=== PATIENT | male | born 1955 | race Caucasian/White ===

== ENCOUNTER 2019-11-09 18:35 | Inpatient (IN) | payer BC, OTHER ==
--- OUTSIDE RECORDS SUMMARY | 2019-11-09 18:47 | XMS REPORT | Continuity of Care Document ---
:1955 Author Organization [employer] Care Team Providers Name Role Phone [employer] Unavailable Un available Problems Problem Status Onset Classification Date Comments Sourc e Date Reported Abdominal aortic OPID aneurysm, without 018 9 Peace gar Land rupture Discharge Diagnosis: Sugar Flank pain 015 5 Land Discharge Diagnosis: Sugar Diverticulitis 015 5 Land SENT BY PCP Active Sugar 015 Land BACK PAIN Active Condition Medical 015 5 Group Backache (finding) Active Problem Data [facility] Medical 015 9 migrated Group,Surg from GE [facility] Specialty on 11/06/14. [facility] OPID One[facility], Oneco Dizziness (finding) Active Problem Data migrated from GE [facility] on 11/06/14. Medical 015 9 Data migrated from G E [facility] on 11/06/14. [facility] Data migrated from G E [facility] on 10/01/14. [facility] OPID Oneco, [facility] TACHYCARDIA Active Condition Medic al 015 5 Group Tachycardia (finding) Active Problem Kirill a migrated from GE [facility] on 11/06/14. Medical 015 0 Data migrated from G [facility] on 11/06/14. [facility] Data migrated from G [facility] on 10/01/14. [facility] OPID Oneco, One[facility] DIARRHEA Inactive Condition Medical 015 5 Group ELEVATED LIVER ENZYMES Active Condition Medical 015 5 Group Liver enzymes abnormal Active Problem Da ta migrated from GE [facility] on 11/06/14. Medical (finding) 015 0 Data migrated from G [facility] on 11/06/14. Group,Surg Data migrated from G [facility] on 10/01/14. [facility], OPID Oneco, Oneco DIZZINESS Inactive Condition Medical 015 5 Group ACUTE BRONCHITIS Inactive Condition Medical 014 5 Group HYPERTENSION Active Condition [place] 013 4 [facility] HYPERCHOLESTEROLEMIA Active Condition [place] 013 4 [facility] ASTHMA Active Condition [place] 013 4 [facility] PERIPHERAL VASCULAR Active Condition Medical DISEASE 013 5 Group Peripheral vascular Active Problem Data migrated from GE [facility] on 11/06/14. Medical disease (disorder) 013 0 Data migrat ed from GE [facility] on 09/28/14. Group,[facility], OPID Oneco, Oneco LEG PAIN Active Condition Medical 013 5 Group Pain in lower limb Active Problem Data m igrated from GE [facility] on 11/06/14. Medical (finding) 013 9 Data migrated from G [facility] on 09/28/14. Group,[facility], OPID Oneco, Oneco KNEE PAIN, RIGHT Active Condition Medical 013 5 Group Knee pain (finding) Active Problem Data migrated from GE [facility] on 11/06/14. Medical 013 9 Data migrated from G E [facility] on 09/28/14. Group,[facility], OPID Oneco, Oneco GASTROINTESTINAL Active Condition Medical HEMORRHAGE 013 5 Group CHEST WALL PAIN, ACUTE Inactive Condition Medical 013 5 Group Chest wall pain Active Problem Data MH M edical (finding) 013 9 migrated Group, [facility] 09/[facility]14. Center,[facility] OPID Oneco, Oneco Gastrointestinal Active Problem Data tena rated from GE [facility] on 11/06/14. Medical hemorrhage (disorder) 013 9 Data tena rated from GE [employer] on 09/28/14. Group,[facility], OPID Oneco, Oneco VIRAL GASTROENTERITIS Inactive Condition Medical 013 5 Group PSA, INCREASED Active Condition [facility] dical 013 5 Group HYPERLIPIDEMIA Active Condition [facility] dical 013 5 Group Hyperlipidemia Active Problem Data migra emanuel from GE [facility] on 11/06/14. Medical (disorder) 013 8 Data migrated from GE [facility] on 09/28/14. Group,[facility], OPID Oneco, Oneco Raised prostate Active Problem Data migr ated from GE [facility] on 11/06/14. Medical specific antigen 013 9 Data migrated from GE [facility] on 09/28/14. Group, (finding) [facility], OPID Oneco, Oneco UNSPECIFIED VITAMIN D Active Condition Medical DEFICIENCY 012 5 Group Vitamin D deficiency Active Problem Data migrated from GE [facility] on 11/06/14. Medical (disorder) 012 0 Data migrated from GE [facility] on 09/28/14. Group,[facility], OPID Oneco, Oneco BENIGN PROSTATIC Active Condition Ranjeet hmond HYPERTROPHY, HX OF, 4 Bone & S/P TURP Joint HAND PAIN, LEFT Active Condition [place] 4 [facility] KNEE PAIN, LEFT Active Condition [facility] [place] [facility] JOINT EFFUSION Active Condition [place] 4 [facility] FOOT PAIN, LEFT Active Condition [place] 4 [facility] HTN Active Condition Medical 5 Group HYPERURICEMIA Active Condition [place] 5 [facility], Medical Group BURSITIS Active Condition Medical 5 Group GOUT Active Condition [facility], Medical Group AAA Active Condition Medical 5 Group SHOULDER PAIN Inactive Condition Med ical 5 Group OSTEOARTHRITIS Active Condition [facility] dical 5 Group MURMUR Active Condition Medical 5 Group HYPERTENSION - Active Condition [facility] dical ESSENTIAL - 5 Group UNCONTROLLED Prostatic structure Problem 6swelling Surgical (body structure) 5 [facility] Abdominal aortic Active Problem Data tena rated from [facility] on 11/06/14. Medical aneurysm (disorder) 0 Data migra emanuel from [employer] [facility] on 09/28/14. Group,Surg [facility], OPID Oneco, Oneco Benign prostatic Active Problem Medical hyperplasia (disorder) 0 Group, OPID Oneco, Oneco Gout (disorder) Active Problem [facility] edical 0 Group,[facility], OPID Oneco,[facility] Heart murmur (finding) Active Problem Da ta migrated from GE [facility] on 11/06/14. Medical 0 Data migrated from G E [facility] on 11/06/14. [facility] Data migrated from G E [facility] on 10/01/14. [place] Data migrated from G E [facility] on 09/28/14. Medical Center, OPID Oneco, Oneco Herpes zoster Active Problem Med ical (disorder) 0 Group, OPID One[facility] Hypertensive disorder, Active Problem Medical systemic arterial 0 Gr oup,Surg (disorder) [facility], OPID Oneco, Oneco Mixed hyperlipidemia Active Problem Medical (disorder) 0 Group, OPID [facility] Obesity (disorder) Active Problem H Medical 0 Group, OPID Oneco, Oneco Osteoarthritis Active Problem Data migra emanuel from [facility] on 11/06/14. Medical (disorder) 0 Data migrated from [facility] on 09/28/14. Group,[facility], OPID Oneco, Oneco Patient encounter Active Problem Medical status (finding) 0 Julia up, OPID Oneco Benign hypertension Active Problem Data Medical (disorder) 9 migrated Group, from [facility] on 09/28/14. [place],M [facility] OPID Oneco, Oneco Bronchitis (disorder) Resolved Problem Medical 9 Group, OPID Oneco, Oneco Bursitis (disorder) Active Problem Data Medical 9 migrated Group, from [facility] on 09/28/14. [place],M H OPID Oneco, Oneco Blood in urine Resolved Problem Me dical (finding) 9 Group, OPID Oneco, Oneco Hypercholesterolemia Resolved Problem Medical (disorder) 9 Group, OPID Oneco, Oneco Hyperuricemia Active Problem Data Med ical (disorder) 9 migrated Group, from [facility] on 09/28/14. [place],M H OPID Oneco, Oneco Shoulder pain Active Problem Data Med ical (finding) 9 migrated Group, from [facility] on 09/28/14. [place],M H OPID Oneco, Oneco Body mass index 30+ - Active Problem Medical obesity (finding) 9 Gr oup Steatosis of liver Active Problem [facility] Medical (disorder) 0 Group Trigger thumb of left Active Problem Medical hand 0 Group Triggering of digit Active Problem Medical (disorder) 0 Group Medications Medication Details Route Status Patient Ordering Order Source Instructions Provider Date atorvastatin 40 See Active 10/16/ Medic al mg oral tablet Instructions, 2019 Julia up TAKE 1 TABLET BY MOUTH EVERYDAY AT BEDTIME, # 90 tab, 3 Refill(s), Pharmacy: [id number], 177.8, cm, 10/17/19 9:23:00 CDT, Height, 97.727, kg, 10/17/19 9:23:00 CDT, Weight allopurinol 100 = 1 tab, PO, Active Medical mg oral tablet Daily, # 90 2019 Group tab, Pharmacy: [facility]/pharmacy #[id number] indomethacin 50 = 1 cap, PO, Active Medical mg oral capsule TID, PRN 2019 Grou p NEEDED FOR PAIN, # 30 unknown unit, Refill(s) 1, Pharmacy: [facility]/pharmacy #[id number] Metoprolol = 1 tab, PO, Active Medic al Succinate ER 50 BID, # 180 tab, 2019 Group mg oral tablet, Refill(s) 3, extended release Pharmacy: [facility]/pharmacy #[id number] allopurinol 100 = 1 tab, PO, Active Medical mg oral tablet Daily, # 90 2019 Group tab, Refill(s) 3, Pharmacy: [facility]/pharmacy #[id number] meloxicam 7.5 mg 7.5 mg = 1 tab, Active Medical oral tablet PO, Daily, STOP 2019 Grou p indocin, limit use of meloxicam if possible. (CRF stage 2/3), # 30 tab, 1 Refill(s), Pharmacy: [facility]/pharmacy #6723 Hydrocortisone 1 appl, TOP, Active M edical 25 MG/ML Topical TID, X 14 day, 2019 Group Cream # 20 gm, 0 Refill(s), Pharmacy: [facility]/pharmacy #6723 valacyclovir 1 gm = 1 tab, No Longer Medical 1000 MG Oral PO, Q8H, X 7 Active 2018 Group Tablet [Valtrex] day, # 21 tab, 0 Refill(s), Pharmacy: [facility]/pharmacy #6723 Mupirocin 0.02 1 appl, TOP, No Longer Medical MG/MG Topical TID, X 5 day, # Active 2018 Gr oup Ointment 22 gm, 0 [Bactroban] Refill(s), Pharmacy: [facility]/pharmacy #[id number] atorvastatin 40 40 mg = 1 tab, Active 04/18/ M H Medical mg oral tablet PO, Bedtime, # 2018 Gr oup 90 tab, 1 Refill(s), Pharmacy: [facility]/pharmacy #6723 ezetimibe 10 MG 1 tab, PO, No Longer Medical / Simvastatin 80 Daily, # 90 Active 2018 Julia up MG Oral Tablet tab, 3 Refill(s), Pharmacy: [facility]/pharmacy #6723 amLODIPine 10 mg 10 mg = 1 tab, Active Medical oral tablet PO, Daily, # 90 2018 Grou p tab, 3 Refill(s), Pharmacy: [facility]/pharmacy #6723 Tamsulosin 0.4 mg = 1 cap, Active Me dical hydrochloride PO, Daily, # 90 2017 Gr oup 0.4 MG Oral cap, 3 Capsule [Flomax] Refill(s), Pharmacy: [facility]/pharmacy #6723 Mupirocin 20 1 appl, TOP, No Longer M edical MG/ML Topical TID, X 5 day, # Active 2017 Gr oup Cream 30 gm, 0 Refill(s), Pharmacy: [facility]/pharmacy #6723 Ciprofloxacin 500 mg = 1 tab, No Longer Medical 500 MG Oral PO, Q12H, Start Active 2017 Grou p Tablet [Cipro] the day before your scope procedure, X 3 day, # 6 tab, 0 Refill(s), Pharmacy: [facility]/pharmacy #6723 Breo Ellipta 200 1 puff, Active Medi adeola mcg-25 mcg/inh INHALATION, 2018 Group inhalation Daily, # 1 box, powder 11 Refill(s), Pharmacy: [facility]/pharmacy #6723 allopurinol 100 100 mg = 1 tab, Active Medical mg oral tablet PO, Daily, # 30 2018 G roup tab, 10 Refill(s), Pharmacy: [facility]/pharmacy #6723 Fluconazole 200 200 mg = 1 tab, No Longer Medical MG Oral Tablet PO, Daily, X 14 Active 2017 G roup [Diflucan] day, # 14 tab, 0 Refill(s), Pharmacy: [facility]/pharmacy #6723 predniSONE 10 mg See Special No Longer 01/03/ M H Medical oral tablet Instructions, Active 2018 Group PO, Daily, with food, X 16 day, # 42 tab, 0 Refill(s), Pharmacy: [facility]/pharmacy #[id number], take 4 pills for 4 days, then 3 pills for 4 days, then 2 pills for 4 days and 1 pill for 4 days and then stop levofloxacin 750 750 mg = 1 tab, No Longer 01/03 Medical mg oral tablet PO, Q24H, X 14 Active 2017 Gr oup day, # 14 tab, 0 Refill(s), Pharmacy: [facility]/pharmacy #6723 Levofloxacin 500 500 mg = 1 tab, No Longer 12/21 Medical MG Oral Tablet PO, Q24H, X 10 Active 2017 Gr oup [Levaquin] day, # 10 tab, 0 Refill(s), Pharmacy: [facility]/pharmacy #6723 predniSONE 20 mg See No Longer Me dical oral tablet Instructions, 1 Active 2017 Grou p tab PO BID for 3 days then 1 po daily for 3 days then 1/2 po daily until gone, # 12 tab, 0 Refill(s), Pharmacy: [facility]/pharmacy #6723 Hydralazine 25 mg = 1 tab, No Longer Medical Hydrochloride 25 PO, BID, # 60 Active 2017 G roup MG Oral Tablet tab, 3 Refill(s), Pharmacy: [facility]/pharmacy #6723 Hydrocortisone 1 appl, TOP, No Longer Medical 25 MG/ML Topical TID, X 14 day, Active 2017 Group Cream # 30 gm, 0 Refill(s), Pharmacy: [facility]/pharmacy #6723 Amoxicillin 875 875 mg = 1 tab, No Longer Medical MG / Clavulanate PO, BID, X 10 Active 2017 G roup 125 MG Oral day, # 20 tab, Tablet 0 Refill(s), [Augmentin Pharmacy: 875-mg] [facility]/pharmacy #6723 {21 See Active Medical (Methylprednisol Instructions, 2018 G roup one 4 MG Oral PO, Take by Tablet [Medrol]) mouth as } Pack [Medrol directed on Dosepak] label., # 1 Pack, 0 Refill(s), Pharmacy: [facility]/pharmacy #[id number] allopurinol 100 100 mg = 1 tab, Active Medical mg oral tablet PO, Daily, # 30 2018 G roup tab, 6 Refill(s), Pharmacy: [facility]/pharmacy #6723 Amoxicillin 875 875 mg = 1 tab, Active Medical MG / Clavulanate PO, BID, X 10 2018 G roup 125 MG Oral day, # 20 tab, Tablet 0 Refill(s), [Augmentin Pharmacy: 875-mg] [facility]/pharmacy #6723 Acetaminophen 1 tab, PO, PRN, Active Medical 300 MG / Codeine 0 Refill(s) 2018 Julia up Phosphate 30 MG Oral Tablet [Tylenol with Codeine #3] Metoprolol See Active Medical Succinate ER 50 Instructions, # 2017 Group mg oral tablet, 60 tab, TAKE 1 extended release TABLET BY MOUTH 2 TIMES DAILY, Pharmacy: [facility]/pharmacy #[id number] Metoprolol 50 mg = 1 tab, Active Med ical Succinate ER 50 PO, BID, # 60 2017 Gr oup mg oral tablet, tab, 10 extended release Refill(s) triamcinolone 40 mg, Route: Inactive Medical ACETONIDE 40 IM, ONCE, 2017 Group mg/mL injectable Dosing Weight suspension 103.75, kg, (KENALOG), Start date: 03/22/17 15:07:00 MUSIC THEORY TEACHER, Stop date: 03/22/17 15:07:00 MUSIC THEORY TEACHER 200 ACTUAT See Active Medical Albuterol 0.09 Instructions, 2017 Julia up MG/ACTUAT INHALE 2 PUFFS Metered Dose BY MOUTH EVERY Inhaler [ProAir 4 HOURS HFA] NEEDED FOR WHEEZING, # 1 ea, 0 Refill(s), Pharmacy: [facility]/pharmacy #[id number] Codeine 5 ml, PO, Q6H, Active Medica l Phosphate 2 PRN for cough 2017 Group MG/ML / and congestion, Guaifenesin 20 X 14 day, # 240 MG/ML Oral mL, 0 Refill(s) Solution [Cheratussin] Levofloxacin 500 500 mg = 1 tab, Active Medical MG Oral Tablet PO, Q24H, X 7 2016 Julia up [Levaquin] day, # 7 tab, 0 Refill(s), Pharmacy: [facility]/pharmacy #6723 Azithromycin 5 See Active 03/15[facility] Medica l Day Dose Pack Instructions, 2017 Grou p 250 mg oral Take 2 tablets tablet by mouth the first day then 1 tablet by mouth days 2-5., X 5 day, # 6 tab, 0 Refill(s), Pharmacy: [facility]/pharmacy #[id number] Ciprofloxacin 500 mg, Route: Inactive [place] PO, ONCE, 2014 Land Dosing Weight 97.455, kg, Priority: STAT, Start date: 04/14/15 17:00:00, Stop date: 04/14/15 17:00:00 Ondansetron 4 mg, Route: Inactive Sug ar IVP, ONCE, 2014 Land Dosing Weight 97.455, kg, Priority: STAT, Start date: 04/14/15 15:46:00, Stop date: 04/14/15 15:46:00 Morphine 4 mg, Route: Inactive Sugar IVP, ONCE, 2014 Land Dosing Weight 97.455, kg, Priority: STAT, Start date: 04/14/15 15:46:00, Stop date: 04/14/15 15:46:00 Ondansetron 4 MG 4 mg = 1 tab, Active Sugar Disintegrating PO, TID, PRN 2014 Land Tablet [Zofran] Nausea and Vomiting, X 4 day, # 10 tab, 0 Refill(s), Pharmacy: [facility]/pharmacy #[id number] Acetaminophen 1 - 2 tab, PO, No Longer Sugar 300 MG / Codeine Q4H, PRN Pain, Active 2014 Land Phosphate 60 MG X 2 day, # 20 Oral Tablet ea, 0 Refill(s) [Tylenol with Codeine #4] Metronidazole 500 mg = 1 tab, Active Sugar 500 MG Oral PO, Q8H, X 10 2014 Land Tablet [Flagyl] day, # 30 tab, 0 Refill(s), Pharmacy: [facility]/pharmacy #[id number] Ciprofloxacin 500 mg = 1 tab, Active Sugar 500 MG Oral PO, Q12H, X 10 2014 Land Tablet [Cipro] day, # 20 tab, 0 Refill(s), Pharmacy: [facility]/pharmacy #[id number] Metronidazole 500 mg, Route: Inactive Sugar IVPB, ONCE, 2014 Land Dosing Weight 97.455, kg, Priority: STAT, Start date: 04/14/15 15:21:00, Stop date: 04/14/15 15:21:00 Ciprofloxacin 400 mg, Route: Inactive Sugar IVPB, ONCE, 2014 Land Dosing Weight 97.455, kg, Priority: STAT, Start date: 04/14/15 15:21:00, Stop date: 04/14/15 15:21:00 Acetaminophen 1 tab, PO, Q6H, Inactive 12/ M H Sugar 300 MG / Codeine PRN as needed 2014 L and Phosphate 30 MG for pain, X 4 Oral Tablet day, # 16 tab, [Tylenol with 0 Refill(s) Codeine #3] Sodium Chloride 250 mL, Rate: Inactive H Sugar 0.9% (titrate) Blankbook Forwarder for use 2014 L and 250 mL with blood product administration. , Dosing Weight 97.455, kg, Route: IV, Total Volume: 250, Priority: Routine, Start Date: 04/14/15 12:33:00, Duration: 30 day, Stop date: 05/14/15 12:32:00, Replace Every: 24 hr Saline Flush Notes: (Same Inactive Peace gar 0.9% as: BD 2014 Land Posiflush) Morphine Notes: (Same Inactive Sugar as:MORPhine 2014 Sulfate) Ondansetron Notes: (Same Inactive Sug ar as: Zofran) 2014 MEDICATION WASTE Product Size: 4 mg Product Wasted: ___ mg hydrALAZINE 25 mg = 1 tabs, Inactive [facility] 03/07/ Raphael gical Tab, Oral, 2014 Specialty first dose [facility] 03/07/15 of Sugar 9:00:00 MUSIC THEORY TEACHER, Land Patient's Own Meds bisacodyl 10 mg = 1 supp, Inactive [place] 03/07/ Surgi adeola Supp, NH, Once, 2014 Specialt first dose [facility] 03/07/15 of Sugar 8:00:00 MUSIC THEORY TEACHER, Land stop date 03/07/15 8:00:00 MUSIC THEORY TEACHER multivitamin 1 tabs, Tab, No Longer [place] 03/06/ Surg ical with minerals Oral, Daily, Active 2014 Speci alty first dose [facility] 03/06/15 of Sugar 9:00:00 MUSIC THEORY TEACHER Land Vytorin 10 mg-80 1 tabs, Misc, No Longer [facility] 03/06/ Surgical mg oral tablet Oral, Daily, Active 2014 Spec ialty first dose [facility] 03/06/15 of Sugar 9:00:00 MUSIC THEORY TEACHER, Land Patient's Own Meds amlodipine 10 mg = 1 tabs, No Longer [place] 03/06/ Raphael gical Tab, Oral, Active 2014 Specialty Daily, first Hospital dose 03/06/15 of Sugar 9:00:00 MUSIC THEORY TEACHER Land Flomax 0.4 mg = 1 No Longer [place] 03/06/ Surgical caps, Cap, Active 2014 Specialty Oral, BID, Hospital first dose of [place] 03/06/15 Land 9:00:00 MUSIC THEORY TEACHER Colace 200 mg = 2 No Longer [place] 03/06/ Surgical caps, Cap, Active 2014 Specialty Oral, BID, Hospital first dose of [place] 03/05/15 Land 21:00:00 MUSIC THEORY TEACHER Milk of Magnesia 30 mL, Susp, No Longer [place] 03/06/ Surgical Oral, BID, Active 2014 Specialty first dose Hospital 03/05/15 of Sugar 21:00:00 MUSIC THEORY TEACHER Land Metoprolol 50 mg = 2 tabs, No Longer [place] 03/06/ Raphael gical SUCCinate ER Tab-ER, Oral, Active 2014 Speci alty BID, first dose Hospital 03/05/15 of Sugar 21:00:00 MUSIC THEORY TEACHER Land hydrALAZINE 25 mg = 1 tabs, No Longer [place] 03/06/ Peace rgical Tab, Oral, BID, Active 2014 Specialt y first dose Hospital 03/05/15 of Sugar 21:00:00 MUSIC THEORY TEACHER, Land Patient's Own Meds OxyCONTin 20 mg = 2 tabs, No Longer [place] 03/06/ Surg ical Tab-ER, Oral, Active 2014 Specialty q12hr, first Hospital dose 03/05/15 of Sugar 18:00:00 MUSIC THEORY TEACHER Land ceFAZolin 2 gm, Soln-IV, [id number] [place] 03/05/ Surgi adeola IV Piggyback, 2015 Specialty q8hr, [facility] over 30 of Sugar minutes, order Land duration: 3 doses, first dose 03/05/15 15:30:00 MUSIC THEORY TEACHER, stop date 03/06/15 15:29:00 MUSIC THEORY TEACHER ferrous sulfate 325 mg = 1 Active [place] 03/05/ Surgi adeola 325 mg (65 mg tabs, Oral, 2014 Specia lty elemental iron) TID, # 90 tabs, Hospital oral tablet 0 Refill(s) of One[facility] Colace 100 mg 100 mg = 1 Active [facility] 03/05/ Surgica l oral capsule caps, Oral, 2014 Special ty BID, PRN for Hospital constipation, # of Sugar 60 caps, 0 Land Refill(s) Metoprolol 50 mg, Oral, Active 03/05/ Surgical SUCCinate ER BID, 0 2014 Specialty Refill(s), Hospital hypertension of [facility] Saline Lock 10 mL, Soln, IV No Longer [place] 03/05/ Peace rgical Flush Push, q8hr, Active 2015 Specialty first dose Hospital 03/05/15 of Sugar 12:00:00 MUSIC THEORY TEACHER Land Phenergan 25 mg = 1 mL, No Longer [place] 03/05/ Surgic al Injection, IM, Active 2015 Specialty q6hr PRN for Hospital nausea/vomiting of Sugar , first dose Land 03/05/15 11:46:00 MUSIC THEORY TEACHER Robaxin IVPB 1 gm, IV No Longer [place] 03/05/ Surgical Piggyback, q8hr Active 2015 Specialt y PRN for muscle Hospital spasms, infuse of Sugar over 30 Land minutes, first dose 03/05/15 11:46:00 MUSIC THEORY TEACHER D5W - 0.45NaCl 1,000 mL, IV, No Longer [place] 03/05/ S urgical with 20 mEq KCl 100 mL/hr, Active 2014 Speci alty 1,000 mL start date Hospital 03/05/15 of Sugar 11:46:00 MUSIC THEORY TEACHER Land Benadryl 50 mg = 2 caps, No Longer [place] 03/05/ Surgi adeola Cap, Oral, q6hr Active 2015 Specialt y PRN for Hospital itching, first of Sugar dose 03/05/15 Land 11:46:00 MUSIC THEORY TEACHER Tylenol 500 mg = 1 No Longer [place] 03/05/ Surgical tabs, Tab, Active 2014 Specialty Oral, q6hr PRN Hospital for temp of Sugar greater than Land 101.5 F (38.6 C), first dose 03/05/15 11:46:00 CSTMax 4gm acetaminophen in 24 hours Saline Lock 10 mL, Soln, IV No Longer [place] 03/05/ Peace rgical Flush Push, As Active 2014 Specialty Indicated PRN Hospital for flush, of [place] first dose Land 03/05/15 11:46:00 MUSIC THEORY TEACHER Zofran 4 mg = 2 mL, No Longer [place] 03/05/ Surgical Injection, IV Active 2015 Specialty Push, q6hr PRN Hospital for of [place] nausea/vomiting Land , first dose 03/05/15 11:46:00 MUSIC THEORY TEACHER Miramonte 10 mg-325 2 tabs, Tab, No Longer [place] 11/04/ S urgical mg oral tablet Oral, q4hr PRN Active 2014 Sp ecialty for pain severe Hospital (7-10), first of Sugar dose 03/05/15 Land 11:46:00 CSTMax 4gm acetaminophen in 24 hours morphine 3 mg = 0.3 mL, No Longer [place] 03/05/ Surgic al Injection, IV Active 2014 Specialty Push, q3hr PRN Hospital for of [place] breakthrough Land pain, first dose 03/05/15 11:46:00 MUSIC THEORY TEACHER bisacodyl 10 mg = 2 tabs, No Longer [place] 03/05/ Surg ical Tab-DR, Oral, Active 2014 Specialty Daily PRN for Hospital constipation, of [place] first dose Land 03/05/15 11:46:00 MUSIC THEORY TEACHER Robaxin IVPB 1 gm, IV Inactive [facility] 03/05/ Surgical Piggyback, LINER MACHINE OPERATOR 2015 Specialty Once, infuse Hospital over 30 of Sugar minutes, first Land dose 03/05/15 11:00:00 MUSIC THEORY TEACHER, stop date 03/05/15 11:00:00 MUSIC THEORY TEACHER Xopenex 0.63 0.63 mg = 3 mL, Inactive [place] 03/05/ Peace rgical mg/3 mL Soln, NEB, Once 2015 Specialt y inhalation PRN for Hospital solution shortness of of Sugar breath or Land wheezing, first dose 03/05/15 10:47:00 MUSIC THEORY TEACHER ondansetron 4 mg = 2 mL, Inactive [place] 03/05/ Surgic al Injection, IV 2015 Specialty Push, q15min Hospital PRN for of [place] nausea/vomiting Land , order duration: 2 doses, first dose 03/05/15 10:47:00 MUSIC THEORY TEACHER, stop date Limited # of times promethazine 12.5 mg = 0.5 Inactive [place] 03/05/ Surg ical mL, Injection, 2015 Specialty IM, Once PRN Hospital for severe of [place] nausea, first Land dose 03/05/15 10:47:00 MUSIC THEORY TEACHER Saline Lock 10 mL, Soln, IV Inactive [place] 03/05/ Raphael gical Flush Push, As 2015 Specialty Indicated PRN Hospital for flush, of [place] first dose Land 03/05/15 10:47:00 MUSIC THEORY TEACHER Dilaudid 0.5 mg = 0.25 Inactive [place] 03/05/ Surgical mL, Injection, 2014 Specialty IV Push, q10min Hospital PRN for pain of [place] severe (7-10), Land first dose 03/05/15 10:47:00 MUSIC THEORY TEACHER Lactated Ringers IV, start date Inactive Marcus 03/05/ Surgical Injection 03/05/15 LINER MACHINE OPERATOR 2015 Specialty 10:44:00 MUSIC THEORY TEACHER, Hospital stop date of [place] 03/05/15 Land 10:44:00 MUSIC THEORY TEACHER SUFentanil + 26 mcg = 0.52 Inactive Marcus 03/05/ Surg ical propofol 254.8 mL, Injection, LINER MACHINE OPERATOR 2015 Sp ecialty mg IV, Once, first Hospital dose 03/05/15 of [place] 10:02:15 MUSIC THEORY TEACHER, Land stop date 03/05/15 10:02:15 MUSIC THEORY TEACHER SUFentanil + 25.654 mcg = Inactive Marcus 03/05/ Surgi adeola propofol 251.409 0.51 mL, LINER MACHINE OPERATOR 2015 Specia lty mg Injection, IV, Hospital Once, first of [place] dose 03/05/15 Land 10:02:15 MUSIC THEORY TEACHER, stop date 03/05/15 10:02:15 MUSIC THEORY TEACHER ketamine 26 mg = 0.52 Inactive Marcus 03/05/ Surgical mL, Injection, LINER MACHINE OPERATOR 2015 Specialty IV, Once, first Hospital dose 03/05/15 of [place] 10:02:14 MUSIC THEORY TEACHER, Land stop date 03/05/15 10:02:14 MUSIC THEORY TEACHER propofol 256.54 mg = Inactive Marcus 03/05/ Surgical 25.65 mL, LINER MACHINE OPERATOR 2014 Specialty Emulsion, IV, Hospital Once, first of [place] dose 03/05/15 Land 10:02:11 MUSIC THEORY TEACHER, stop date 03/05/15 10:02:11 MUSIC THEORY TEACHER lidocaine 5 mL, Inactive Hopper 03/05/ Surgical Injection, IV, LINER MACHINE OPERATOR 2015 Specialty Once, first Hospital dose 03/05/15 of [place] 9:45:00 MUSIC THEORY TEACHER, [place] stop date 03/05/15 9:45:00 MUSIC THEORY TEACHER Lactated Ringers IV, start date Inactive Marcus 03/05/ Surgical Injection 03/05/15 LINER MACHINE OPERATOR 2015 Specialty 9:03:00 MUSIC THEORY TEACHER, Hospital stop date of [place] 03/05/15 Land 9:03:00 MUSIC THEORY TEACHER ePHEDrine 5 mg = 0.1 mL, Inactive Hopper 03/05/ Surgic al Injection, IV, LINER MACHINE OPERATOR 2015 Specialty Once, first Hospital dose 03/05/15 of [place] 9:01:00 MUSIC THEORY TEACHER, Land stop date 03/05/15 9:01:00 MUSIC THEORY TEACHER ePHEDrine 10 mg = 0.2 mL, Inactive Ward 03/05/ Surgi adeola Injection, IV, LINER MACHINE OPERATOR 2015 Specialty Once, first Hospital dose 03/05/15 of [place] 8:52:00 MUSIC THEORY TEACHER, Land stop date 03/05/15 8:52:00 MUSIC THEORY TEACHER dexamethasone 8 mg = 2 mL, Inactive Ward 03/05/ Surg ical Injection, IV, LINER MACHINE OPERATOR 2014 Specialty Once, first Hospital dose 03/05/15 of [place] 8:44:00 MUSIC THEORY TEACHER, Land stop date 03/05/15 8:44:00 MUSIC THEORY TEACHER ondansetron 4 mg = 2 mL, Inactive Ward 03/05/ Surgic al Injection, IV, LINER MACHINE OPERATOR 2014 Specialty Once, first Hospital dose 03/05/15 of [place] 8:44:00 MUSIC THEORY TEACHER, Land stop date 03/05/15 8:44:00 MUSIC THEORY TEACHER ePHEDrine 10 mg = 0.2 mL, Inactive Ward 03/05/ Surgi adeola Injection, IV, LINER MACHINE OPERATOR 2014 Specialty Once, first Hospital dose 03/05/15 of [place] 8:28:00 MUSIC THEORY TEACHER, Land stop date 03/05/15 8:28:00 MUSIC THEORY TEACHER ePHEDrine 5 mg = 0.1 mL, Inactive Ward 03/05/ Surgic al Injection, IV, LINER MACHINE OPERATOR 2014 Specialty Once, first Hospital dose 03/05/15 of [place] 8:26:00 MUSIC THEORY TEACHER, [place] stop date 03/05/15 8:26:00 MUSIC THEORY TEACHER phenylephrine + 0.1 mg = 0.01 Justus Hopper 03/05/ S urgical sterile water 1 mL, Injection, LINER MACHINE OPERATOR 2014 S pecialty mL IV, Once, first Hospital dose 03/05/15 of [place] 8:23:00 MUSIC THEORY TEACHER, stop date 03/05/15 8:23:00 MUSIC THEORY TEACHER propofol 60 mg = 6 mL, Inactive Ward 03/05/ Surgical Emulsion, IV, LINER MACHINE OPERATOR 2014 Specialty Once, first Hospital dose 03/05/15 of [place] 8:16:00 MUSIC THEORY TEACHER, [place] stop date 03/05/15 8:16:00 MUSIC THEORY TEACHER propofol 40 mg = 4 mL, Inactive Ward 03/05/ Surgical Emulsion, IV, LINER MACHINE OPERATOR 2015 Specialty Once, first Hospital dose 03/05/15 of [place] 8:10:00 MUSIC THEORY TEACHER, [place] stop date 03/05/15 8:10:00 MUSIC THEORY TEACHER Misc Medication 1,000 mL, Justus Corbin 03/05/ Surgi adeola Soln-IV, IV, 2015 Specialty Once, first Hospital dose 03/05/15 of [place] 8:10:00 MUSIC THEORY TEACHER, [place] stop date 03/05/15 8:10:00 MUSIC THEORY TEACHER succinylcholine 100 mg = 5 mL, Inactive Ward 03/05/ Surgical Injection, IV, LINER MACHINE OPERATOR 2014 Specialty Once, first Hospital dose 03/05/15 of [place] 8:03:00 MUSIC THEORY TEACHER, stop date 03/05/15 8:03:00 MUSIC THEORY TEACHER propofol 100 mg = 10 mL, Inactive Ward 03/05/ Surgic al Emulsion, IV, LINER MACHINE OPERATOR 2014 Specialty Once, first Hospital dose 03/05/15 of [place] 8:02:00 MUSIC THEORY TEACHER, [place] stop date 03/05/15 8:02:00 MUSIC THEORY TEACHER rocuronium 5 mg = 0.5 mL, Inactive Ward 03/05/ Surgi adeola Injection, IV, LINER MACHINE OPERATOR 2014 Specialty Once, first Hospital dose 03/05/15 of [place] 8:01:00 MUSIC THEORY TEACHER, stop date 03/05/15 8:01:00 MUSIC THEORY TEACHER lidocaine 5 mL, Inactive Ward 03/05/ Surgical Injection, IV, LINER MACHINE OPERATOR 2014 Specialty Once, first Hospital dose 03/05/15 of [place] 8:01:00 MUSIC THEORY TEACHER, stop 03/05/15 8:01:00 MUSIC THEORY TEACHER fentaNYL 100 mcg = 2 mL, Inactive Ward 03/05/ Surgic al Injection, IV, LINER MACHINE OPERATOR 2014 Specialty Once, first Hospital dose 03/05/15 of [place] 8:00:00 MUSIC THEORY TEACHER, stop 03/05/15 8:00:00 MUSIC THEORY TEACHER fentaNYL 50 mcg = 1 mL, Inactive Ward 03/05/ Surgica l Injection, IV, LINER MACHINE OPERATOR 2014 Specialty Once, first Hospital dose 03/05/15 of [place] 7:59:00 MUSIC THEORY TEACHER, stop 03/05/15 7:59:00 MUSIC THEORY TEACHER midazolam 1 mg = 1 mL, Inactive Ward 03/05/ Surgical Injection, IV, LINER MACHINE OPERATOR 2014 Specialty Once, first Hospital dose 03/05/15 of [place] 7:59:00 MUSIC THEORY TEACHER, stop date 03/05/15 7:59:00 MUSIC THEORY TEACHER ceFAZolin 2 gm, Soln-IV, Inactive Ward 03/05/ Surgic al IV Piggyback, LINER MACHINE OPERATOR 2014 Specialty Once, first Hospital dose 03/05/15 of [place] 7:56:00 MUSIC THEORY TEACHER, [place] stop date 03/05/15 7:56:00 MUSIC THEORY TEACHER Keflex 500 mg 500 mg = 1 Active Etminan 11/04/ Surgica l oral capsule caps, Oral, 2015 Special ty q12hr, # 20 Hospital caps, 0 of [place] Refill(s) [place] Soma 350 mg oral 350 mg = 1 Active Etminan 03/05/ Surg ical tablet tabs, Oral, 2015 Specialty TID, X 14 days, Hospital # 42 tabs, 0 of [place] Refill(s) [place] midazolam 1 mg = 1 mL, Inactive Ward 03/05/ Surgical Injection, IV, LINER MACHINE OPERATOR 2014 Specialty Once, first Hospital dose 03/05/15 of [place] 7:50:00 MUSIC THEORY TEACHER, Land stop date 03/05/15 7:50:00 MUSIC THEORY TEACHER fentaNYL 50 mcg = 1 mL, Inactive Ward 03/05/ Surgica l Injection, IV, LINER MACHINE OPERATOR 2014 Specialty Once, first Hospital dose 03/05/15 of [place] 7:50:00 MUSIC THEORY TEACHER, [place] stop date 03/05/15 7:50:00 MUSIC THEORY TEACHER Neurontin 600 mg = 2 Inactive Etminan 03/05/ Surgical caps, Cap, 2014 Specialty Oral, Once, Hospital first dose of [place] 03/05/15 Land 6:00:00 MUSIC THEORY TEACHER, stop date 03/05/15 6:00:00 MUSIC THEORY TEACHER, Give 1 hour pre-operatively ceFAZolin 2 gm, Soln-IV, Inactive Etminan 03/05/ Surgic al IV Piggyback, 2014 Specialty Once, infuse Hospital over 30 of [place] minutes, first [place] dose 03/05/15 6:00:00 MUSIC THEORY TEACHER, stop date 03/05/15 6:00:00 MUSIC THEORY TEACHER, patient weight 50-120 kg, Prophylaxis OxyCONTin 20 mg = 2 tabs, Inactive Etminan 03/05/ Surgi adeola Tab-ER, Oral, 2014 Specialty Pre Op, first Hospital dose 03/05/15 of [place] 5:51:00 MUSIC THEORY TEACHER [place] Lidocaine 2% 0.2 0.2 mL, Inactive Corbin 03/05/ Surgic al mL IV Start Injection, 2014 Specialty [[place]] Subcutaneous, Hospit al Once PRN for of [place] other (see [place] comment), first dose 03/05/15 5:50:00 MUSIC THEORY TEACHER LR 1,000 mL 1,000 mL, IV, Inactive Corbin 03/05/ Surgi adeola 30 mL/hr, start 2015 Specialt y date 03/05/15 Hospital 5:50:00 MUSIC THEORY TEACHER of [facility] Medrol Dosepak 4 See Active 03/04/ Surgica l mg oral tablet Instructions, 2014 Spe cialty as directed on Hospital package of [place] labeling, 0 [place] Refill(s), gout right handas directed on package labeling ProAir HFA puffs, INH, Active 03/03/ Surgical QID, med 2014 Specialty 09/13 Hospital use as needed- of [place] last used > 4 Land months ago, 0 Refill(s), wheezing 4 months ago Viagra 100 mg 100 mg = 1 Active 03/03/ Surgica l oral tablet tabs, Oral, 2014 Specialt y Daily, PRN for Hospital erectile of [place] dysfunction, pt [place] did not bring instructed pt to not take any until after surgery date, 0 Refill(s), EDpt did not bring instructed pt to not take any until after surgery date Duexis 800 See Active 03/03/ Surgical mg-26.6 mg oral Instructions, 2014 Sp ecialty tablet pt did not Hospital bring 0.5 of [place] tabs Oral as [place] needed, 0 Refill(s), painpt did not bring 0.5 tabs Oral as needed Miramonte 10 mg-325 1 tabs, Oral, Active 03/03/ [place] rgical mg oral tablet q6hr, 0 2014 Specialty Refill(s), pain Hospital of [facility] Vitamin D3 1999 4,000 IntUnit = Active 03/03/ Surgical intl units oral 2 tabs, Oral, 2014 Sp ecialty tablet Daily, pt did Hospital not bring, 0 of [place] Refill(s), [place] supplementpt did not bring hydrALAZINE 25 25 mg = 1 tabs, Active urgical mg oral tablet Oral, BID, ok 2014 Spe cialty take am of Hospital procedure, 0 of [place] Refill(s), [place] heart/htnok take am of procedure Flomax 0.4 mg 0.4 mg = 1 Active 03/03/ Surgica l oral capsule caps, Oral, 2014 Special ty Daily, 0 Hospital Refill(s), of [place] prostate [place] Vytorin 10 mg-80 1 tabs, Oral, Active urgical mg oral tablet Daily, 0 2014 Specialt y Refill(s), Hospital cholesterol of [facility] metoprolol 50 mg, Oral, No Longer 03/03/ Surgic al Daily, ok take Active 2014 Specialty am of surgery, Hospital 0 Refill(s), of [place] hypertensionok [place] take am of surgery amlodipine 10 mg 10 mg = 1 tabs, Active 03/03/ Surgical oral tablet Oral, Daily, 2014 Special ty take am of Hospital surgery, 0 of [place] Refill(s), [place] hypertensiontak e am of surgery cyclobenzaprine 10 mg, Oral, pt Active 03/03/ Surgical did not bring, 2014 Specialty 0 Refill(s), Hospital backpt did not of [place] bring [place] Colcrys 0.6 mg 0.6 mg = 1 Active 03/03/ Surgic al oral tablet tabs, Oral, 2014 Specialt y BID, pt did not Hospital bring, # 30 of [place] tabs, 0 [place] Refill(s), goutpt did not bring MEDROL (FRANSISCA) 4 as directed. No Longer Medical MG TABS Active 2014 Group MEDROL (FRANSISCA) 4 as directed. No Longer Medical MG TABS Active 2014 Group METOPROLOL 1 tablet PO BID Active Me dical SUCCINATE ER 50 2014 Group MG [id number] METOPROLOL 1/2 po bid. Active Medica l TARTRATE 25 MG 2014 Group TABS METOPROLOL 1/2 po bid. Active Medica l TARTRATE 25 MG 2014 Group TABS METOPROLOL 1 po bid No Longer Medical SUCCINATE 50 MG Active 2014 Group [id number] METOPROLOL 1 po bid No Longer Medical SUCCINATE 50 MG Active 2014 Group [id number] METOPROLOL 1 po bid No Longer Medical SUCCINATE 50 MG Active 2014 Group [id number] PROBENECID 500 1 po bid No Longer Med ical MG TABS Active 2013 Group DUEXIS 800-26.6 1 po bid prn No Longer 12/20/ H Medical MG TABS pain Active 2013 Group CYCLOBENZAPRINE 1 po qhs Active Medi adeola HCL 10 MG TABS 2013 Group CYCLOBENZAPRINE 1 po qhs Active Medi adeola HCL 10 MG TABS 2013 Group PROBENECID 500 1 po bid No Longer Med ical MG TABS Active 2013 Group CYCLOBENZAPRINE 1 po qhs Active Medi adeola HCL 10 MG TABS 2013 Group PROBENECID 500 1 po bid No Longer Med ical MG TABS Active 2013 Group CYCLOBENZAPRINE 1 po qhs Active Medi adeola HCL 10 MG TABS 2013 Group VENTOLIN HFA 108 2 puff q4h prn No Longer Medical (90 BASE) wheezing Active 2013 Group MCG/ACT AERS BACTROBAN 2 % apply bid No Longer Med ical OINT Active 2013 Group VENTOLIN HFA 108 2 puff q4h prn No Longer Medical (90 BASE) wheezing Active 2013 Group MCG/ACT AERS ZITHROMAX Z-FRANSISCA as directed No Longer Medical 250 MG TABS Active 2013 Group DUEXIS 800-26.6 1 tb po BID prn Active 06/08/ [place] MG TABS pain 2013 [facility] ALLOPURINOL 100 2 tb po qd Active 05/16/ [place] MG TABS 2013 [facility] COLCRYS 0.6 MG 1 tab qd Active 03/28/ [place] TABS 2012 [facility] PREDNISONE 5 MG 1po qd No Longer 03/28/ [place] TABS Active 2012 [facility] MEDROL (FRANSISCA) 4 as directed No Longer Medical MG TABS Active 2012 Group MEDROL (FRANSISCA) 4 as directed No Longer 03/19/ Medical MG TABS Active 2012 Group ALLOPURINOL 100 1 po qd No Longer Med ical MG TABS Active 2012 Group ALLOPURINOL 100 1 po qd No Longer Med ical MG TABS Active 2012 Group ALLOPURINOL 100 1 po qd No Longer 02/28/ MH Med ical MG TABS Active 2012 Group ALLOPURINOL 100 1 po qd No Longer Med ical MG TABS Active 2012 Group ALLOPURINOL 100 1 po qd No Longer 02/28/ Med ical MG TABS Active 2012 Group HYDRALAZINE HCL one po bid. Active M edical 25 MG TABS 2012 Group NORCO 5-325 MG per other M.D. Active 02/16/ Al madelinemond TABS 2013 [facility] HM VITAMIN D3 OTC Active 02/16/ Kenneth 2000 UNIT CAPS 2013 [facility] PROBENECID 500 per other M.D. Active 02/16/ Moon chmond MG TABS 2012 [facility] VYTORIN 10-80 MG per other M.D. Active Kenneth TABS 2013 [facility] AMLODIPINE-ATORV per other M.D. Active Kenneth ASTATIN 10-10 MG 2013 Bone & TABS Joint FLOMAX CAPS per other M.D. Active 02/16/ Fred ond 2013 [facility] METOPROLOL per other M.D. Active Gaurang nd SUCCINATE ER 50 2012 [facility] & MG [id number] Joint SULFAMETHOXAZOLE per other M.D. Active Kenneth -TMP DS TABS 2012 [facility] COLCRYS 0.6 MG per other M.D. No Longer 02/16/ Kenneth TABS Active 2012 [facility] MOBIC 15 MG TABS per other M.D. No Longer Kenneth Active 2012 [facility] HYDROCODONE-ACET per other M.D. No Longer Kenneth AMINOPHEN 10-325 Active 2012 Bone & MG TABS Joint ALLOPURINOL 100 1 tab [facility]d [facility] 2012 [facility] COLCRYS 0.6 MG 1 po qod Active Medic al TABS 2012 Group COLCRYS 0.6 MG 1 po qd Active Medica l TABS 2012 Group COLCRYS 0.6 MG 1 po qd Active Medica l TABS 2012 Group PRAVACHOL 40 MG 1 PO daily ON No Longer Medical TAB EMPTY STOMACH. Active 2012 Group CIPRO 500 MG No Longer Medica l TABS Active 2012 Group EDARBI 80 MG one tab po qd No Longer Medical TABS Active 2012 Group EDARBI 80 MG one tab po qd No Longer Medical TABS Active 2012 Group AVODART 0.5 MG No Longer Medi adeola CAPS Active 2012 Group AVODART 0.5 MG No Longer Medi adeola CAPS Active 2012 Group MEDROL (FRANSISCA) 4 as directed No Longer Medical MG TABS Active 2012 Group MEDROL (FRANSISCA) 4 as directed No Longer Medical MG TABS Active 2012 Group CLINDAMYCIN HCL take every six No Longer Medical 300 MG CAPS hours po Active 2012 Group MOBIC 15 MG TABS 1 po qam pc No Longer 11/08/ M H Medical Active 2012 Group CLINDAMYCIN HCL take every six No Longer Medical 300 MG CAPS hours po Active 2012 Group CLINDAMYCIN HCL take every six No Longer Medical 300 MG CAPS hours po Active 2012 Group VIAGRA 100 MG 1 po as Active Medical TABS directed 2012 Group VIAGRA 100 MG 1 po as Active 11/01/ Medical TABS directed 2012 Group NORCO 10-325 MG 1 po q6h prn Active 10/30/ Medical TABS back pain 2012 Group BACTRIM DS 1 po bid No Longer Medical 800-160 MG TABS Active 2012 Group ALLOPURINOL 300 1 po qd No Longer Med ical MG TABS Active 2012 Group PROAIR HFA 108 2 puff q4h prn Active 10/13/ Medical (90 BASE) wheezing 2012 Group MCG/ACT AERS CEPHALEXIN 500 TAKE ONE TAB BY No Longer Medical MG CAPS MOUTH EVERY SIX Active 2012 Group HOURS ALLOPURINOL 300 1 po qd No Longer Med ical MG TABS Active 2012 Group ALLOPURINOL 300 1 po qd No Longer Med ical MG TABS Active 2012 Group CEPHALEXIN 500 TAKE ONE TAB BY No Longer 10/13/ Medical MG CAPS MOUTH EVERY SIX Active 2012 Group HOURS ALLOPURINOL 300 1 po qd No Longer Med ical MG TABS Active 2012 Group INDOCIN 50 MG 1 po qd No Longer 07/12/ Medic al SUPP Active 2012 Group INDOMETHACIN 50 1 po qd pc prn No Longer 07/12/ Medical MG CAPS gout Active 2012 Group MEDROL (FRANSISCA) 4 No Longer Medi adeola MG TABS Active 2012 Group MEDROL (FRANSISCA) 4 No Longer Medi adeola MG TABS Active 2012 Group VITAMIN D3 2000 2 pills daily Active 12/27/ Medical UNIT CAPS 2011 Group VITAMIN D3 2000 2 pills daily Active 12/27/ Medical UNIT CAPS 2011 Group ALLOPURINOL 300 1 po qd No Longer 08/21/ [place] MG TABS Active 2009 [facility] VYTORIN 10-80 MG 1 po daily Active [facility] edical TABS Group AMLODIPINE 1 po daily Active Medical BESYLATE 10 MG Group TABS FLOMAX 0.4 MG 1 po daily Active [facility] adeola CAPS Group METOPROLOL 1 po bid Active Medical SUCCINATE 50 MG Group [id number] VYTORIN 10-80 MG 1 po daily Active [facility] edical TABS Group AMLODIPINE 1 po daily Active Medical BESYLATE 10 MG Group TABS BETAHISTINE one daily Active Medical DIHYDROCHLORIDE Group (BETAHISTINE HCL) AMLODIPINE 1 po daily Active Medical BESYLATE 10 MG Group TABS METOPROLOL 1 po bid Active Medical SUCCINATE 50 MG Group [id number] Allergies, Adverse Reactions, Alerts Substance Category Reaction Severity Reaction Status Date Comments S ource type Reported Cefuroxime Assertion Drug Active Axetil allergy Medical Group Immunizations Immunization Date Site Status Last Updated Comments Sour ce Given pneumococcal Left completed [facility] 13-valent vaccine 9 Del[facility] Gr oup influenza virus completed [facility] edical vaccine, 9 History: [facility] inactivated<sup>1 PHARMACY </sup> influenza virus Left completed [facility] edical vaccine, 8 Deltoid Group, inactivated [facility] [place] Results Order Name Results Value Reference Date Interpretation Comments Myrna rce Range CHEM PANEL Glucose Lvl 106 65 - 99 09/11 Result Medica l Comment: Group
Fasting reference interval

For someone without known diabetes, a glucose value
bet ween 100 and 125 mg/dL is consistent with
p rediabetes and should be confirmed with a
follow- up test.

Lab test performed by:
[facility]
[address]
[place] [address]
Alfredo Hurley CHEM PANEL BUN 20 7 - 25 09/11 Medical /2019 Group CHEM PANEL Creatinine 1.17 0.70 - 09/11 Result Medical Lvl 1. Comment: For Group patients >49 years of age, the reference limit
for Creatinine is approximately 13% higher for people
id entified as -Ameri can. CHEM PANEL eGFR 65 > OR = 60 09/11 Medical NON-AFR. mL/min/1.7 Group NIGERIEN 3m2 CHEM PANEL eGFR 75 > OR = 60 09/11 Med ical NIGERIEN mL/min/1.7 Group 3m2 CHEM PANEL B/C Ratio NOT 6 - 22 09/11 Medical APPLICABLE Group CHEM PANEL Sodium Lvl 141 135 - 146 09/11 Medic al Group CHEM PANEL Potassium 3.9 3.5 - 5.3 09/11 Medica l Lvl Group CHEM PANEL Chloride Lvl 102 98 - 110 09/11 Medi adeola Group CHEM PANEL CO2 28 20 - 32 09/11 Medical Group CHEM PANEL Calcium Lvl 10.1 8.6 - 10.3 09/11 Med ical Group HEMATOLOGY WBC X 10x3 10.1 3.8 - 10.8 09/11 Result [facility] adeola Comment: Group
Lab test performed by:
[facility]
[address]
[place] [address]
Alfredo Hurley HEMATOLOGY RBC X 10x6 4.80 4.20 - 05 Medical 5.80 /2019 Group HEMATOLOGY Hgb 14.7 13.2 - 09/11 Medical 17.1 Group HEMATOLOGY Hct 43.2 38.5 - 09/11 Medical 50.0 /2020 Group HEMATOLOGY MCV 90.0 80.0 - 05 Medical 100.0 2020 Group HEMATOLOGY MCH 30.6 27.0 - 05 Medical 33.0 2020 Group HEMATOLOGY MCHC 34.0 32.0 - 05/ Medical 36.0 /2020 Group HEMATOLOGY RDW 13.4 11.0 - 05 Medical 15.0 2020 Group HEMATOLOGY Platelet 202 140 - 400 05 Medical /2020 Group HEMATOLOGY MPV 12.2 7.5 - 12.5 09/11 Medical /2020 Group SPECIAL PSA 1.7 < OR = 4.0 09/11 Result Medical CHEMISTRY ng/mL Comment: The Group total PSA value from this assay system is
standard ized against the WHO standard. The test
result will be approximately 20% lower when compared
to the equimolar-sta ndardized total PSA (Lucy
Ana) . Comparison of serial PSA results should be
interpre emanuel with this fact in mind.

This test was performed using the Siemens
chemilum inescent method. Values obtained from
differen t assay methods cannot be used
inte rchangeably. PSA levels, regardless of
value, should not be interpreted as absolute
evidence of the presence or absence of disease.

Lab test performed by:
[facility]
[address] [place] [address]
[place] [address]
Alfredo Hurley URINE AND UA Mucus Rare /LPF None Seen 04/14 [facility] [place] STOOL /LPF /2014 [place] URINE AND UA Sq Epi Rare /LPF Few /LPF 04/14 [place] STOOL [place] URINE AND UA WBC 0-2 /HPF None Seen 04/14 [place] STOOL /HPF /2014 Land URINE AND UA Bacteria Occasional None Seen 04/14 [place] STOOL /HPF /HPF /2014 Land URINE AND UA RBC 0-2 /HPF 0 - 2 04/14 [place] STOOL [place] URINE AND UA Bili Negative Negative 04/14 [place] STOOL *NA* /2014 [place] (04/14/15 1:55 PM) URINE AND UA Blood Negative Negative 04/14 [place] STOOL (04/14/15 1:55 PM) Land URINE AND UA Ketones Negative Negative 04/14 [place] STOOL *NA* /2014 [place] (04/14/15 1:55 PM) URINE AND UA Glucose Negative Negative 04/14 [place] STOOL (04/14/15 1:55 PM) Land URINE AND UA Leuk Est Negative Negative 04/14 [place] STOOL (04/14/15 1:55 PM) Land URINE AND UA 0.2 0.1 - 1.0 04/14 [place] STOOL Urobilinogen /2014 [place] URINE AND UA Nitrite Negative Negative 04/14 [place] STOOL (04/14/15 1:55 PM) /2014 [facility] URINE AND UA Spec Grav <=1.005 <=1.030 04/14 [place] STOOL *NA* /2014 [place] (04/14/15 1:55 PM) URINE AND UA Color Yellow Yellow 04/14 [place] STOOL *NA* /2014 [place] (04/14/15 1:55 PM) URINE AND UA Turbidity Clear Clear 04/14 [place] STOOL (04/14/15 1:55 PM) /2014 [facility] URINE AND UA Protein Trace Negative 04/14 [place] STOOL *ABN* /2014 [place] (04/14/15 1:55 PM) URINE AND UA pH 7.0 5.0 - 8.0 04/14 [place] STOOL /2014 [facility] BLOOD BANK ABO/Rh O POS 04/14 [place] RESULTS [facility] BLOOD BANK Antibody Negative 04/14 [place] RESULTS Scrn (04/14/15 1:09 PM) Land CHEM PANEL B/C Ratio 16 6 - 25 04/14 Land CHEM PANEL Globulin 3.6 2.0 - 4.0 04/14 Land CHEM PANEL A/G Ratio 1.0 0.7 - 1.6 04/14 Land CHEM PANEL AGAP 9.7 10.0 - 04/14 [place] 20.0 Land CHEM PANEL Potassium 3.7 3.5 - 5.1 04/14 [place] Lvl [place] CHEM PANEL Sodium Lvl 142 135 - 145 04/14 [place] CHEM PANEL Creatinine 0.98 0.50 - 04/14 [place] Lvl 1.40 Land CHEM PANEL BUN 16 7 - 22 04/14 [place] CHEM PANEL Glucose Lvl 110 70 - 99 04/14 [place] CHEM PANEL eGFR 83 04/14 Comment: The [facility] eGFR is calculated using the CKD-EPI formula. In most young, healthy individuals the eGFR will be >90 mL/min/1.73m2 . The eGFR declines with age. An eGFR of 60-89 may be normal in some populations, particularly the elderly, for whom the CKD-EPI formula has not been extensively validated. Use of the eGFR is not recommended in the following populations:< br/>
Karuna viduals with unstable creatinine concentration s, including patients and those with serious co-morbid conditions.<b r/>
Patie nts with extremes in muscle mass or diet.

The data above are obtained from the National Kidney Disease Education Program (NKDEP) which additionally recommends that when the eGFR is used in patients with extremes of body mass index for purposes of drug dosing, the eGFR should be multiplied by the estimated BMI. CHEM PANEL Calcium Lvl 9.3 8.5 - 10.5 12 [facility] [place] CHEM PANEL Total 7.3 6.4 - 8.4 04/14 [place] Protein [place] CHEM PANEL ALT 37 0 - 65 04/14 [facility] [place] CHEM PANEL Albumin Lvl 3.7 3.5 - 5.0 04/14 [facility] [place] CHEM PANEL AST 27 0 - 37 04/14 [facility] [place] CHEM PANEL Alk Phos 126 39 - 136 04/14 [facility] [place] CHEM PANEL Bili Total 0.3 0.2 - 1.3 04/14 [facility] [place] CHEM PANEL Chloride Lvl 105 95 - 109 04/14 [place] CHEM PANEL CO2 31 24 - 32 04/14 [facility] [place] HEMATOLOGY PTT 28.0 22.9 - 04/14 [facility] [place] 35.8 /2015 [place] HEMATOLOGY PT 12.5 12.0 - 12 [facility] [place] 14.7 /2014 [place] HEMATOLOGY INR 0.90 0.85 - 04/14 [facility] [place] 1.17 /2014 [place] HEMATOLOGY Platelet 190 133 - 450 04/14 [facility] [place] HEMATOLOGY MPV 9.4 7.4 - 10.4 04/14 [facility] [place] HEMATOLOGY MCHC 32.9 32.0 - 04/14 [facility] [place] 36.0 /2015 [place] HEMATOLOGY MCH 28.7 27.0 - 12 MH [place] 31.0 /2015 [place] HEMATOLOGY RDW 15.6 11.5 - 12 [facility] [place] 14.5 /2014 [place] HEMATOLOGY Hgb 13.1 14.0 - 12 MH [place] 18.0 /2014 [place] HEMATOLOGY MCV 87.4 80.0 - 04/14 [place] 94.0 /2015 [place] HEMATOLOGY Hct 39.9 42.0 - 04/14 [place] 54.0 /2015 [place] HEMATOLOGY RBC 4.56 4.70 - 12 [place] 6.10 /2014 [place] HEMATOLOGY WBC 11.4 3.7 - 10.4 04/14 [place] HEMATOLOGY Eosinophils 0.1 0.0 - 0.5 04/14 [place] # /2014 [place] HEMATOLOGY Basophils # 0.0 0.0 - 0.2 04/14 MH [place] /2015 [place] HEMATOLOGY Monocytes # 0.5 0.0 - 0.8 04/14 [place] /2015 [place] HEMATOLOGY Segs-Bands # 9.9 1.5 - 8.1 04/14 MH [place] /2014 [place] HEMATOLOGY Lymphocytes 0.8 1.0 - 5.5 04/14 [place] # /2014 [place] HEMATOLOGY Eosinophils 1.2 0.0 - 4.0 04/14 [place] /2014 [place] HEMATOLOGY Monocytes 4.4 2.0 - 12.0 04/14 [place] HEMATOLOGY Basophils 0.0 0.0 - 1.0 04/14 [place] HEMATOLOGY Segs 87.0 45.0 - 04/14 [place] 75.0 /2015 [place] HEMATOLOGY Lymphocytes 7.4 20.0 - 04/14 [place] 40.0 /2015 [facility] LABORATORY Monocyte % 12.4 2.0 - 12.0 11 HI <sup>19</sup> S urgical /2014 Reference Specialty Lab: [facility], [address] [place] [address] LABORATORY Neutrophil % 70.5 45.0 - 11 <sup>15</sup> Peace rgical 75.0 /2015 Reference Specialty Lab: [facility], [address] [place] [address] LABORATORY Basophil % 0.4 0.0 - 1.0 03/07 <sup>23</sup> Peace rgical /2014 Reference Specialty Lab: [facility], [address] [place] [address] LABORATORY Neutrophil # 8.8 1.5 - 8.1 03/07 HI <sup>25</sup> Surgical /2014 Reference Specialty Lab: [facility], [address] [place] [address] LABORATORY Lymphocyte % 14.5 20.0 - 03/07 LOW <sup>17</sup> Peace rgical 40.0 /2015 Reference Specialty Lab: [facility], [address] [place] [address] LABORATORY Eosinophil # 2.2 0.0 - 4.0 03/07 <sup>31</sup> Surgical /2014 Reference Specialty Lab: [facility], [address] [place] [address] LABORATORY Lymphocyte # 1.8 1.0 - 5.5 03/07 <sup>27</sup> Surgical /2014 Reference Specialty Lab: [facility], [address] [place] [address] LABORATORY Basophil # 0.0 0.0 - 0.2 03/07 <sup>33</sup> Peace rgical Reference Specialty Lab: [facility], [address] [place] [address] LABORATORY Monocyte # 1.5 0.0 - 0.8 03/07 HI <sup>29</sup> Peace rgical Reference Specialty Lab: [facility], [address] [place] [address] LABORATORY Eosinophil % 0.3 0.0 - 0.5 03/07 <sup>21</sup> Surgical /2014 Reference Specialty Lab: [facility], [address] [place] [address] LABORATORY Hematocrit 37.8 42.0 - 03/07 LOW <sup>53</sup> Surg ical 54.0 Reference Specialty Lab: [facility], [address] [place] [address] LABORATORY White Blood 12.4 3.7 - 10.4 03/07 HI <sup>63</sup> Surgical Count /2014 Reference Specialty Lab: [facility], [address] [place] [address] LABORATORY Red Blood 4.22 4.70 - 03/07 LOW <sup>59</sup> Surgi adeola Cell Count 6.10 /2014 Reference Specialty Lab: [facility], [address] [place] [address] LABORATORY Hemoglobin 12.3 14.0 - 11 LOW <sup>55</sup> Surg ical 18.0 /2014 Reference Specialty Lab: [facility], [address] [place], [place] [address] LABORATORY RDW 14.0 11.5 - 03/07 <sup>11</sup> Surgica l 14.5 /2014 Reference Specialty Lab: [facility], [address] [place], [place] [address] LABORATORY Platelet 196 133 - 450 11 <sup>35</sup> Surg ical /2014 Reference Specialty Lab: [facility], [address] [place] [address] LABORATORY MCHC 32.7 32.0 - 03/07 <sup>9</sup>R Surgica l 36.0 /2014 eference Lab: Specialty [facility], [address] [place], [place] [address] LABORATORY MCV 89.4 80.0 - 03/07 <sup>37</sup> Surgica l 94.0 /2014 Reference Specialty Lab: [facility], [address] [place], [place] [address] LABORATORY MCH 29.2 27.0 - 03/07 <sup>7</sup>R Surgica l 31.0 /2014 eference Lab: Specialty [facility], [address] [place], [place] [address] LABORATORY MPV 9.9 7.4 - 10.4 03/07 <sup>13</sup> Surg ical /2014 Reference Specialty Lab: [facility], [address] [place], [place] [id number] LABORATORY Results Reported 03/07 Surgical (03/07/2015 04:00:00) /2014 [facility] LABORATORY Potassium 4.0 3.5 - 5.1 03/07 <sup>57</sup> Raphael gical Level /2014 Reference Specialty Lab: [facility], [address] [place], [place] [id number] LABORATORY Glucose Lvl 106 70 - 99 03/07 HI <sup>3</sup>R Raphael gical /2014 eference Lab: Specialty [facility], [address] [place] [address]
<peace p>4</sup>Resu lt Comment: Adult reference range values reflect the clinical guidelines
of the [place] [employer]. LABORATORY BUN 19 7 - 22 03/07 <sup>45</sup> Surgica l /2014 Reference Specialty Lab: [facility], [address] [place] [address] LABORATORY Creatinine 1.11 0.50 - 03/07 <sup>65</sup> Surg ical 1.40 /2014 Reference Specialty Lab: [facility], [address] [place] [address] LABORATORY Sodium Level 136 135 - 145 03/07 <sup>61</sup> Surgical /2014 Reference Specialty Lab: [facility], [address] [place] [address] LABORATORY Chloride 97 95 - 109 03/07 <sup>51</sup> Surgi adeola Level /2014 Reference Specialty Lab: [facility], [address] [place] [address] LABORATORY Carbon 32 24 - 32 03/07 <sup>49</sup> Surgica l Dioxide /2014 Reference Specialty Level Lab: [facility], [address] [place], [place] [address] LABORATORY AGAP 11.0 10.0 - 11 <sup>1</sup>R Surgica l 20.0 /2014 eference Lab: Specialty [facility], [address] [place] [address] LABORATORY Calcium 8.2 8.5 - 10.5 03/07 LOW <sup>47</sup> Surg ical Level /2014 Reference Specialty Lab: [facility], [address] [place] [address] LABORATORY eGFR 82 03/07 <sup>41</sup> Surgica l /2014 Reference Specialty Lab: [facility], [address] [place] [address]
<peace p>42</sup>Res ult Comment: The eGFR is calculated using the CKD-EPI formula. In most young, healthy
i ndividuals the eGFR will be >90 mL/min/1.73m2 . The eGFR declines with age. An
eGFR of 60-89 may be normal in some populations, particularly the elderly, for
whom the CKD-EPI formula has not been extensively validated. Use of the eGFR is
not recommended in the following populations:< br/>Individua ls with unstable creatinine concentration s, including
patients and those with serious co-morbid conditions.<b r/>Patients with extremes in muscle mass or diet.
The data above are obtained from the National Kidney Disease Education Program
( NKDEP) which additionally recommends that when the eGFR is used in patients
with extremes of body mass index for purposes of drug dosing, the eGFR should
be multiplied by the estimated BMI. LABORATORY Results Reported 03/07 Surgical (03/07/2015 04:00:00) [facility] LABORATORY Results Reported 03/06 Surgical (03/06/2015 03:55:00) [facility] LABORATORY PLT Morph Normal 03/06 <sup>40</sup> Surgi adeola Reference Specialty Lab: [facility], [address] [place] [address] LABORATORY RBC Morph Normal 03/06 <sup>39</sup> Surgi adeola /2014 Reference Specialty Lab: [facility], [facility] [place] [address] LABORATORY Monocyte # 1.4 0.0 - 0.8 03/06 HI <sup>30</sup> Peace rgical /2014 Reference Specialty Lab: [facility], [facility] [place] [address] LABORATORY Eosinophil % 0.0 0.0 - 0.5 03/06 <sup>22</sup> Surgical /2014 Reference Specialty Lab: [facility], [address] [place] [address] LABORATORY Neutrophil # 13.6 1.5 - 8.1 03/06 HI <sup>26</sup> Surgical /2014 Reference Specialty Lab: [facility], [address] [place] [address] LABORATORY Basophil % 0.1 0.0 - 1.0 03/06 <sup>24</sup> Peace rgical /2014 Reference Specialty Lab: [facility], [address] [place] [address] LABORATORY Eosinophil # 0.2 0.0 - 4.0 03/06 <sup>32</sup> Surgical /2014 Reference Specialty Lab: [facility], [address] [place] [address] LABORATORY Lymphocyte % 8.2 20.0 - 03/06 LOW <sup>18</sup> Peace rgical 40.0 Reference Specialty Lab: [facility], [address] [place] [address] LABORATORY Monocyte % 8.6 2.0 - 12.0 03/06 <sup>20</sup> S urgical Reference Specialty Lab: [facility], [address] [place] [address] LABORATORY Neutrophil % 82.9 45.0 - 03/06 HI <sup>16</sup> Peace rgical 75.0 Reference Specialty Lab: [facility], [address] [place] [address] LABORATORY Lymphocyte # 1.3 1.0 - 5.5 03/06 <sup>28</sup> Surgical /2014 Reference Specialty Lab: [facility], [address] [place] [address] LABORATORY Basophil # 0.0 0.0 - 0.2 03/06 <sup>34</sup> Peace rgical /2014 Reference Specialty Lab: [facility], [address] [place] [address] LABORATORY Results Reported 03/06 Surgical (03/06/2015 03:55:00) /2014 [facility] LABORATORY RDW 14.0 11.5 - 03/06 <sup>12</sup> Surgica l 14.5 Reference Specialty Lab: [facility], [address] [place] [address] LABORATORY Platelet 217 133 - 450 03/06 <sup>36</sup> Surg ical /2014 Reference Specialty Lab: [facility], [address] [place] [address] LABORATORY MPV 10.1 7.4 - 10.4 03/06 <sup>14</sup> Surg ical /2014 Reference Specialty Lab: [facility], [address] [place] [address] LABORATORY Hemoglobin 13.5 14.0 - 03/06 LOW <sup>56</sup> Surg ical 18.0 Reference Specialty Lab: [facility], [address] [place], [place] [address] LABORATORY White Blood 16.4 3.7 - 10.4 03/06 HI <sup>64</sup> Surgical Count /2014 Reference Specialty Lab: [facility], [address] [place], [place] [address] LABORATORY Red Blood 4.63 4.70 - 03/06 LOW <sup>60</sup> Surgi adeola Cell Count 6.10 Reference Specialty Lab: [facility], [address] [place], [place] [address] LABORATORY Hematocrit 42.5 42.0 - 03/06 <sup>54</sup> Surg ical 54.0 Reference Specialty Lab: [facility], [address] [place], [place] [address] LABORATORY MCV 91.8 80.0 - 03/06 <sup>38</sup> Surgica l 94.0 Reference Specialty Lab: [facility], [address] [place], [place] [address] LABORATORY MCH 29.1 27.0 - 11 <sup>8</sup>R Surgica l 31.0 /2014 eference Lab: Specialty [facility], [address] [place], [place] [id number] LABORATORY MCHC 31.7 32.0 - 03/06 LOW <sup>10</sup> Surgica l 36.0 /2014 Reference Specialty Lab: [facility], [address] [place], [place] [address] LABORATORY Results Reported 03/06 Surgical (03/06/2015 03:55:00) /2014 [facility] LABORATORY Creatinine 1.05 0.50 - 03/06 <sup>66</sup> Surg ical 1.40 /2014 Reference Specialty Lab: [facility], [address] [place], [place] [address] LABORATORY BUN 19 7 - 22 03/06 <sup>46</sup> Surgica l /2014 Reference Specialty Lab: [facility], [address] [place] [address] LABORATORY Glucose Lvl 136 70 - 99 03/06 HI <sup>5</sup>R Raphael gical /2014 eference Lab: Specialty [facility], [address] [place] [address]
<peace p>6</sup>Resu lt Comment: Adult reference range values reflect the clinical guidelines
of the [place] [employer]. LABORATORY Chloride 99 95 - 109 03/06 <sup>52</sup> Surgi adeola Level /2014 Reference Specialty Lab: [facility], [address] [place] [address] LABORATORY Carbon 29 24 - 32 03/06 <sup>50</sup> Surgica l Dioxide /2014 Reference Specialty Level Lab: [facility], [address] [place] [address] LABORATORY Sodium Level 138 135 - 145 03/06 <sup>62</sup> Surgical /2014 Reference Specialty Lab: [facility], [address] [place] [address] LABORATORY Potassium 4.1 3.5 - 5.1 03/06 <sup>58</sup> Raphael gical Level /2015 Reference Specialty Lab: [facility], [address] [place] [address] LABORATORY Calcium 8.5 8.5 - 10.5 03/06 <sup>48</sup> Surg ical Level /2015 Reference Specialty Lab: [facility], [address] [place] [address] LABORATORY AGAP 14.1 10.0 - 11 <sup>2</sup>R Surgica l 20.0 /2015 eference Lab: Specialty [facility], [address] [place] [address] LABORATORY eGFR 88 03/06 <sup>43</sup> Surgica l /2015 Reference Specialty Lab: [facility], [address] [place], [place] [address]
<peace p>44</sup>Res ult Comment: The eGFR is calculated using the CKD-EPI formula. In most young, healthy
i ndividuals the eGFR will be >90 mL/min/1.73m2 . The eGFR declines with age. An
eGFR of 60-89 may be normal in some populations, particularly the elderly, for
whom the CKD-EPI formula has not been extensively validated. Use of the eGFR is
not recommended in the following populations:< br/>Individua ls with unstable creatinine concentration s, including
patients and those with serious co-morbid conditions.<b r/>Patients with extremes in muscle mass or diet.
The data above are obtained from the National Kidney Disease Education Program
( NKDEP) which additionally recommends that when the eGFR is used in patients
with extremes of body mass index for purposes of drug dosing, the eGFR should
be multiplied by the estimated BMI. Chemistry CHOLESTEROL 217 120 - 200 10/23 Medic al Group Chemistry HDL 46 26 - 62 10/23 Group Chemistry LDL 101 0 - 130 10/23 Group Chemistry ALBUMIN 4.5 3.5 - 5.0 10/23 Group Chemistry ALK PHOS 87 32 - 96 10/23 Group Chemistry SGOT (AST) 43 10 - 42 10/23 Group Chemistry SGPT (ALT) 37 11 - 43 10/23 Group Chemistry CREATININE 1.11 0.46 - 08/15 Medical 1.20 Group Chemistry CHOLESTEROL 270 120 - 200 08/07 Group Chemistry HDL 41 26 - 62 08/07 Group Chemistry LDL 190 0 - 130 08/07 Group Chemistry ALBUMIN 4.1 3.5 - 5.0 08/07 Group Chemistry ALK PHOS 94 32 - 96 08/07 Group Chemistry SGOT (AST) 43 10 - 42 08/07 Group Chemistry SGPT (ALT) 71 11 - 43 08/07 Group Chemistry SODIUM 140 135 - 143 07/10 Group Chemistry POTASSIUM 3.6 3.3 - 5.0 07/10 Group Chemistry ALBUMIN 4.5 3.5 - 5.0 07/10 Group Chemistry CALCIUM 9.4 8.6 - 9.8 07/10 Group Chemistry CREATININE 1.51 0.46 - 07/10 Medical 1.20 Group Chemistry BUN 20 10 - 22 07/10 Group Chemistry ALK PHOS 104 32 - 96 07/10 Group Chemistry SGOT (AST) 164 10 - 07/10 Group Chemistry SGPT (ALT) 148 11 - 43 07/10 Group Chemistry CHOLESTEROL 407 120 - 200 07/10 Group Chemistry HDL 52 26 - 62 07/10 Group Chemistry LDL 284 0 - 130 07/10 Group Chemistry URIC ACID 10.6 4.0 - 8.4 07/10 Group Chemistry TSH 2.30 0.34 - 07/10 Medical 5.60 Group Chemistry T4, FREE 0.95 0.61 - 07/10 Medical 1.12 Group Hematology HGB 16.6 12.3 - 07/10 Medical 17.3 /2015 Group Hematology HCT 50.2 36.7 - 07/10 Medical 50.5 /2014 Group Chemistry SODIUM 142 135 - 143 01/22 Group Chemistry POTASSIUM 3.4 3.3 - 5.0 01/22 Group Chemistry SODIUM 142 135 - 143 01/22 Group Chemistry POTASSIUM 3.4 3.3 - 5.0 01/22 Group Chemistry ALBUMIN 4.2 3.5 - 5.0 01/22 Group Chemistry CALCIUM 9.5 8.6 - 9.8 01/22 Group Chemistry CREATININE 0.98 0.46 - 01/22 Medical 1.20 Group Chemistry BUN 19 10 - 01/22 Group Chemistry ALK PHOS 87 32 - 96 01/22 Group Chemistry SGOT (AST) 37 10 - 42 01/22 Group Chemistry SGPT (ALT) 43 11 - 43 01/22 Group Chemistry CHOLESTEROL 188 120 - 200 01/22 Medic Group Chemistry HDL 45 26 - 62 01/22 Group Chemistry LDL 111 0 - 130 01/22 Group Chemistry URIC ACID 5.7 4.0 - 8.4 01/22 Group Chemistry TSH 1.28 0.34 - 01/22 Medical 5.60 Group Hematology HGB 14.2 11.8 - 01/22 Medical 17. Group Hematology HCT 42.8 41.0 - 01/22 Medical 50.0 Group Chemistry PSA 2.2 07/23 Group Chemistry PSA 2.2 07/23 Group Chemistry PSA 2.2 07/23 Group Chemistry PSA 3.12 04/13 Group Chemistry PSA 3.12 04/13 Medical Group Chemistry PSA 3.12 04/13 Group Chemistry PSA 5.23 06/02 Group Chemistry PSA 5.23 06/02 Group Chemistry PSA 5.23 06/02 Group Chemistry PSA 3.09 03/14 Group Chemistry PSA 3.09 03/14 Group Chemistry PSA 3.09 03/14 Medical /2009 Group Pathology Reports No Data Provided for This Section Diagnostic Reports Report Value Date Source Abdomen complete US Study: Abdomen complete US 10/04/2018 10:06 CD T 10/04/2018 [facility] Clinical Indication: - abnormal liver enzymes; Comparison: 04/04/2015, 04/05/2018 TECHNIQUE: Grayscale and limited color sonographic evaluation of the abdomen was performed with standard technique. FINDINGS: LIVER: The liver is borderline size measuring 18.0 cm with increased parenchyma echo texture. BILE DUCTS: The intrahepatic and extrahe patic bile ducts are not dilated with the common bile duct measuring 5 mm. The distal common bile duct is not well seen. GALLBLADDER: There are no gallstones, gal lbladder sludge, pericholecystic fluid or wall thickening. PANCREAS: The visualized pancreas appears unremarkable.. SPLEEN: The spleen is unremarkable a nd measures 10.8 cm. There is an indeterminate hypoechoic area measuring 2.3 x 1.6 x 2.4 cm near the spleen. KIDNEY: The right kidney measures 10.8 cm. The left kidney measures 11.3 cm. There is normal renal contou r and morphology, with normal parenchymal echotexture. There is no hydronephrosis. AORTA AND INFERIOR VENA CAVA: Aortic atherosclerosis with ectasia of the abdominal aorta measuring up to 2.6 cm. Distal abdominal aorta was not well visualized.. ASCITES: There is no right abdominal ascites. IMPRESSION: 1. No acute sonographic findings. 2. Hepatic steatosis 3. Indeterminate hypoechoic structure near the spleen. Recommend further assessment with abdominal CT with contrast. SL: [id number] Abdomen Aortic EXAM: Abdomen Aortic Aneurysm (AAA) US 8 OPID Oneco Aneurysm (AAA) US HISTORY: - I71.4 Abdomin al aortic aneurysm, without rupture COMPARISON: ct 04/14/2015 Discussion: Multiple sagittal and axial images were obtained of the abdominal aorta. No significant amount of atherosclerotic plaque identified. The measurements of the abdo ashley aorta at the appropriate landmarks are the following: Proximal aorta: 2.9 cm Mid aorta: 2.8 cm Distal aorta: 3.6 cm Right common iliac artery: 1.5 cm Left common iliac artery: 1.5 cm IMPRESSION: Distal abdominal aortic aneurysm measures 3.6 cm. AAA (abdominal aortic aneu rysm) management based on max aortic diameter (per Society of Vascular Surgeons, 2009): a. 2.6-2.9 cm: Follow up every 5 years. b. 3-3.4 cm: Follow up every 3 years. c. 3.5-3.9 cm: Follow up every 1 year. d. 4-4.4 cm: Follow up every 1 year and vascula r consultation. e. 4.5-5.4 cm: Follow up every 6 months and vas cular consultation. f. >/=5.5 cm: Vascular surgery consultation. Chest 2 views DX Study: Chest 2 views DX 12/21/2017 [facility] Clinical Indication: - Cough Comparison: Chest x-ray from 03/22/2017 FINDINGS: The cardiac silhou ette is normal in size. The lungs are clear and without consolidation or congestion. Asymmetric elevation of the right hemidiaphragm is seen. No pleural effusion or pneumotho rax is seen. The osseous structures are unremar kable. IMPRESSION: No acute cardiopulmonary disease. SL: [id number] Chest 2 views DX Exam: Chest 2 views DX 03/22/2017 [facility] Clinical Indication: - cough x 2 weeks Comparison: Chest radiograph 10/20/2015 FINDINGS: Frontal and lateral views of the chest are perfo rmed. Lungs appear clear without i nfiltrate or mass. No pleural effusion or pneumothorax. Cardiomediastinal silhouette is within normal limits. Pulmonary vascularity is within normal limits. No acute osseous abnormality identified. IMPRESSION: No acute cardiopulmonary abnormality. SL: [id number] Abdomen complete US EXAM: 09/30/2016 IBRAHIMA Cope Abdomen ultrasound. CLINICAL HX: I71.4 Abdominal aortic ane urysm, without rupture - I71.4 Abdominal aortic aneurysm, without rupture. Age: 60 years. Gender: Male. TECHNIQUE: Grayscale and Doppler sonogram of the abdomen. COMPARISON: CT abdomen and pelvis: 04/14/2015. FINDINGS: Midline structures: -- Pancreas: Visualized portion is unremarkable . -- Aorta: Atherosclerosis. Measures 2.5 cm proximally and 2.4 cm at the midportion. The distal abdominal aorta and aortoiliac junction (site of the prior aortoiliac bypass graft) are not well evaluated. -- IVC: Visualized portion is unremarkable. Liver: -- Parenchyma: Diffuse increased echogenicity. -- Length: 16.6 cm. -- Other: None. Main portal vein: -- Diameter: 1 cm. -- Flow: Normal directional flow. Gallbladder: -- Intraluminal gallstones: Negative. -- Wall: No thickening. -- Sonographic Conway sign: Negative. -- Other: None. Common bile duct: -- Diameter: 0.5 cm. Right kidney: -- Length: 10.9 cm. -- Hydronephrosis: Negative. -- Other: None. Left kidney: -- Length: 11.3 cm. -- Hydronephrosis: Negative. -- Other: None. Spleen: -- Measures 11.2 cm. -- Other: 1.7 cm cystic lesi on which is indeterminate but statistically represents a pseudocyst. Other: None. IMPRESSION: 1. Enlarged, echogenic liver consistent with fat ty infiltration. 2. Small splenic cystic lesion which probably re presents a pseudocyst. 3. Aortic atherosclerosis. H owever, the distal abdominal aorta and aortoiliac junction (site of the prior aortoiliac bypass graft) are not well evaluated. If evaluation of this remains desired (given th e clinical history), consider evaluation with CT A of the abdomen and pelvis. Chest 2 views [facility]. INDICATION: Preoperative exam. COMPARISON: Chest x-ray: February 07, 2015. FINDINGS: Support apparatus: None. Cardiac silhouette: Unremarkable. Shirley: Unremarkable. Lobar consolidation: Negative. Pleural effusion: Negative. Pneumothorax: Negative. Other: Negative. Bones: Unremarkable. Other: None. IMPRESSION: 1. No acute cardiopulmonary process. Calcaneus series DX EXAM: 06/24/2015 [facility] 2 view(s) of the right calcaneus. INDICATION: Right heel pain after kicking a board. COMPARISON: None. FINDINGS: No acute fracture or dislocation. No plantar calcaneal enthesophyte. No large soft tissue swelling. IMPRESSION: 1. No acute fracture. Knee 3 views DX Right knee x-ray 3 views 05/14/2015 Jimi Barber Clinical History: 59 joint male status post a fa ll and now with knee pain. Comparison: None A moderate knee effusion is present and swelling of the prepatellar soft tissues noted. The medial compartment joint space is mild narrow suggesting cartilage loss and osteoarthritis. The lateral and patellofemor al spaces are maintained. There are no osteophytes. No acute fracture or loose body seen. Normal mineralization is seen. Impression: Moderate right knee effusion and swelling of the prepatellar soft tissues. No evidence for an acute bone injury. Abdomen/Pelvis wo IV STUDY: Abdomen/Pelvis wo contrast CT 2014 [facility] contrast CT COMPARISON: CTA dated 04/14/15 TECHNIQUE: Multiple axial C T images of the abdomen and pelvis were obtained without intravenous contrast administration. Oral contrast was not administered. Coronal and sagittal reconstructions were also obtained. DLP: 1123 mgy-cm. FINDINGS: ABDOMEN: The liver, gallbladder, sple en, adrenal glands, kidneys, pancreas demonstrate no significant abnormalities. Distal esophagus, stomach, a nd small bowel including the appendix demonstrate no significant abnormalities. Colonic diverticulosis is identified. PELVIS: The prostate is enlarged and the bladder contains no filling defects. The patient is status post aortobifem-bypass graft. The patient is status post L4-S1 lumbar fusion. No intraperitoneal free air or free fluid is seen. No retroperitoneal lymphaden opathy is noted. IMPRESSION: 1. Acute uncomplicated sigm oid diverticulitis. I would also recommend an outpatient colonoscopy once acute inflammation resolves to exclude underlying malignancy. 2. Prostatomegaly. Abdomen/Pelvis CTA Clinical history: Abdominal pain, acute. 04/01 [employer] Sex: M. : 1955. Technique: Axial scans throu gh the abdomen with intravenous contrast using 100 cc of omnipaque 300 CTA including multiplanar computer reformations. Total Dose Length Product: 1296. Findings: There is mild atheromatous p laque throughout the aorta. Aorta measures 2.6 cm at the level of the diaphragm hiatus, 2.7 cm at the level of the celiac axis, 2.1 cm at the level of the superior mesenteric artery, 2.3 cm at the level of the renal arteries, 2.5 cm in the infrarenal segment. There is an aortico iliac graft. There is dense calcification in the [place] iliac arteries. No dissection or retroperitoneal fluid. Liver is fatty, measures 21.5 cm. No mass. Spleen is 9.6 cm. There is a 5 mm cyst in the an terior spleen. Gallbladder is normal. No biliary dilatation. Pancreas is normal. No adrenal mass. Bilateral kidneys appear normal. No evidence for mass or hydronephrosis.. Extensive colonic diverticul osis. There may be fat stranding around the sigmoid. This is seen on the exit slices of the scan volume and the sigmoid is otherwise not fully evaluated. No free fluid. Lung bases are clear. Skeletal structures show laminectomy and fusion L4-L5 and L5-S1. Impression: 1. Enlarged fatty liver. 2. Atherosclerotic aorta and patent aortico deb c graft. 3. Possible diverticulitis incompletely evaluate d. Chest 2 views DX CLINICAL HISTORY: Pre-op for spine surgery. 12/2014 [facility] : 1955. TECHNIQUE: PA and lateral views of the chest. Heart size is normal. No acute consolidation. Right diaphragm eventrat ion noted. No pleural effusion. IMPRESSION: 1. No active disease in the chest. Wrist 2 views DX EXAM: Wrist AP 01/31/2015 [facility] nn HISTORY: idiopathic gout multiple sites COMPARISON: None Two views of the right wrist. FINDINGS: No erosion or soft tissue swelling is seen. The joint spaces are maintained. No acute fracture. Alignment is normal. Remote ulnar styloid fracture noted. IMPRESSION: No acute abnormality. Spine lumbar wo Examination: Spine lumbar wo contrast MRI 01/02 [facility] contrast MRI History: lower back pain DIAGNOSIS: 1. 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 2. There is a subtle left-si ded pars defect on the left at L4 also associated with bilateral pars stress reaction. The findings result in moderate to moderately high-grade central canal and neuroforaminal stenosis at L4-L5. 3. Other extradural findings as discussed. TECHNIQUE: Lumbar MRI was c ompleted without contrast in axial and sagittal planes with T1, T2 FSE and STIR pulse parameters. DISCUSSION: Bone and Marrow Assessment : No evidence of a destructive process or spondylo-discitis Overall Disc Assessment: Mild multilevel disc desiccation L1/2: Minimal annular bulging but no signific ant extradural disease L 2/3: Mild annular bulge with mild superior facet enlargement resulting in mild bilateral neuroforaminal stenosis. The central canal remains relatively patent. L 3/4: Mild degenerative annular bulge with minimal desiccation. No significant canal or foraminal stenosis L4/5: 2 mm of anterolisth esis of L4 on L5 associated with a moderate concentric degenerative annular bulge, bilateral ligamentum flavum and superior facet enlargement, resulting in moderately high-gr sae central canal , and moderate bilateral neuro foraminal stenosis. Additionally, as seen on STI R images is increase in signal within the pars interarticularis and lamina of L4 bilaterally, representing stress reaction. On image 28, series 108, an axial T2 study, there is a vague hypointense line running through the pars and articularis on the left of L5 representing spondylolysis. L5/S1: Studies through th e lumbosacral level demonstrate a moderate degenerative annular bulge with a vacuum disc finding within the central disc. There is moderate bilateral facet enlargement and ligamentum flavum hypertrop hy with a chronic spondylitic pars defect with bone sclerosis of the posterior elements on the left associated with high signal on T2 studies representing continued edema or stress reaction. (Image 34, series 108) The findings at the lumbosac ral level results in fairly high-grade central canal and neuroforaminal stenosis bilaterally. Other: No evidence of spondylo-discitis DONATO Wallace Jr., MD Neuroradiology Consultation Notes No Data Provided for This Section Discharge Summaries No Data Provided for This Section History and Physicals No Data Provided for This Section Vital Signs Vital Sign Value Date Comments Source Systolic (mm Hg) 107 10/17/2019 [facility] Diastolic (mm Hg) 67 10/17/2019 [facility] Heart Rate 67 10/17/2019 [facility] Height 177.8 cm 10/17/2019 [facility] Weight 97.727 10/17/2019 [facility] BMI Calculated 30.91 10/17/2019 [facility] Height 177.8 cm 09/12/2019 [facility] Weight 98.182 09/12/2019 [facility] BMI Calculated 31.06 09/12/2019 [facility] Height 177.8 cm 05/17/2019 [facility] Systolic (mm Hg) 120 05/17/2019 [facility] Diastolic (mm Hg) 71 05/17/2019 [facility] Heart Rate 74 05/17/2019 [facility] Weight 99.909 05/17/2019 [facility] BMI Calculated 31.6 05/17/2019 [facility] Systolic (mm Hg) 117 01/19/2019 [facility] Diastolic (mm Hg) 68 01/19/2019 [facility] Heart Rate 71 01/19/2019 [facility] Weight 101.364 01/19/2019 [facility] Respitory Rate 17 11/09/2018 [facility] Temperature Oral (F) 98.9 F 11/09/2018 [facility] Systolic (mm Hg) 120 11/09/2018 [facility] Diastolic (mm Hg) 70 11/09/2018 [facility] Heart Rate 80 11/09/2018 [facility] Weight 99.545 11/09/2018 [facility] Height 177.8 cm 11/09/2018 [facility] BMI Calculated 31.49 11/09/2018 [facility] BMI Calculated 25.17 09/18/2018 [facility] Height 200.66 cm 09/18/2018 [facility] Weight 101.364 09/18/2018 [facility] Height 177.8 cm 09/04/2018 [facility] Heart Rate 75 09/04/2018 [facility] Systolic (mm Hg) 116 09/04/2018 [facility] Diastolic (mm Hg) 68 09/04/2018 [facility] Weight 103.636 09/04/2018 [facility] Temperature Oral (F) 97.8 F 09/04/2018 [facility] BMI Calculated 32.78 09/04/2018 [facility] Weight 102.727 05/18/2018 [facility] BMI Calculated 32.5 05/18/2018 [facility] Height 177.8 cm 05/18/2018 [facility] Systolic (mm Hg) 132 05/18/2018 [facility] Diastolic (mm Hg) 77 05/18/2018 [facility] Heart Rate 78 05/18/2018 [facility] Systolic (mm Hg) 122 04/26/2018 [facility] Diastolic (mm Hg) 80 04/26/2018 [facility] Heart Rate 80 04/26/2018 [facility] Respitory Rate 15 04/26/2018 [facility] Temperature Oral (F) 97.9 F 04/26/2018 [facility] Weight 104.091 04/26/2018 [facility] Weight 105.511 03/28/2018 [facility] BMI Calculated 33.38 03/28/2018 [facility] Height 177.8 cm 03/28/2018 [facility] Heart Rate 74 03/28/2018 [facility] Systolic (mm Hg) 143 03/28/2018 [facility] Diastolic (mm Hg) 84 03/28/2018 [facility] Weight 104.091 03/07/2018 [facility] BMI Calculated 32.93 03/07/2018 [facility] Height 177.8 cm 03/07/2018 [facility] Heart Rate 76 03/07/2018 [facility] Systolic (mm Hg) 126 03/07/2018 [facility] Diastolic (mm Hg) 79 03/07/2018 [facility] Weight 104.545 03/07/2018 [facility] BMI Calculated 33.07 03/07/2018 [facility] Height 177.8 cm 03/07/2018 [facility] Heart Rate 83 03/07/2018 [facility] Temperature Oral (F) 97.9 F 03/07/2018 [facility] Systolic (mm Hg) 135 03/07/2018 [facility] Diastolic (mm Hg) 77 03/07/2018 [facility] Height 177.8 cm 01/18/2018 [facility] BMI Calculated 32.8 01/18/2018 [facility] Heart Rate 72 01/18/2018 [facility] Systolic (mm Hg) 123 01/18/2018 [facility] Diastolic (mm Hg) 78 01/18/2018 [facility] Weight 103.693 01/18/2018 [facility] Weight 105.966 01/03/2018 [facility] Systolic (mm Hg) 144 01/03/2018 [facility] Diastolic (mm Hg) 80 01/03/2018 [facility] Heart Rate 87 01/03/2018 [facility] Height 177.8 cm 12/21/2017 [facility] BMI Calculated 32.98 12/21/2017 [facility] Weight 104.261 12/21/2017 [facility] Systolic (mm Hg) 120 12/21/2017 [facility] Diastolic (mm Hg) 74 12/21/2017 [facility] Heart Rate 89 12/21/2017 [facility] Weight 102.784 12/13/2017 [facility] BMI Calculated 32.51 12/13/2017 [facility] Height 177.8 cm 12/13/2017 [facility] Heart Rate 76 12/13/2017 [facility] Systolic (mm Hg) 122 12/13/2017 [facility] Diastolic (mm Hg) 75 12/13/2017 [facility] BMI Calculated 32.37 11/10/2017 [facility] Weight 102.33 11/10/2017 [facility] Height 177.8 cm 11/10/2017 [facility] Systolic (mm Hg) 124 11/10/2017 [facility] Diastolic (mm Hg) 76 11/10/2017 [facility] Heart Rate 81 11/10/2017 [facility] Height 177.8 cm 09/08/2017 [facility] BMI Calculated 31.63 09/08/2017 [facility] Weight 100 09/08/2017 [facility] Heart Rate 78 09/08/2017 [facility] Systolic (mm Hg) 120 09/08/2017 [facility] Diastolic (mm Hg) 76 09/08/2017 [facility] Weight 101.989 07/27/2017 [facility] BMI Calculated 32.26 07/27/2017 [facility] Heart Rate 77 07/27/2017 [facility] Systolic (mm Hg) 111 07/27/2017 [facility] Diastolic (mm Hg) 73 07/27/2017 [facility] Height 177.8 cm 07/27/2017 [facility] BMI Calculated 32.1 06/16/2017 [facility] Height 177.8 cm 06/16/2017 [facility] Weight 101.477 06/16/2017 [facility] Systolic (mm Hg) 133 06/16/2017 [facility] Diastolic (mm Hg) 82 06/16/2017 [facility] Heart Rate 74 06/16/2017 [facility] BMI Calculated 32.37 04/14/2017 [facility] Weight 102.33 04/14/2017 [facility] Systolic (mm Hg) 117 04/14/2017 [facility] Diastolic (mm Hg) 67 04/14/2017 [facility] Heart Rate 72 04/14/2017 [facility] Height 177.8 cm 04/14/2017 [facility] Weight 103.75 03/22/2017 [facility] Systolic (mm Hg) 132 03/22/2017 [facility] Diastolic (mm Hg) 72 03/22/2017 [facility] Respitory Rate 16 03/22/2017 [facility] Heart Rate 80 03/22/2017 [facility] Systolic (mm Hg) 139 04/14/2015 [place] Diastolic (mm Hg) 89 04/14/2015 [place] Respitory Rate 18 04/14/2015 [facility] Heart Rate 67 04/14/2015 [facility] Temperature Oral (F) 98.1 F 04/14/2015 [place] Systolic (mm Hg) 144 04/14/2015 [place] Diastolic (mm Hg) 90 04/14/2015 [place] Respitory Rate 20 04/14/2015 [facility] Heart Rate 88 04/14/2015 [facility] Heart Rate 70 04/14/2015 [facility] Respitory Rate 18 04/14/2015 [facility] Systolic (mm Hg) 141 04/14/2015 [place] Diastolic (mm Hg) 85 04/14/2015 [place] Temperature Oral (F) 98.2 F 04/14/2015 [place] Weight 97.455 04/14/2015 [facility] Systolic (mm Hg) 114/60 03/07/[address] [facility] [place] Temperature Oral (F) 36.7 [place] [facility] [place] Heart Rate 81 03/07/2015 [facility] [place] Respitory Rate 18 03/07/2015 [facility] [place] Systolic (mm Hg) 114/60 03/07/[address] [facility] [place] Respitory Rate 18 03/07/2015 Surgical [facility] [place] Systolic (mm Hg) 133/75 03/07/2015 [facility] [place] Heart Rate 79 03/07/2015 Surgical [facility] [place] Temperature Oral (F) 36.7 [place] 03/07/[facility] [place] Respitory Rate 18 03/07/2015 [facility] [place] Heart Rate 70 03/07/2015 [facility] [place] Temperature Oral (F) 36.4 [place] [facility] Temperature Oral (F) 36.1 M[place]le 03/05/[facility] [place] Weight 32 03/05/2015 [facility] [place] Weight 101.6 03/05/2015 [facility] [place] Height 177.8 cm 03/05/2015 [facility] Land Peripheral Pulse Rate 73 03/05/2015 Surgic al Specialty [facility] [place] Height 177.8 cm 03/03/2015 [facility] [place] Weight 32.14 03/03/2015 [facility] [place] [facility] [place] Weight 101.6 03/03/2015 [facility] [place] Peripheral Pulse Rate 68 03/03/2015 [facility] Weight 230 12/05/2014 [facility] Systolic (mm Hg) 137 12/05/2014 [facility] Diastolic (mm Hg) 84 12/05/2014 [facility] Heart Rate 72 12/05/2014 [facility] Weight 234 10/31/2014 [facility] Temperature Oral (F) 98 F 10/31/2014 [facility] Heart Rate 74 10/31/2014 [facility] Systolic (mm Hg) 136 10/31/2014 [facility] Diastolic (mm Hg) 84 10/31/2014 [facility] Weight 235 10/07/2014 [facility] Systolic (mm Hg) 130 10/07/2014 [facility] Diastolic (mm Hg) 80 10/07/2014 [facility] Heart Rate 80 10/07/2014 [facility] Respitory Rate 12 10/07/2014 [facility] Temperature Oral (F) 98.2 F 10/07/2014 [facility] Weight 231 08/27/2014 [facility] Systolic (mm Hg) 130 08/27/2014 [facility] Diastolic (mm Hg) 86 08/27/2014 [facility] Heart Rate 78 08/27/2014 [facility] Respitory Rate 12 08/27/2014 [facility] Temperature Oral (F) 98.0 F 08/27/2014 [facility] Weight 233 08/23/2014 [facility] Temperature Oral (F) 98 F 08/23/2014 [facility] Heart Rate 74 08/23/2014 [facility] Systolic (mm Hg) 153 08/23/2014 [facility] Diastolic (mm Hg) 87 08/23/2014 [facility] Weight 230.1 08/14/2014 [facility] Temperature Oral (F) 98.6 F 08/14/2014 [facility] Respitory Rate 24 08/14/2014 [facility] Heart Rate 81 08/14/2014 [facility] Systolic (mm Hg) 153 08/14/2014 [facility] Diastolic (mm Hg) 83 08/14/2014 [facility] Weight 224.8 07/31/2014 [facility] Temperature Oral (F) 98.1 F 07/31/2014 [facility] Respitory Rate 24 07/31/2014 [facility] Heart Rate 77 07/31/2014 [facility] Systolic (mm Hg) 107 07/31/2014 [facility] Diastolic (mm Hg) 73 07/31/2014 [facility] Weight 232 07/26/2014 [facility] Temperature Oral (F) 98 F 07/26/2014 [facility] Heart Rate 76 07/26/2014 [facility] Systolic (mm Hg) 134 07/26/2014 [facility] Diastolic (mm Hg) 79 07/26/2014 [facility] Weight 240 07/10/2014 [facility] Systolic (mm Hg) 130 07/10/2014 [facility] Diastolic (mm Hg) 86 07/10/2014 [facility] Heart Rate 112 07/10/2014 [facility] Respitory Rate 12 07/10/2014 [facility] Temperature Oral (F) 98.3 F 07/10/2014 [facility] Weight 240 06/21/2014 [facility] Temperature Oral (F) 98 F 06/21/2014 [facility] Heart Rate 71 06/21/2014 [facility] Systolic (mm Hg) 141 06/21/2014 [facility] Diastolic (mm Hg) 81 06/21/2014 [facility] Weight 233 01/22/2014 [facility] Heart Rate 60 01/22/2014 [facility] Systolic (mm Hg) 140 01/22/2014 [facility] Diastolic (mm Hg) 84 01/22/2014 [facility] Weight 231 12/20/2013 [facility] Temperature Oral (F) 98 F 12/20/2013 [facility] Heart Rate 68 12/20/2013 [facility] Systolic (mm Hg) 130 12/20/2013 [facility] Diastolic (mm Hg) 70 12/20/2013 [facility] Weight 226 09/27/2013 [facility] Heart Rate 80 09/27/2013 [facility] Systolic (mm Hg) 130 09/27/2013 [facility] Diastolic (mm Hg) 70 09/27/2013 [facility] Weight 234 09/25/2013 [facility] Respitory Rate 18 09/25/2013 [facility] Systolic (mm Hg) 150 09/25/2013 [facility] Diastolic (mm Hg) 82 09/25/2013 [facility] Heart Rate 88 09/25/2013 [facility] Weight 222 07/16/2013 [facility] Temperature Oral (F) 98.3 F 07/16/2013 [facility] Heart Rate 72 07/16/2013 [facility] Systolic (mm Hg) 120 07/16/2013 [facility] Diastolic (mm Hg) 60 07/16/2013 [facility] Weight 227 07/12/2013 [facility] Temperature Oral (F) 98.8 F 07/12/2013 [facility] Respitory Rate 20 07/12/2013 [facility] Heart Rate 80 07/12/2013 [facility] Systolic (mm Hg) 150 07/12/2013 [facility] Diastolic (mm Hg) 82 07/12/2013 [facility] Systolic (mm Hg) 151 06/08/2013 [facility] Diastolic (mm Hg) 91 06/08/2013 [facility] Heart Rate 84 06/08/2013 [facility] Weight 228 04/19/2013 [facility] Heart Rate 68 04/19/2013 [facility] Systolic (mm Hg) 140 04/19/2013 [facility] Diastolic (mm Hg) 80 04/19/2013 [facility] Weight 222.8 03/22/2013 [facility] Systolic (mm Hg) 138 03/22/2013 [facility] Diastolic (mm Hg) 78 03/22/2013 [facility] Heart Rate 82 03/22/2013 [facility] Weight 227 02/28/2013 [facility] Heart Rate 64 02/28/2013 [facility] Systolic (mm Hg) 130 02/28/2013 [facility] Diastolic (mm Hg) 70 02/28/2013 [facility] Weight 226.4 02/22/2013 [facility] Respitory Rate 18 02/22/2013 [facility] Systolic (mm Hg) 180 02/22/2013 [facility] Diastolic (mm Hg) 110 02/22/2013 [facility] Heart Rate 88 02/22/2013 [facility] Height 70 02/16/2013 [facility] Weight 224 02/16/2013 [facility] Systolic (mm Hg) 152 02/16/2013 [facility] Diastolic (mm Hg) 92 02/16/2013 [facility] Heart Rate 80 02/16/2013 [facility] Weight 224 02/14/2013 [facility] Heart Rate 68 02/14/2013 [facility] Systolic (mm Hg) 150 02/14/2013 [facility] Diastolic (mm Hg) 80 02/14/2013 [facility] Weight 236 01/24/2013 [facility] Heart Rate 80 01/24/2013 [facility] Systolic (mm Hg) 178 01/24/2013 [facility] Diastolic (mm Hg) 100 01/24/2013 [facility] Temperature Oral (F) 97.6 F 01/24/2013 [facility] Weight 235 01/17/2013 [facility] Temperature Oral (F) 98.3 F 01/17/2013 [facility] Heart Rate 74 01/17/2013 [facility] Systolic (mm Hg) 200 01/17/2013 [facility] Diastolic (mm Hg) 110 01/17/2013 [facility] Weight 233.25 12/07/2012 [facility] Temperature Oral (F) 98.1 F 12/07/2012 [facility] Heart Rate 80 12/07/2012 [facility] Systolic (mm Hg) 128 12/07/2012 [facility] Diastolic (mm Hg) 84 12/07/2012 [facility] Weight 235 11/08/2012 [facility] Heart Rate 88 11/08/2012 [facility] Systolic (mm Hg) 130 11/08/2012 [facility] Diastolic (mm Hg) 70 11/08/2012 [facility] Weight 234 10/30/2012 [facility] Temperature Oral (F) 97.8 F 10/30/2012 [facility] Heart Rate 80 10/30/2012 [facility] Systolic (mm Hg) 140 10/30/2012 [facility] Diastolic (mm Hg) 80 10/30/2012 [facility] Temperature Oral (F) 98 F 10/24/2012 [facility] Heart Rate 72 10/24/2012 [facility] Systolic (mm Hg) 150 10/24/2012 [facility] Diastolic (mm Hg) 90 10/24/2012 [facility] Weight 237 10/24/2012 [facility] Weight 239 10/13/2012 [facility] Heart Rate 83 10/13/2012 [facility] Systolic (mm Hg) 148 10/13/2012 [facility] Diastolic (mm Hg) 83 10/13/2012 [facility] Weight 225 07/07/2012 [facility] Heart Rate 84 07/07/2012 [facility] Systolic (mm Hg) 135 07/07/2012 [facility] Diastolic (mm Hg) 91 07/07/2012 [facility] Height 70 12/28/2011 [facility] Weight 236 12/28/2011 [facility] Heart Rate 64 12/28/2011 [facility] Systolic (mm Hg) 140 12/28/2011 [facility] Diastolic (mm Hg) 78 12/28/2011 [facility] Encounters Location Location Encounter Encounter Reason Attending ADM CT Stat Source Details Type Number For Provider Date Date Visit [facility] Report [id number] Fredy 02/16 02/16 [facility] [address] [facility] [id number] Fredy 03/28 03/28 [facility] [address] [place] /[facility] [id number] Fredy 05/13 05/13 Kenneth [facility] & [address] [place]TS /2013 [facility] Report [id number] Fredy 05/16 05/16 Kenneth [facility] & [address] [place] /2013 [facility] [id number] Fredy 06/08 06/08 [place] Office Visit [address] BUTTS /2013 [facility] Office [id number] Iman 12/20 12/20 [facility] [place] [facility] [place] 8250 [address], Me fiorella Garcia MD Group Internal Med [facility] Lab Report [id number] Iman 12/27 12/27 [facility] [place] 1010 Carmen, Medic al [place] BUTTS [facility] - [place] [facility] Office [id number] Iman 01/22 01/22 [facility] [place] [facility] Visit 7250 Carmen, Me fiorella Garcia MD Group Internal Med [facility] Lab Report [id number] Iman 01/22 01/22 [facility] [place] [facility] 7350 Carm[address], Me fiorella Garcia MD Group Internal Med [facility] Office [id number] Iman 06/21 06/21 [facility] [place] 1540 Carmen, Me fiorella Garcia MD Group Internal Med [facility] Lab Report [id number] [place] 07/10 07/10 [facility] [place] [facility] [address] [place], Medica l Jerzy Garcia APRN Group Internal Med [facility] Office [id number] He[place] 07/10 07/10 [facility] [place] [facility] Visit [address], Medica l Hari [facility] [place] Office [id number] Iman 07/26 07/26 [facility] [place] [facility] Visit 9200 [address], Me fiorella Garcia MD Group Internal Med [facility] Office [id number] Neela Hogue, 07/31 07/31 [facility] [place] Medical Visit 0900 PA-C /2014 [facility]ica l [facility] Lab Report [id number] Neela Hogue, 08/07 08/07 [place] [facility] 8470 PA-C Medica [facility] Internal [facility] Office [id number] Neela Hogue, 08/14 08/14 [facility] [place] 5750 [place] Medica l [facility] Lab Report [id number] Iman 08/15 08/15 [facility] [place] [facility] 7570 Carmen, Me fiorella Garcia MD Group Family Practice [facility] [place] Office [id number] 08/23 [place] Medical Visit 8260 [place], Me fiorella Garcia MD Group Internal Med [facility] [place] Office [id number] Heide08/27 [place] Medical Visit 3890 [place], Medicann chen [place] [facility] Group Cardiology [facility] Office [id number] Heide10/07 [place] Medical Visit 0690 [address] [place], /2014 Ne fiorella Noriega RESEARCH CLERK-BC Group Cardiology [facility] South Lab Report [id number] 10/23 [place] Medical 7800 ALL[address] [place], /2014 Ne fiorella Garcia RESEARCH CLERK-BC Group Internal Med [facility] Office [id number] [place]10/31 [place] Medical Visit 0280 ALLISON [place], Ne fiorella Garcia RESEARCH CLERK-BC Group Internal Med [facility] Office [id number] Heide12/05 [place] Medical Visit 1220 ALLISON [place], Ne fiorella Noriega RESEARCH CLERK-BC Group Family Practice Outpatient [id number] MAJID 12/05 Active [facility] ELIEL [facility] Ambulatory [id number] Majid 12/05 12/05 [facility] Cardiology Pre-Reg Eliel /2014 [facility] Outpt Diag [id number] Umer 01/02 01/03 OPID Outpatient Services [facility]elina [facility] Outpatient [id number] IMAN 01/14 [facility] [id number] MAJID 01/16 Active [facility] ELIEL [place] [facility] [id number] [facility] [facility] [id number] MAJID 01/30 Active [facility] ELIEL [place] Outpatient [id number] XRAY VISIT 01/31 Act [facility] Sunil Outpatient [id number] XRAY VISIT 01/31 Act zee [facility] [place] Outpatient [id number] IMAN 02/[address] [facility] [address] [id number] IMAN 02/07 Active [facility] WISSINGER [place] Outpatient [id number] XRAY VISIT 02/07 Act zee [facility] [place] Outpatient [id number] XRAY VISIT 02/07 Act zee [facility] Sunil Outpatient [id number] IMAN 02/10 Active [facility] WISSINGER [facility] Outpatient [id number] IMAN 02/10 Active [facility] WISSIN [facility] Inpatient [id number] Mohammad 03/05 03/07 Active Surgi adeola Etminan /2014 [facility] Outpatient [id number] [facility] 03/31 Activ e [facility] KEYSHAWN /2014 [facility] [place] [id number] Mitesh Perez 04/14 04/14 M H Sugar [place] Emergency /2014 [facility] Outpatient [id number] IMAN 04/22 Active [facility] WISSIN [place] Outpatient [id number] IMAN 05/14 Active [facility] WISSIN [place] Outpatient [id number] XRAY VISIT 05/14 Act zee [facility] Sunil Outpatient [id number] IMAN 05/20 Active [facility] WISSIN Sun[place] Outpatient [id number] IMAN 05/28 Active [facility] WISSIN [place] Outpatient [id number] IMAN 06/24 Active [facility] WISSINGER Sunil Outpatient [id number] XRAY VISIT 06/24 Act eze [facility] Sunil Outpatient [id number] IMAN 08/20 Active [facility] WISSINGER [place] Outpatient [id number] MAJID 10/13 Active [facility] ELIEL [place] Outpatient [id number] IMAN 10/19 Active [facility] WISSINGER [facility] Outpatient [id number] XRAY VISIT 10/19 Act zee [facility] Sunil Outpatient [id number] IMAN 11/19 Active [facility] WISSINGER [place] Outpatient [id number] IMAN 02/24 Active [facility] WISSINGER [place] Outpatient [id number] IMAN 03/02 Active [facility] WISSINGER [place] Outpatient [id number] MAJID 04/15 Active [facility] ELIEL [place] Outpatient [id number] IMAN 04/15 Active [facility] WISSINGER [facility] Outpatient [id number] IMAN 04/19 Active [facility] WISSINGER [place] Outpatient [id number] IMAN 04/21 Active [facility] SINGER [place] Outpatient [id number] ELENA 07/06 Active [facility] SULLIVAN [place] Outpatient [id number] IMAN 08/26 Active [facility] SIN [place] Outpatient [id number] IMAN 08/31 Active [facility] WISSINGER [facility] Outpt Diag [id number] Iman 09/30 10/01 OPID Outpatient Services Wissinger /2016 [facility] Outpatient [id number] MAJID 10/14 Active [facility] ELIEL [place] Outpatient [id number] MAGDALENE 10/28 Active [facility] VISIT /2016 Sunil Outpatient [id number] IMAN 12/08 Active [facility] WISSIN [place] Outpatient [id number] IMAN 03/10 Active [facility] SIN Sun[place] Outpatient [id number] IMAN 03/10 Active [facility] WISSIN Sunil [facility] Phone [id number] 03/14 03/16 Internal Message /2016 Medical [facility] [place] [facility] Phone [id number] 03/17 03/19 Internal Message /2016 Medical Medicine [facility] [place] Outpatient [id number] 03/22 Active [facility] SULLIVAN [place] Outpatient [id number] XRAY VISIT 03/22 Act zee [facility] [place] Outpatient [id number] XRAY VISIT 03/22 Act zee [facility] [place] [facility] Family Outpatient [id number] 03/22 03/23 Medicine El /2016 Medic al [place] [facility] Ambulatory [id number] NURSE 03/22 03/22 Radiology Pre-Reg VISIT /2016 [facility] l [place] [facility] Outpatient [id number] NURSE 03/22 03/23 Radiology VISIT /2016 [facility] Family Phone [id number] 03/28 03/30 MH Medicine El Message /2016 Medi adeola [place] [facility] Phone [id number] 03/31 04/02 MH Internal Message /2016 Medical Medicine [facility] [place] [facility] Phone [id number] 04/06 04/08 Cardiology Message /2016 Medic al [facility] Outpatient [id number] DOPPLER 04/11 Active [facility] VISIT /2016 [place] Outpatient [id number] DOPPLER 04/11 Active [facility] VISIT /2016 [place] Outpatient [id number] DOPPLER 04/11 [facility] [id number] NURSE 04/11 04/11 Radiology Pre-Reg VISIT /2016 [facility] [place] [facility] Ambulatory [id number] NURSE 04/11 04/11 Radiology Pre-Reg VISIT /2016 [facility]ica l [facility] Ambulatory [id number] NURSE 04/11 04/11 Radiology Pre-Reg VISIT /2016 [facility] Outpatient [id number] MAJID 04/14 Active [facility] ELIEL /2016 Carp[place] [facility] Outpatient [id number] Majid 04/14 04/15 Cardiology Leiel /2016 [facility]ica l [facility] Outpatient [id number] IMAN 06/16 Active [facility] WISSINGER Sunil [facility] Outpatient [id number] Iman 06/16 06/17 Internal [place] /2017 Medic al Medicine El [facility] [place] [facility] Phone [id number] 06/30 07/02 Internal Message /2017 Medical [facility] [place] Outpatient [id number] IMAN 07/27 [facility] [id number] Iman 07/27 07/28 Internal [place] /2017 Medic al Medicine El [facility] [place] [facility] Phone [id number] 09/05 09/07 Internal Message /2017 Medical Medicine [facility] [place] Outpatient [id number] IMAN 09/08 [facility] [id number] Iman 09/08 09/09 Internal [place] /2017 Medic al Medicine El [facility] [place] Outpatient [id number] MAJID 11/10 [facility] [id number] Majid 11/10 11/11 Cardiology Eliel /2017 [facility] [place] [facility] Outpatient [id number] IMAN 12/13 Active [facility] WISSINGER Carp[place] [facility] Outpatient [id number] Iman 12/13 12/14 Internal [place] /2017 Medic al Medicine Group [facility] Outpatient [id number] LAB VISIT 12/16 Acti ve [facility] Sunil Outpatient [id number] LAB VISIT 12/16 Acti ve [facility] Sunil [facility] Ambulatory [id number] Iman 12/16 12/17 MH Internal Pre-Reg [place] /2017 Medi adeola Medicine El [facility] [place] [facility] Ambulatory [id number] 12/16 12/16 MH Internal Pre-Reg /2017 Medical [facility] [place] [facility] Family Phone [id number] 12/19 12/21 MH Medicine Message /2017 Medical [facility] Phone [id number] 12/19 12/21 MH Internal Message /2017 Medical [facility] [place] Phone [id number] 12/19 12/21 MH Internal Message /2017 [facility] [place] [facility] Family Phone [id number] 12/20 12/22 MH Medicine Message /2017 [facility] Outpatient [id number] IMAN 12/21 Active [facility] WISSIN [place] Outpatient [id number] IMAN 12/21 Active [facility] WISSIN [place] Outpatient [id number] XRAY VISIT 12/21 Act zee [facility] [place] Outpatient [id number] XRAY VISIT 12/21 Act zee [facility] [place] MG Phone [id number] 12/21 12/23 Internal Message /2017 [facility] [place] [facility] Outpatient [id number] Iman 12/21 12/22 Internal [place] /2017 Medic al [facility] [place] [facility] Ambulatory [id number] Iman 12/21 12/21 MH Internal Pre-Reg [place] /2017 Medi adeola Medicine El [facility] [place] MG Ambulatory [id number] NURSE 12/21 12/21 MH Radiology Pre-Reg VISIT /2017 [facility]ica l [facility] MG Family Outpatient [id number] NURSE 12/21 12/22 MH Medicine VISIT /2017 Medical [facility] MG Phone [id number] 12/28 12/30 MH Internal Message /2017 [facility] [place] Outpatient [id number] [facility] 01/03 Active [facility] MCGREGOR Sun[facility] MG Outpatient [id number] Vasile 01/03 01/04 MH Pulmonology Mcgregor /2017 Medic al [facility] Family Phone [id number] 01/16 01/18 MH Medicine Message /2017 [facility] [place] [facility] Outpatient [id number] IMAN 01/18 Active [facility] WISSIN [place] MG Outpatient [id number] Iman 01/18 01/19 Internal [place] /2017 Medic al Medicine Group [facility] Phone [id number] 01/30 02/01 MH Pulmonology Message /2017 [facility] adeola [facility] Outpatient [id number] JAYLA 03/07 Active [facility] TEYK [place] Outpatient [id number] MIKE 03/07 Active [facility] DARRION Sunil MG Outpatient [id number] Jayla 03/07 03/08 MH Urology Teykl /2017 [facility] [place] [facility] MG Family Outpatient [id number] Mike 03/07 03/08 Medicine Darrion /2017 [facility] MG Family Phone [id number] 03/27 03/29 Medicine Message /2017 [facility] [place] [facility] [id number] [facility] Act zee [facility] Sunil MG [facility] [id number] [facility] 03/29 MH Urology /2017 [facility] [place] MG Family Phone [id number] 03/28 03/30 Medicine Message /2017 [facility] [place] MG Family Phone [id number] 04/04 04/06 Medicine Message /2017 [facility] [place] [facility] Outpt Diag [id number] Mike 04/05 04/06 MH OPID Outpatient Services Darrion /2017 [facility] Family Phone [id number] 04/10 04/12 MH Medicine Message /2017 Medical [facility] Outpatient [id number] EWELINA 04/26 Active [facility] JANES Sun[facility] MG Family Outpatient [id number] Ewelina 04/26 04/27 Medicine Janes /2017 [facility] [place] Outpatient [id number] LAB VISIT 05/10 Acti ve [facility] Sunil MG Ambulatory [id number] 05/10 05/10 Internal Pre-Reg /2018 [facility] [place] Outpatient [id number] MIKE 05/18 Active [facility] DARRION [place] Outpatient [id number] MAJID 05/18 Active [facility] ELIEL [place] Family Ambulatory [id number] Mike 05/18 05/18 Medicine Pre-Reg Darrion /2018 [facility] [place] [facility] Outpatient [id number] Majid 05/18 05/19 Cardiology Eliel /2018 [facility] Outpatient [id number] ELIAS LAMIN 07/11 Act zee [facility] [place] [facility] Ambulatory [id number] [place] 07/11 07/11 Urology Pre-Reg /2018 [facility] [place] Family Phone [id number] 07/18 07/20 Medicine Message /2018 [facility] [place] [facility] Family Between [id number] 08/22 08/23 MH Medicine Visit /2018 [facility] Outpatient [id number] LAB VISIT 08/28 Acti ve [facility] Sunil Outpatient [id number] Mike 09/04 Active [facility] Darrion [facility] Family Outpatient [id number] Mike 09/04 09/05 Medicine Darrion /2018 Medical [facility] Outpatient [id number] Alonzo 09/18 Active [facility] Nguyen [facility] MG Outpatient [id number] Alonzo 09/18 09/19 Gastroenter Nguyen /2018 Med ical ology Group [place] Between [id number] 09/21 09/22 MH Gastroenter Visit /2018 Medic al ology Group [facility] MG Family Phone [id number] 09/29 10/01 Medicine Message /2018 Medical [facility] Outpatient [id number] NURSE 10/04 Active [facility] VISIT /2018 Sunil MG Outpatient [id number] NURSE 10/04 10/05 Radiology VISIT /2018 Medical [facility] Group [facility] Phone [id number] 10/04 10/06 MH Gastroenter Message /2018 Medi adeola ology Group [place] Outpatient [id number] Chelly Jaeger 11/09 Active [facility] Mazel [facility] Outpatient [id number] Chelly Heide 11/09 11/10 MH Cardiology Mazel /2018 [facility]ica l [facility] Family Phone [id number] 12/20 12/22 MH Medicine Message /2018 [facility] [place] [facility] Outpatient [id number] NURSE 12/26 Active [facility] VISIT /2018 [facility] Outpatient [id number] NURSE 12/26 12/27 MH Radiology VISIT /2018 [facility] [place] [facility] Outpatient [id number] 01/12 Act zee [facility] -VISIT, Sunil LAB [facility] Family Between [id number] 01/15 01/16 MH Medicine Visit /2018 [facility] [place] [facility] Outpatient [id number] Mike 01/19 Active [facility] Darrion Sun[facility] Family Outpatient [id number] Mike 01/19 01/20 MH Medicine Drarion /2018 [facility] [place] [facility] Family Phone [id number] 02/20 02/22 MH Medicine Message /2018 Medical [facility] Phone [id number] 04/12 04/14 MH Cardiology Message /2018 Medic al [facility] [facility] Outpatient [id number] Majid 05/17 Active [facility] Eliel /2019 Sunil [facility] Outpatient [id number] Majid 05/17 05/18 MH Cardiology Eliel /2019 [facility]ica l [facility] Family Phone [id number] 07/01 07/03 MH Medicine Message /2019 [facility] Outpatient [id number] 07/19 Act zee [facility] -VISIT, Sunil LAB Outpatient [id number] Elias [place]09/11 Act zee [facility] Outpatient [id number] Elias Roberts 09/11 09/12 MH Urology /2019 [facility] Family Phone [id number] 09/24 09/26 MH Medicine Message /2019 Medical [facility] Family Between [id number] 10/10 10/11 MH Medicine Visit /2019 Medical [facility] Outpatient [id number] Mike 10/16 Active [facility] Darrion [facility] Family Outpatient [id number] Mike 10/16 10/17 Medicine Darrion /2019 Medical [facility] Outpatient [id number] Lobo 11/06 Active [facility] Nwani Sunil Outpatient [id number] NURSE 11/07 Active [facility] VISIT [place] Outpatient [id number] Majid 11/14 Active [facility] Eliel [place] Outpatient [id number] 04/10 Act zee [facility] -VISIT, [place] LAB Outpatient [id number] Mike 04/17 Active [facility] Darrion Sunil Outpatient [id number] Elias Roberts 09/17 Act zee [facility] [place] Procedures Procedure Code Date Perf[place] [address] Medical post-voiding residual 0 Julia up urine and/or bladder capacity by ultrasound, non-imaging Cystourethroscopy 37061 Medi adeola (separate procedure) 8 Grou p APPLICATION Etminan 2auto-populate Surgical INTERVERTERAL DEVICE 5 d from Spec ialty 66736 documented Hospital of (Other)<sup>2</sup> surgical case [place] [facility] [place] ARTHRODESIS COMB. Etminan 3auto-populate Raphael gical POSTERIOR INTERBODY 5 d from Speci alty TECH . W/LAMI OR DISC documented [facility] SIN. LUM 50182 surgical case Sugar L and (Other)<sup>3</sup> ARTHRODESIS Etminan 4auto-populate Surgical POST/POSTEROLATERAL 5 d from Speci alty TECH. W/POST. INT. documented Hospit al of [employer] [employer] surgical case [facility] LAMI/DISCECTOMY EA. ADD. SPACE 65445 (Other)<sup>4</sup> LAMINECTOMY Etminan 5auto-populate Surgical FACETECTOMY AND 5 d from Specialty FORAMINOTOMY SINGLE documented Hospi joselyn of VERTEBRAL surgical case [facility] SEGMENT;LUMBAR 43051 (Other)<sup>5</sup> LAMINECTOMY/FACETECTOM Etminan 6auto-populat e Surgical Y AND FORAMINOTOMY UNI 5 d from Sp ecialty OR BI W/DEC [place] [address] surgical case [facility] (Other)<sup>6</sup> POSTERIOR SEGMENTAL Etminan 7auto-populate S urgical INSTRUMENTATION 55032 5 d from [facility]sup>7</sup> documented Hospi joselyn of surgical case [place] Prostate destructive [id number] [facility] edical procedure 5 Group, OPID [facility] echocardiogram, 12031 Complete Medica l complete 3 Group Colonoscopy [id number] Surgical [facility] TURP - Transurethral [id number] [facility] edical resection of prostate 0 Julia up, OPID [facility] colonoscopy 70818 Done Medical 9 Group Abdominal aortic [id number] 1last cardiac Surgi adeola aneurysm 8 studies 1 yr Specialty stenting<sup>1</sup> ago. Ekg and Ho spital of cardiac [facility] clearence in chart prostate 8due to Surgical procedure<sup>8</sup> 9 enlarged [facility] left knee surgery Surgica l 6 [facility] Vasectomy 67777306 [facility] Abdominal aortic [id number] Medic al aneurysm stenting Group,M H OPID [facility], [facility] Back fusion [id number] Medical Group, [facility] Operation [id number] Medical Group Assessment and Plan No Data Provided for This Section Plan of Care No Data Provided for This Section Social History Social History Date Source Social History TypeResponse 09/12/2019 Medical [place] Alcohol Current, Type Beer. Frequency: Daily. Employment/School Status: Retired. 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 Substance Abuse Use: None. Smoking Status Former smoker; Ready to change: No; Conc erns about tobacco use in household: No; Exposure to Tobacco Smoke None; Cigarette Smoking Last 365 Days No; Reg Smoking Cessation Counseling No entered on: 10/17/19 Social History TypeResponse 09/18/2018 [place] Substance Abuse Use: None. Employment/School Status: Retired. 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 Alcohol Current, Type Beer. Frequency: Daily. Smoking Status Former smoker; Exposure to Tobacco Smoke None; Cigarette Smoking Last 365 Days No; Reg Smoking Cessation Counseling No entered on: 09/18/18 Social History TypeResponse 01/14/2015 Sanjuana sanchez Alcohol Current, Type Beer. Frequency: Daily. Smoking Status Former smoker; Exposure to Tobacco Smoke None; Cigarette Smoking Last 365 Days No; Reg Smoking Cessation Counseling No No data available for this 12/05/2014 [facility] section Family History No Data Provided for This Section Advance Directives No Data Provided for This Section Functional Status No Data Provided for This Section
--- OUTSIDE RECORDS SUMMARY | 2019-11-09 18:48 | XMS REPORT | Summary of Care ---
:1955 Author Organization [facility] Address [address] [place] [address] Encounter HQ Srir_darius(FIN) [id number] Date(s): 09/12/19 - 09/12/19 [facility] [address] [address] [phone] Discharge Disposition: Home or Self Care Attending Physician: Porter Roberts MD Vital Signs Most recent to oldest [Reference Range]: 1 Height 177.8 cm (09/12/19 10:43 AM) Weight 98.182 kg (09/12/19 10:43 AM) Body Mass Index 31.06 m2 (09/12/19 10:43 AM) Problem List Condition Effective Dates Status Health Status Informant Abdominal aortic aneurysm1, 2 Active BPH(Confirmed) Active Gout(Confirmed) Active Heart murmur3, 4, 5, 6 Active Herpes zoster(Confirmed) Active Hypertension(Confirmed) Active Liver enzymes abnormal(Confirmed)7, 8, 07/26/14 Active 9 Mixed hyperlipidemia(Confirmed) Active Obesity(Confirmed) Active Nanzudjtplxraq91, 11 Active Drug therapy(Confirmed) Active Peripheral vascular swzmnqu55, 13 01/17/13 Active Hvvycxslbea51, 15, 16 08/13/14 Active Vitamin D exqxxwhhpo53, 18 12/28/11 Active 1Data migrated from [employer] on 11/06/14.2Data migrated from [employer] on 09/28/14.3Data migrated from [employer] on 11/06/14.4Data migrated from [employer] on 11/06/14.5Data migrated from [employer] on 10/01/14.6Data migrated from [employer] on 09/28/14.7Data migrated from [employer] on 11/06/14.8Data migrated from [employer] on 11/06/14.9Data migrated from [employer] on 10/01/14.10Data migrated from [employer] on 11/06/14.11Data migrated from [employer] on 09/28/14.12Data migrated from [employer] on 11/06/14.13Data migrated from [employer] on 09/28/14.14Data migrated from [employer] on 11/06/14.15Data migrated from [employer] on 11/06/14.16Data migrated from [employer] on 10/01/14.17Data migrated from [employer] on 11/06/14.18Data migrated from [employer] on 09/28/14. Allergies, Adverse Reactions, Alerts Substance Reaction Severity Status Cefuroxime Axetil Active Medications No Known Medications Results Most recent to oldest [Reference Range]: 1 eGFR NON-AFR. DANISH [> OR = 60 mL/min/1.73m2] 65 mL /min/1.73m2 *N* (09/12/19 11:32 AM) eGFR [> OR = 60 mL/min/1.73m2] 75 mL/ min/1.73m2 *N* (09/12/19 11:32 AM) B/C Ratio [6-22] NOT APPLICABLE (09/12/19 11:32 AM) BUN [7-25 mg/dL] 20 mg/dL *N* (09/12/19 11:32 AM) Calcium Lvl [8.6-10.3 mg/dL] 10.1 mg/dL *N* (09/12/19 11:32 AM) Chloride Lvl [98-110 mMol/L] 102 mMol/L *N* (09/12/19 11:32 AM) CO2 [20-32 mMol/L] 28 mMol/L *N* (09/12/19 11:32 AM) Creatinine Lvl [0.70-1.25 mg/dL] 1.17 mg/dL 1 *N* (09/12/19 11:32 AM) Glucose Lvl [65-99 mg/dL] 106 mg/dL 2 *HI* (09/12/19 11:32 AM) Hct [38.5-50.0 %] 43.2 % *N* (09/12/19 11:32 AM) Hgb [13.2-17.1 g/dL] 14.7 g/dL *N* (09/12/19 11:32 AM) Potassium Lvl [3.5-5.3 mMol/L] 3.9 mMol/L *N* (09/12/19 11:32 AM) MCH [27.0-33.0 pg] 30.6 pg *N* (09/12/19 11:32 AM) MCHC [32.0-36.0 g/dL] 34.0 g/dL *N* (09/12/19 11:32 AM) MCV [80.0-100.0 fL] 90.0 fL *N* (09/12/19 11:32 AM) MPV [7.5-12.5 fL] 12.2 fL *N* (09/12/19 11:32 AM) Sodium Lvl [135-146 mMol/L] 141 mMol/L *N* (09/12/19 11:32 AM) Platelet [140-400 K/CMM] 202 K/CMM *N* (09/12/19 11:32 AM) PSA [< OR = 4.0 ng/mL] 1.7 ng/mL 3 *N* (09/12/19 11:32 AM) RBC [4.20-5.80 M/CMM] 4.80 M/CMM *N* (09/12/19 11:32 AM) RDW [11.0-15.0 %] 13.4 % *N* (09/12/19 11:32 AM) WBC [3.8-10.8 K/CMM] 10.1 K/CMM 4 *N* (09/12/19 11:32 AM) 1Result Comment: For patients >49 years of age, the reference limit for Creatinine is approximately 13% higher for people identified as -Austrian.2Result Comment: Fasting reference interval For someone without known diabetes, a glucose value between 100 and 125 mg/dL is consistent with prediabetes and should be confirmed with a follow-up test. Lab test performed by: [facility] [address] [place] [address] Alfredo Hurley3Result Comment: The total PSA value from this assay system is standardized against the WHO standard. The test result will be approximately 20% lower when compared to the equimolar-standardized total PSA ([place]). Comparison of serial PSA results should be interpreted with this fact in mind. This test was performed using the Siemens chemiluminescent method. Values obtained from different assay methods cannot be used interchangeably. PSA levels, regardless of value, should not be interpreted as absolute evidence of the presence or absence of disease. Lab test performed by: [facility] [address] [place] [address] Alfredo Hurley4Result Comment: Lab test performed by: [facility] [address] [place] [address] Alfredo Hurley Immunizations Given and Recorded Vaccine Date Status Refusal Reason pneumococcal 13-valent vaccine 01/19/19 Given influenza virus vaccine, inactivated1 12/27/18 Recorded influenza virus vaccine, inactivated 03/07/18 Given 1Location History: [facility] Procedures Procedure Date Related Diagnosis Body Site Status Measurement of post-voiding residual 09/12/19 Completed urine and/or bladder capacity by ultrasound, non-imaging Prostate destructive procedure 2014 Completed TURP - Transurethral resection of 2009 Completed prostate Abdominal aortic aneurysm stenting Completed Back fusion Completed Social History Social History Type Response Alcohol Current, Type Beer. Frequen cy: Daily. Employment/School Status: Retired. 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 Highest education le elia: Some college. Substance Abuse Use: None. Smoking Status Former smoker; Ready to medina ge: No; Concerns about tobacco use in household: No; Exposure to Tobacco Smoke None; Cigarette Smoking Last 365 Days No; Reg Smoking Cessation Counseling No entered on: 09/12/19 Assessment and Plan No data available for this section
--- OUTSIDE RECORDS SUMMARY | 2019-11-09 18:48 | XMS REPORT | Summary of Care ---
:1955 Author Organization [facility] Address [address] [place] [address]- Encounter HQ Encntr_alidavid(FIN) [id number] Date(s): 10/11/19 - 10/12/[address] [place] [address]- [phone] Vital Signs No data available for this section Problem List Condition Effective Dates Status Health Status Informant Abdominal aortic aneurysm1, 2 Active BPH(Confirmed) Active Gout(Confirmed) Active Heart murmur3, 4, 5, 6 Active Herpes zoster(Confirmed) Active Hypertension(Confirmed) Active Liver enzymes abnormal(Confirmed)7, 8, 07/26/14 Active 9 Mixed hyperlipidemia(Confirmed) Active Obesity(Confirmed) Active Vkkgayythlahsy58, 11 Active Drug therapy(Confirmed) Active Peripheral vascular , 13 01/17/13 Active Bhqzdqclilo40, 15, 16 08/13/14 Active Vitamin D quyvmuzlqq93, 18 12/28/11 Active 1Data migrated from GE [...] Severity Status Cefuroxime Axetil Active Medications No data available for this section Results No data available for this section Immunizations Given and Recorded Vaccine Date Status Refusal Reason pneumococcal 13-valent vaccine 01/19/19 Given influenza virus vaccine, inactivated1 12/27/18 Recorded influenza virus vaccine, inactivated 03/07/18 Given 1Location History: [facility] Procedures Procedure Date Related Diagnosis Body Site Status Prostate destructive procedure 2014 Completed TURP - Transurethral resection of prostate 2009 Completed Abdominal aortic aneurysm stenting Completed Back fusion Completed Social History Social History Type Response Alcohol Current, Type Beer. Frequen cy: Daily. Employment/School Status: Retired. 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 Highest education le elia: Some college. Substance Abuse Use: None. Smoking Status Former smoker; Ready to [facility]: No; Concerns about tobacco use in household: No; Exposure to Tobacco Smoke None; Cigarette Smoking Last 365 Days No; Reg Smoking Cessation Counseling No entered on: 09/12/19 Assessment and Plan No data available for this section
--- OUTSIDE RECORDS SUMMARY | 2019-11-09 18:48 | XMS REPORT | Summary of Care ---
:1955 Author Organization [facility] Address [address] [place] [address]- Encounter HQ Narcisa(DANDRE) [id number] Date(s): 10/17/19 - 10/17/19 [facility] [address] [place] [address]- [phone] Discharge Disposition: Home or Self Care Attending Physician: Corrie Jauregui DO Vital Signs Most recent to oldest [Reference Range]: 1 Height 177.8 cm (10/17/19 9:23 AM) Blood Pressure [90-140/60-90 mmHg] 107/67 mmHg (10/17/19 9:23 AM) Peripheral Pulse Rate [60-100 bpm] 67 bpm (10/17/19 9:23 AM) Weight 97.727 kg (10/17/19 9:23 AM) Body Mass Index 30.91 m2 (10/17/19 9:23 AM) Problem List Condition Effective Dates Status Health Status Informant Abdominal aortic aneurysm1, 2 Active BPH(Confirmed) Active Gout(Confirmed) Active Heart murmur3, 4, 5, 6 Active Herpes zoster(Confirmed) Active Hypertension(Confirmed) Active Liver enzymes abnormal(Confirmed)7, 8, 07/26/14 Active 9 Mixed hyperlipidemia(Confirmed) Active Obesity(Confirmed) Active Rgmcjiltzmzxue79, 11 Active Drug therapy(Confirmed) Active Peripheral vascular agwudaa59, 13 01/17/13 Active Hepatic steatosis(Confirmed) Active Jdcezykafyz05, 15, 16 08/13/14 Active Trigger finger of left Active thumb(Confirmed) Trigger ring finger of right Active hand(Confirmed) Vitamin D jqrmmstnxa46, 18 12/28/11 Active 1Data migrated from [employer] on 11/06/14.2Data migrated from [employer] on [...] Reaction Severity Status Cefuroxime Axetil Active Medications atorvastatin 40 mg oral tablet See Instructions, TAKE 1 TABLET BY MOUTH EVERYDAY AT BEDTIME, # 90 tab, 3 Refill(s), Pharmacy: [id number], 177.8, cm, 10/17/19 9:23:00 CDT, Height, 97.727, kg, 10/17/19 9:23:00 CDT, Weight Start Date: 10/17/19 Status: Ordered Results No data available for this section Immunizations Given and Recorded Vaccine Date Status Refusal Reason pneumococcal 13-valent vaccine 01/19/19 Given influenza virus vaccine, inactivated1 12/27/18 Recorded influenza virus vaccine, inactivated 03/07/18 Given 1Location History: [facility] Procedures Procedure Date Related Diagnosis Body Site Status Prostate destructive procedure 2014 Completed TURP - Transurethral resection of prostate 2009 Completed Abdominal aortic aneurysm stenting Completed Back fusion Completed Social History Social History Type Response Alcohol Current, Type Beer. Frequen cy: Daily. Employment/School Status: Retired. 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 Highest education le elia: Some college. Substance Abuse Use: None. Smoking Status Former smoker; Ready to [facility]: No; Concerns about tobacco use in household: No; Exposure to Tobacco Smoke None; Cigarette Smoking Last 365 Days No; Reg Smoking Cessation Counseling No entered on: 10/17/19 Assessment and Plan No data available for this section
--- OUTSIDE RECORDS SUMMARY | 2019-11-09 18:48 | XMS REPORT | Summary of Care ---
:1955 Author Organization [facility] Address [address] [place] [address]- Encounter HQ Encntr_alidavid(FIN) [id number] Date(s): 09/25/19 - 09/26/[address] [place] [address]- [phone] Vital Signs No data available for this section Problem List Condition Effective Dates Status Health Status Informant Abdominal aortic aneurysm1, 2 Active BPH(Confirmed) Active Gout(Confirmed) Active Heart murmur3, 4, 5, 6 Active Herpes zoster(Confirmed) Active Hypertension(Confirmed) Active Liver enzymes abnormal(Confirmed)7, 8, 07/26/14 Active 9 Mixed hyperlipidemia(Confirmed) Active Obesity(Confirmed) Active Ienowzjvlehfnv33, 11 Active Drug therapy(Confirmed) Active Peripheral vascular bojxzgo11, 13 01/17/13 Active Vdhpyxjvmwd96, 15, 16 08/13/14 Active Vitamin D mpynsrgnpz05, 18 12/28/11 Active 1Data migrated from GE [...] Reaction Severity Status Cefuroxime Axetil Active Medications allopurinol 100 mg oral tablet = 1 tab, PO, Daily, # 90 tab, Pharmacy: [facility]/pharmacy #[id number] Start Date: 09/25/19 Status: Ordered Results No data available for this section Immunizations Given and Recorded Vaccine Date Status Refusal Reason pneumococcal 13-valent vaccine 01/19/19 Given influenza virus vaccine, inactivated1 12/27/18 Recorded influenza virus vaccine, inactivated 03/07/18 Given 1Location History: [facility] Procedures Procedure Date Related Diagnosis Body Site Status Prostate destructive procedure 2014 Completed TURP - Transurethral resection of prostate 2009 Completed Abdominal aortic aneurysm stenting Completed Back fusion Completed Social History Social History Type Response Alcohol Current, Type Beer. Frequen cy: Daily. Employment/School Status: Retired. 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 Highest education le elia: Some college. Substance Abuse Use: None. Smoking Status Former smoker; Ready to [facility] ge: No; Concerns about tobacco use in household: No; Exposure to Tobacco Smoke None; Cigarette Smoking Last 365 Days No; Reg Smoking Cessation Counseling No entered on: 09/12/19 Assessment and Plan No data available for this section
--- OUTSIDE RECORDS SUMMARY | 2019-11-09 18:48 | XMS REPORT | Continuity of Care Document ---
:1955 Author Organization [facility] Address [address] [place] [address] Care Team Providers Name Role Phone ETMINAN Attending Clinician Unavailable EWELINA Attending Clinician Unavailable Problems Condition Condition Condition Status Onset Resolution Last Treating Co mments Source Name Details Category Date Date Treatment Clinician Date History of History of Problem Resolve Univers abdominal abdominal HL7.CCDAR2 d ity of aortic aortic [place] aneurysm aneurysm Physic i (AAA) (AAA) ans History of History of Problem Resolve Univers gout gout HL7.CCDAR2 d ity of [place] Physici ans Low back Low back Problem Active Unive rs pain pain HL7.CCDAR2 ity of [place] Physici ans Left foot Left foot Problem Active Uni vers pain pain HL7.CCDAR2 ity of [place] Physici ans Tophaceous Tophaceous Problem Active U nivers gout gout HL7.CCDAR2 ity of [place] Physici ans Hallux Hallux Problem Active Univers rigidus of rigidus of HL7.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 [place] Plantar Plantar Problem Active 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 [place] Physici ans Strain of Strain of Problem Active Uni vers muscle, muscle, HL7.CCDAR2 ity of fascia [place] and [place] tendon of tendon of Phys ici lower lower ans back, back, initial initial encounter encounter Hyperurice Hyperurice Problem Active U nivers denny denny HL7.CCDAR2 ity of [place] Physici ans Gouty Gouty Problem Active Univers tophi tophi HL7.CCDAR2 ity of [place] Physici ans 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 HL7.CCDAR2 ity of [place] Physici ans Lumbar Lumbar Problem Active Univers radiculopa radiculopa HL7.CCDAR2 ity of thy thy [place] Physici ans Bronchitis Bronchitis Problem Active U nivers HL7.CCDAR2 ity of [place] Physici ans Gout Gout Problem Active Univers HL7.CCDAR2 ity of [place] Physici ans Asthma Asthma Problem Active Univers HL7.CCDAR2 ity of [place] Physici ans Hyperchole Hyperchole Problem Active U nivers sterolemia sterolemia HL7.CCDAR2 ity of [place] Physici ans HTN HTN Problem Active Univers (hypertens (hypertens HL7.CCDAR2 ity of ion) ion) [place] Physici ans Allergies, Adverse Reactions, Alerts This patient has no known allergies or adverse reactions. Family History Family Member Diagnosis Comments Start Date Stop Date Source Unknown Family Family history of Family History University of Member cardiac disorder [place] Ph y[facility]icians Unknown Family Family history of Family History University of Member malignant [place] Physicia ns neoplasm Medications Ordered Filled Start Stop Current Ordering Indication Dosage Frequency Signature Comments Components Source Medication Medication Date Date Medication? Clinician (SIG) Name Name Tylenol Tylenol Yes Univers with with ity of Codeine #3 Codeine #3 Nash as 300-30 MG 300-30 MG Physi ci Oral Tablet Oral Tablet a ns Pantoprazol Pantoprazol Yes U nivers e Sodium 20 e Sodium 20 i ty of MG Oral MG Oral [place] Tablet Tablet Physici Delayed Delayed ans Release Release Naproxen Naproxen Yes Univers 500 MG Oral 500 MG Oral i ty [facility] Medrol 4 MG Medrol 4 MG Yes U nivers Oral Tablet Oral Tablet i ty of [place] Physici ans Finasteride Finasteride Yes U nivers 5 MG Oral 5 MG Oral ity o f Tablet Tablet [place] Physici ans Allopurinol Allopurinol Yes U nivers 300 MG Oral 300 MG Oral i ty of Tablet Tablet [place] Physici ans HydrALAZINE HydrALAZINE Yes U nivers HCl - 25 MG HCl - 25 MG i ty of Oral Tablet Oral Tablet [place] Physici ans Viagra 100 Viagra 100 Yes Uni vers MG Oral MG Oral ity of Tablet Tablet [place] Physici ans ProAir HFA ProAir HFA Yes Uni vers 108 (90 108 (90 ity of Base) Base) [place] MCG/ACT MCG/ACT Physici Inhalation Inhalation ans Aerosol Aerosol Solution Solution Colchicine Colchicine Yes Uni vers 0.6 MG Oral 0.6 MG Oral i ty of Tablet Tablet [place] Physici ans Sulfamethox Sulfamethox Yes U nivers azole-Trime azole-Trime i ty of thoprim thoprim [place] TABS TABS Physici ans Metoprolol Metoprolol Yes Uni vers Succinate Succinate ity o f ER 50 MG ER 50 MG [place] Oral Tablet Oral Tablet P hysici Extended Extended ans Release 24 Release 24 Hour Hour Flomax CAPS Flomax CAPS Yes U nivers ity of [place] Physici ans Amlodipine- Amlodipine- Yes U nivers Atorvastati Atorvastati i ty of n 10-10 MG n 10-10 MG Nash as Oral Tablet Oral Tablet P hysici ans Vytorin Vytorin Yes Univers 10-80 MG 10-80 MG ity of Oral Tablet Oral Tablet [place] Physici ans Vitamin D3 Vitamin D3 Yes Uni vers 2000 UNIT 2000 UNIT ity o f Oral Oral [place] Capsule Capsule Physici ans Vital Signs Vital Name Observation Time Observation Value Comments Source BP Systolic 2018-03-22 08:59:00 137 mm[Hg] [facility] BP Diastolic 2018-03-22 08:59:00 80 mm[Hg] [facility] Height 2018-03-22 08:59:00 70 [in_us] [facility] Weight 2018-03-22 08:59:00 228 [lb_av] [facility] Body Mass Index 2018-03-22 08:59:00 32.71 kg/m2 [facility]culated Physicians Heart Rate 2018-03-22 08:59:00 74 /min [facility] Procedures Procedure Date / Time Performing Clinician Source Performed History of [facility] [place] arthroscopy Physicians History of Lumbar [facility] vertebral fusion Physicians Encounters Start End Encounter Admission Attending Care Care Encounter Source Date/Time Date/Time Type Type Clinicians Facility Department ID 2018-03-21 2018-03-21 ANNA Salguero UTP [id number] Univers 13:00:00 13:00:00 t; Margarette JIMENEZ i ty of Ramesh SHERIDAN Surgery - [place] Chet JIMENEZ M.D. Trace 2 POD ans 2 2017-08-11 2017-08-11 ANNA Salguero UTP [id number] Univers 14:30:00 14:30:00 t; MOH[place], ity of ETRamesh ISAACS Physic i M.D. ans 2017-01-20 2017-01-20 Appointmen ANNA THEODORE UTP [id number] Univers 15:00:00 15:00:00 t; GRACE THEODORE P.A. ity of AJAY, P.A. [place] Physic ans 2017-01-13 2017-01-13 [facility]NA SHERIDAN UTP [id number] Univers 13:15:00 13:15:00 t; Marta JIMENEZ M.D. [place] Sloan JIMENEZ i, M.D. [facility] 2016-07-16 2016-07-16 [facility] ANNA SHERIDAN UTP [id number] Univers 08:30:00 08:30:00 t; Marta JIMENEZ M.D. [place] MOHAM[place], Physic i M.D. [facility] Results This patient has no known results.
[2019-11-09 20:05] LABS: Absolute Lymphocytes (CBC) 0.7 K/uL (0.7-4.9); Basophils % 0.4 % (0-1.3); Hematocrit 40.9 % (39.6-49.0); Lymphocytes % 8.9 % (15.3-44.8); MPV 9.6 fL (7.6-11.3); RBC Red Blood Cell Count 4.57 M/uL (4.33-5.43)
[2019-11-09 20:09] LABS: Protime INR 1.11
--- NOTE | 2019-11-09 20:22 | RAD REPORT ---
EXAM DESCRIPTION: Mónicat Single View11/09/2019 8:15 pm CLINICAL HISTORY: sob COMPARISON: none FINDINGS: 7 centimeter consolidation is suspected within the mid to lower left lung. Mild right basi lar opacity Heart is normal size IMPRESSION: Bilateral pulmonary opacities likely pneumonia
[2019-11-09 20:23] LABS: ALT/SGPT 56 U/L (12-78); AST/SGOT 98 U/L (15-37); Alkaline Phosphatase 157 U/L (45-117); BUN Blood Urea Nitrogen 25 mg/dL (7-18); Bicarbonate 21 mmol/L (21-32); Bilirubin Direct 0.1 mg/dL (0-0.2); Bilirubin Total 0.5 mg/dL (0.2-1.0); CKMB Creatine Kinase MB < 1.0 ng/mL (0.3-3.6); Creatine Phosphokinase 106 U/L (39-308); Glucose Level 118 mg/dL (74-106); Lipase 275 U/L (73-393); Magnesium 2.2 mg/dL (1.8-2.4); NT PRO-BNP 136 pg/mL (<125); Potassium 3.4 mmol/L (3.5-5.1); Protein, Total 7.9 g/dL (6.4-8.2); Sodium Level 138 mmol/L (136-145); Troponin (Emerg Dept Use Only) < 0.02 ng/mL (0.0-0.045)
--- NOTE | 2019-11-09 20:57 | EDPHYS ---
Physician Documentation [facility] Name: Mariano Hoyos Age: 63 yrs Sex: Male : 1955 Arrival Date: 11/09/2019 Time: 18:39 Bed 13 Private MD: ED Physician Shivam Lagos HPI: 11/08 19:50 This 63 yrs old Male presents to ER via Ambulatory with complaints of R/O mh7 COVID. 19:50 The patient or guardian reports cough, that is intermittent, with no sputum, difficulty mh7 breathing. Onset: The symptoms/episode began/occurred 4 day(s) ago. Severity of symptoms: At their worst the symptoms were moderate, yesterday, in the emergency department the symptoms have improved, moderately. Modifying factors: The symptoms are alleviated by nothing, the symptoms are aggravated by nothing. Associated signs and symptoms: Pertinent positives: fever, Pertinent negatives: chest pain, diarrhea, ear ache, nausea, rhinorrhea, sore throat, vomiting. Historical: - Allergies: 18:55 No Known Allergies; sv - PMHx: 18:55 High Cholesterol; Hypertension; sv - Immunization history:: Adult Immunizations. - Social history:: Smoking status: Patient denies any tobacco usage or history of. ROS: 19:50 Eyes: Negative for injury, pain, redness, and discharge, ENT: Negative for injury, mh7 pain, and discharge, Neck: Negative for injury, pain, and swelling, Cardiovascular: Negative for chest pain, palpitations, and edema, Abdomen/GI: Negative for abdominal pain, nausea, vomiting, diarrhea, and constipation, Back: Negative for injury and pain, : Negative for injury, bleeding, discharge, and swelling, MS/Extremity: Negative for injury and deformity, Skin: Negative for injury, rash, and discoloration, Neuro: Negative for headache, weakness, numbness, tingling, and seizure, Psych: Negative for depression, anxiety, suicide ideation, homicidal ideation, and hallucinations, Allergy/Immunology: Negative for hives, rash, and allergies, Endocrine: Negative for neck swelling, polydipsia, polyuria, polyphagia, and marked weight changes, Hematologic/Lymphatic: Negative for swollen nodes, abnormal bleeding, and unusual bruising. Exam: 19:50 Constitutional: This is a well developed, well nourished patient who is awake, alert, mh7 and in no acute distress. Head/Face: Normocephalic, atraumatic. Eyes: Pupils equal round and reactive to light, extra-ocular motions intact. Lids and lashes normal. Conjunctiva and sclera are non-icteric and not injected. Cornea within normal limits. Periorbital areas with no swelling, redness, or edema. Neck: Trachea midline, no thyromegaly or masses palpated, and no cervical lymphadenopathy. Supple, full range of motion without nuchal rigidity, or vertebral point tenderness. No Meningismus. Chest/axilla: Normal chest wall appearance and motion. Nontender with no deformity. No lesions are appreciated. Cardiovascular: Regular rate and rhythm with a normal S1 and S2. No gallops, murmurs, or rubs. Normal PMI, no JVD. No pulse deficits. 19:50 Abdomen/GI: Soft, non-tender, with normal bowel sounds. No distension or tympany. No guarding or rebound. No evidence of tenderness throughout. Back: No spinal tenderness. No costovertebral tenderness. Full range of motion. Skin: Warm, dry with normal turgor. Normal color with no rashes, no lesions, and no evidence of cellulitis. MS/ Extremity: Pulses equal, no cyanosis. Neurovascular intact. Full, normal range of motion. Neuro: Awake and alert, GCS 15, oriented to person, place, time, and situation. Cranial nerves II-XII grossly intact. Motor strength 5/5 in all extremities. Sensory grossly intact. Cerebellar exam normal. Normal gait. Psych: Awake, alert, with orientation to person, place and time. Behavior, mood, and affect are within normal limits. 19:50 Respiratory: the patient does not display signs of respiratory distress, Respirations: prolonged exhalation, that is mild, intercostal retractions, are absent, tachypnea, is not appreciated, Breath sounds: rhonchi, that are mild, are scattered, Respiratory rate: 18 Vital Signs: 18:56 BP 109 / 62; Pulse 87; Resp 18; Temp 98.7; Pulse Ox 87% on R/A; Weight 90.72 kg; Height sv 5 ft. 10 in. (177.80 cm); 19:53 BP 120 / 67; Pulse 78; Resp 18; Pulse Ox 95% on 3.5 lpm NC; mg2 22:30 BP 128 / 73; Pulse 78; Resp 18; Pulse Ox 92% on 3.5 lpm NC; mg2 18:56 Body Mass Index 28.70 (90.72 kg, 177.80 cm) sv MDM: 19:40 Patient medically screened. mh7 20:53 Differential Diagnosis: Obstructed Airway Bronchitis Influenza Upper Respiratory mh7 Infection Viral Syndrome Pneumonia Other COVID 19. Data reviewed: vital signs, nurses notes, lab test result(s), cardiac enzymes, CBC, electrolytes, EKG, radiologic studies, plain films. Data interpreted: residential monitor: rate is 78 beats/min, rhythm is normal sinus rhythm, regular, Interpretation: normal rate, normal rhythm, Pulse oximetry: on 4L(s) per nasal canula, is 95 %. Interpretation: acceptable, Plan: O2 by NC applied. Counseling: I had a detailed discussion with the patient and/or guardian regarding: the historical points, exam findings, and any diagnostic results supporting the discharge/admit diagnosis, lab results, radiology results, the need for further work-up and treatment in the hospital. 11/08 19:25 Order name: Blood Culture Adult (2) mg2 11/08 19:25 Order name: BMP; Complete Time: 20:40 mg2 11/08 19:25 Order name: CBC with Diff; Complete Time: 20:40 mg2 11/08 19:25 Order name: Ckmb; Complete Time: 20:40 mg2 11/08 19:25 Order name: CPK; Complete Time: 20:40 mg2 11/08 19:25 Order name: D-Dimer; Complete Time: 20:40 mg2 11/08 19:25 Order name: Hepatic Function; Complete Time: 20:40 mg2 11/08 19:25 Order name: Lipase; Complete Time: 20:40 mg2 11/08 19:25 Order name: Magnesium; Complete Time: 20:40 mg2 11/08 19:25 Order name: NT PRO-BNP; Complete Time: 20:40 mg2 11/08 19:25 Order name: PT-INR; Complete Time: 20:40 mg2 11/08 19:25 Order name: Ptt, Activated; Complete Time: 20:40 mg2 11/08 19:25 Order name: Troponin (emerg Dept Use Only); Complete Time: 20:40 mg2 11/08 19:49 Order name: Lactate; Complete Time: 20:40 mg2 11/08 19:25 Order name: EKG; Complete Time: 19:26 mg2 11/08 19:25 Order name: Cardiac monitoring; Complete Time: :50 mg2 11/08 19:25 Order name: EKG - Nurse/Tech; Complete Time: :50 mg2 11/08 19:25 Order name: IV Saline Lock; Complete Time: :50 mg2 11/08 19:25 Order name: Labs collected and sent; Complete Time: :50 mg2 11/08 19:25 Order name: O2 Per Protocol; Complete Time: :50 mg2 11/08 19:25 Order name: O2 Sat Monitoring; Complete Time: :50 mg2 11/08 19:25 Order name: XRAY Chest (1 view); Complete Time: 20:40 mg2 11/08 19:49 Order name: Flu; Complete Time: 06:42 mg2 11/08 19:49 Order name: COVID-19 mg2 11/08 22:24 Order name: CONS Physician Consult EDMS Administered Medications: Discontinued: NS 0.9% 1000 ml IV at 125 ml/hr continuous 21:21 Drug: Rocephin - (cefTRIAXone) 1 grams Route: IVPB; Infused Over: 30 mins; Site: left [facility] antecubital; 21:30 Follow up: Response: No adverse reaction; IV Status: Completed infusion mg2 21:21 Drug: AZITHromycin 500 mg Route: IVPB; Infused Over: 1 hrs; Site: left antecubital; mg2 22:20 Follow up: Response: No adverse reaction; IV Status: Completed infusion; IV Intake: mg2 250ml 21:21 Drug: NS 0.9% 1000 ml Route: IV; Rate: 125 ml/hr; Site: left antecubital; mg2 Disposition: 11/09/19 20:55 Hospitalization ordered by Judson Enriquez for Inpatient Admission. Preliminary diagnosis are Pneumonia, Hypoxia. - Bed requested for Telemetry/MedSurg (Inpatient). - Status is Inpatient Admission. mg2 - Condition is Stable. - Problem is new. - Symptoms have improved. Signatures: Dispatcher [employer] EDMS Chioma Baeza RN RN sv Garcia, Cindy, RN RN Primitivo Siddiqui RN RN [facility] Shivam Lagos MD MD mh7 Corrections: (The following items were deleted from the chart) 23:20 20:55 Hospitalization Ordered by Judson Enriquez for Inpatient Admission. Preliminary cg diagnosis is Pneumonia; Hypoxia. Bed requested for Telemetry/MedSurg (Inpatient). Status is Inpatient Admission. Condition is Stable. Problem is new. Symptoms have improved. [facility] 23:55 23:20 11/09/2019 20:55 Hospitalization Ordered by Judson Enriquez for Inpatient mg2 Admission. Preliminary diagnosis is Pneumonia; Hypoxia. Bed requested for Telemetry/MedSurg (Inpatient). Status is Inpatient Admission. Condition is Stable. Problem is new. Symptoms have improved. cg
--- NOTE | 2019-11-09 20:57 | ER ---
Nurse's Notes [facility] Name: Mariano Hoyos Age: 63 yrs Sex: Male : 1955 Arrival Date: 11/09/2019 Time: 18:39 Bed 13 Private MD: Diagnosis: Pneumonia;Hypoxia Presentation: 11/08 18:52 Chief complaint: Patient states: cough, congestion, SOB, chills x 4 days. Coronavirus sv screen: Surgical mask placed on patient. Patient moved to private room, placed in contact and droplet isolation with eye protection until further assessment. Patient reports a cough. Patient reports shortness of breath or difficulty breathing. Patient reports a measured and/or subjective temperature greater than 100.4F. Patient denies travel on a cruise ship or to a country the [facility] currently lists as an affected area. Patient reports contact with known and/or suspected case of COVID-19. Prior COVID test collected on: 11/08/19 results are pending. Ebola Screen: No symptoms or risks identified at this time. Risk Assessment: Do you want to hurt yourself or someone else? Patient reports no desire to harm self or others. Onset of symptoms was November 05, 2019. 18:52 Method Of Arrival: Ambulatory sv 18:52 Acuity: LESLIE 2 sv 18:52 Initial Sepsis Screen: Does the patient meet any 2 criteria? No. Patient's initial sv sepsis screen is negative. Does the patient have a suspected source of infection? No. Patient's initial sepsis screen is negative. Triage Assessment: 18:56 General: Appears in no apparent distress. comfortable, Behavior is calm, cooperative, sv appropriate for age. Neuro: Level of Consciousness is awake, alert, obeys commands, Oriented to person, place, time, situation, Gait is steady. Respiratory: Respiratory effort is even, unlabored. Historical: - Allergies: 18:55 No Known Allergies; sv - PMHx: 18:55 High Cholesterol; Hypertension; sv - Immunization history:: Adult Immunizations. - Social history:: Smoking status: Patient denies any tobacco usage or history of. Screenin:53 Abuse screen: Denies threats or abuse. Denies injuries from another. Nutritional mg2 screening: No deficits noted. Tuberculosis screening: No symptoms or risk factors identified. Fall Risk IV access (20 points). Assessment: 19:05 Reassessment: Pt placed on O2 \T\ 3.5 L per NC. Placed on continuous pulse ox. Informed sv Primitivo COOPER. 19:51 General: Appears in no apparent distress. comfortable, Behavior is calm, cooperative. mg2 Pain: Denies pain. Neuro: Level of Consciousness is awake, alert, obeys commands, Oriented to person, place, time, situation. Cardiovascular: Capillary refill < 3 seconds Patient's skin is warm and dry. Respiratory: Airway is patent Respiratory effort is even, unlabored, Respiratory pattern is regular, symmetrical, low oxygen saturation- 88% RA. Respiratory: Reports cough that is. GI: No signs and/or symptoms were reported involving the gastrointestinal system. : No signs and/or symptoms were reported regarding the genitourinary system. EENT: Reports nasal congestion. Derm: Skin is intact, is healthy with good turgor, Skin is pink, warm \T\ dry. normal. Musculoskeletal: Circulation, motion, and sensation intact. Capillary refill < 3 seconds. 21:46 Reassessment: Patient appears in no apparent distress at this time. Patient and/or mg2 family updated on plan of care and expected duration. Pain level reassessed. Patient is alert, oriented x 3, equal unlabored respirations, skin warm/dry/pink. dr Enriquez came and assessed the patient. agreed for hospitalization. 22:31 Reassessment: Patient appears in no apparent distress at this time. Patient and/or mg2 family updated on plan of care and expected duration. Pain level reassessed. Patient is alert, oriented x 3, equal unlabored respirations, skin warm/dry/pink. Vital Signs: 18:56 BP 109 / 62; Pulse 87; Resp 18; Temp 98.7; Pulse Ox 87% on R/A; Weight 90.72 kg; Height sv 5 ft. 10 in. (177.80 cm); 19:53 BP 120 / 67; Pulse 78; Resp 18; Pulse Ox 95% on 3.5 lpm NC; mg2 22:30 BP 128 / 73; Pulse 78; Resp 18; Pulse Ox 92% on 3.5 lpm NC; mg2 18:56 Body Mass Index 28.70 (90.72 kg, 177.80 cm) sv ED Course: 18:39 Patient arrived in ED. ag5 18:52 Arm band placed on. sv 18:55 Triage completed. sv 19:02 Shivam Lagos MD is Attending Physician. [facility] 19:09 Primitivo Siddiqui, ALLISON is Primary Nurse. mg2 19:30 Inserted saline lock: 20 gauge in left antecubital area, using aseptic technique. Blood mg2 collected. 19:53 Patient has correct armband on for positive identification. product development assistant on. Pulse mg2 ox on. NIBP on. Door closed. 19:53 No provider procedures requiring assistance completed. mg2 20:01 Flu and/or RSV swab sent to lab. covid swab sent to lab. mg2 20:14 Notified ED physician of a critical lab result(s). elevated D-Dimer. sg 20:15 XRAY Chest (1 view) In Process Unspecified. EDMS 20:55 Judson Enriquez is Hospitalizing Provider. [facility] 23:42 Patient admitted, IV remains in place. mg2 Administered Medications: Discontinued: NS 0.9% 1000 ml IV at 125 ml/hr continuous 21:21 Drug: Rocephin - (cefTRIAXone) 1 grams Route: IVPB; Infused Over: 30 mins; Site: left mg2 antecubital; 21:30 Follow up: Response: No adverse reaction; IV Status: Completed infusion mg2 21:21 Drug: AZITHromycin 500 mg Route: IVPB; Infused Over: 1 hrs; Site: left antecubital; mg2 22:20 Follow up: Response: No adverse reaction; IV Status: Completed infusion; IV Intake: mg2 250ml 21:21 Drug: NS 0.9% 1000 ml Route: IV; Rate: 125 ml/hr; Site: left antecubital; mg2 Intake: 22:20 IV: 250ml; Total: 250ml. mg2 Outcome: 20:55 Decision to Hospitalize by Provider. [facility] 23:42 Admitted to Tele accompanied by nurse, via wheelchair, room 403, with oxygen, with mg2 chart, Report called to ALLISON Bronson 23:42 Condition: stable 23:42 Instructed on the need for admit, Demonstrated understanding of instructions. 23:55 Patient left the ED. mg2 Signatures: Dispatcher [employer] EDNV Chioma Baeza RN RN Patrice Iyer RN RN Primitivo Siddiqui RN RN [facility] [place], eTresa ag5 Shivam Lagos MD MD [facility] Corrections: (The following items were deleted from the chart) 19:00 18:52 Acuity: LESLIE 4 sv sv
[2019-11-09] MEDS ORDERED: NA CHLORIDE 0.9% 1,000 ML ONE (21:15)
[2019-11-09] MEDS ORDERED: CEFTRIAXONE/SWI 1gm 1 GM/10 ML SYR ONE (21:15)
[2019-11-09] MEDS ORDERED: NA CHLORIDE 0.9% 250 ML ONE (21:15)
[2019-11-09] MEDS ORDERED: AZITHROMYCIN 500 MG INJ IVPB ONE (21:16)
--- NOTE | 2019-11-09 22:21 | P.HP ---
Certification for Inpatient Patient admitted to: Observation With expected LOS: <2 Midnights Practitioner: I am a practitioner with admitting privileges, knowledge of patient current condition, hospital course, and medical plan of care. Services: Services provided to patient in accordance with Admission requirements found in Title 42 Section 412.3 of the Code of Federal Regulations Patient History Date of Service: 11/09/19 Reason for admission: Shortness of breath and cough History of Present Illness: 63-year-old man with a history of hypertension presented emergency department with a 4 day history of cough, fever, diarrhea, loss of appetite and shortness of breath. Patient states his daughter who is a nurse recently tested positive for COVID 19. His chest x-ray demonstrated bilateral infiltrates. Patient was desaturating to 87% on room air and needed oxygen in the ED. His D-dimer is elevated. Blood work shows elevated creatinine and possible acute renal failure. Patient is hospitalized for further management. Allergies No Known Allergies Allergy (Verified 12/03/15 17:49) Home Medications: Albuterol Inhaler [Ventolin Inhaler] 2 puff IH Q6H PRN 12/03/15 Amlodipine Besylate [Norvasc] 10 mg PO DAILY 12/03/15 Codeine/APAP [Tylenol W/Codeine #3 tab] 1 tab PO Q6HP PRN 12/03/15 Colchicine [Colcrys] 0.6 mg PO DAILY 12/03/15 Finasteride [Proscar] 5 mg PO DAILY 12/03/15 Hydralazine [Apresoline] 25 mg PO BID 12/03/15 Metoprolol Succinate [Toprol Xl] 50 mg PO DAILY 12/03/15 Sildenafil Citrate [Viagra] 100 mg PO ONCE 12/03/15 Simvastatin [Zocor] 80 mg PO DAILY 12/03/15 Tamsulosin [Flomax] 0.4 mg PO BEDTIME 12/03/15 allopurinoL [Zyloprim] 300 mg PO DAILY 12/03/15 - Past Medical/Surgical History -: Hypertension -: Aortic aneurysm surgery -: Back surgery - Family History Family History: Reviewed- Non-Contributory - Social History Smoking Status: Never smoker Alcohol use: Yes CD- Drugs: No Review of Systems Other: Except as documented, all other systems reviewed and negative. Physical Examination - Physical Exam General: Alert, In no apparent distress, Oriented x3 HEENT: Mucous membr. moist/pink, Sclerae nonicteric Neck: Supple, JVD not distended Respiratory: Clear to auscultation bilaterally, Normal air movement Cardiovascular: No edema, Regular rate/rhythm, Normal S1 S2 Capillary refill: <2 Seconds Gastrointestinal: Normal bowel sounds, Soft and benign, No tenderness Musculoskeletal: No swelling, No erythema Integumentary: No rashes Neurological: Normal speech, Normal strength at 5/5 x4 extr, Cranial nerves 3-12 intact - Studies Laboratory Data (last 24 hrs) 11/09/19 19:30: PT 13.1 H, INR 1.11, APTT 37.6 H 11/09/19 19:30: WBC 7.8, Hgb 13.8, Hct 40.9, Plt Count 175 11/09/19 19:30: Sodium 138, Potassium 3.4 L, BUN 25 H, Creatinine 1.61 H, Glucose 118 H, Magnesium 2.2, Total Bilirubin 0.5, AST 98 H, ALT 56, Alkaline Phosphatase 157 H, Lipase 275 Microbiology Data (last 24 hrs): 11/09/19 19:45 Nasopharnyx Influenza Type A Antigen Screen - Final 11/09/19 19:45 Nasopharnyx Influenza Type B Antigen Screen - Final Assessment and Plan - Problems (Diagnosis) (1) Viral pneumonia Current Visit: Yes Status: Acute (2) Acute viral disease Current Visit: Yes Status: Acute (3) Hypertension Current Visit: Yes Status: Acute (4) Acute respiratory failure with hypoxia Current Visit: Yes Status: Acute (5) Elevated d-dimer Current Visit: Yes Status: Acute - Plan Place under observation. Supportive measures with IV hydration IV dexamethasone IV Zithromax Supplemental oxygen. Home oxygen qualification. Elevated D-dimer could be related to COVID infection. Will hydrate with IV fluids and obtain CTA thorax to rule out pulmonary embolism once serum creatinine improve. Follow COVID 19 test result Droplet isolation. Continue home antihypertensive regimen. - Advance Directives Does patient have a Living Will: No Does patient have a Durable POA for Healthcare: No
[2019-11-10] MEDS ORDERED: NA CHLORIDE 0.9% 1,000 ML IV SCH (00:17)
[2019-11-10] MEDS ORDERED: POTASSIUM CL SA 10 MEQ TAB PO ONE (00:48)
[2019-11-10] MEDS: ACETAMINOPHEN 500 MG TAB PO PRN ×3 (01:08→22:09)
[2019-11-10] MEDS: dexAMETHasone 10 MG/ML VIAL IV SCH ×3 (01:08→17:46)
[2019-11-10 02:30] LABS: Urine Appearance CLEAR; Urine Bilirubin NEGATIVE (NEG); Urine Blood TRACE (NEG); Urine Color YELLOW; Urine Glucose NEGATIVE (NEG); Urine Protein 3+ (NEG); Urine Specific Gravity 1.025 (1.005-1.030); Urine Urobilinogen 0.2 mg/dL (0.2-1.0)
[2019-11-10 02:50] LABS: Urine Microscopic Reflex ORDER UMIC
[2019-11-10 02:58] LABS: Urine Bacteria 20-50 /HPF (NONE SEEN); Urine Culture Reflex Order REFLEXED; Urine Mucus 2+ /HPF (NONE SEEN); Urine RBC <5 /HPF (NONE SEEN)
[2019-11-10 06:57] LABS: Protime INR 1.15
[2019-11-10 06:58] LABS: Absolute Lymphocytes (CBC) 0.6 K/uL (0.7-4.9); Basophils % 0.3 % (0-1.3); Hematocrit 39.6 % (39.6-49.0); Lymphocytes % 7.5 % (15.3-44.8); RBC Red Blood Cell Count 4.38 M/uL (4.33-5.43)
[2019-11-10 07:07] LABS: Magnesium 2.4 mg/dL (1.8-2.4); Phosphorus 2.6 mg/dL (2.5-4.9); Potassium 4.3 mmol/L (3.5-5.1)
--- NOTE | 2019-11-10 08:58 | P.PN ---
Subjective Date of Service: 11/10/19 Chief Complaint: Shortness of breath and cough Patient having coughing spells. No fever recorded. He tested positive for influenza B. Physical Examination - Vital Signs Temperature: 98.2 F Blood Pressure: 130/70 Pulse: 89 Respirations: 24 Pulse Ox (%): 92 - Physical Exam General: Alert, In no apparent distress, Oriented x3 HEENT: Mucous membr. moist/pink Neck: JVD not distended Respiratory: Clear to auscultation bilaterally, Normal air movement Cardiovascular: No edema, Regular rate/rhythm, Normal S1 S2 Gastrointestinal: Normal bowel sounds, Soft and benign, Non-distended Musculoskeletal: No swelling, No erythema Integumentary: No rashes Neurological: Normal strength at 5/5 x4 extr - Studies Laboratory Data (last 24 hrs) 11/09/19 19:30: PT 13.1 H, INR 1.11, APTT 37.6 H 11/09/19 19:30: WBC 7.8, Hgb 13.8, Hct 40.9, Plt Count 175 11/09/19 19:30: Sodium 138, Potassium 3.4 L, BUN 25 H, Creatinine 1.61 H, Glucose 118 H, Magnesium 2.2, Total Bilirubin 0.5, AST 98 H, ALT 56, Alkaline Phosphatase 157 H, Lipase 275 Microbiology Data (last 24 hrs): 11/09/19 19:45 Nasopharnyx Influenza Type A Antigen Screen - Final 11/09/19 19:45 Nasopharnyx Influenza Type B Antigen Screen - Final Assessment And Plan - Current Problems (Diagnosis) (1) Viral pneumonia Current Visit: Yes Status: Acute (2) Acute viral disease Current Visit: Yes Status: Acute (3) Hypertension Current Visit: Yes Status: Acute (4) Acute respiratory failure with hypoxia Current Visit: Yes Status: Acute (5) Elevated d-dimer Current Visit: Yes Status: Acute (6) Influenza B Current Visit: Yes Status: Acute - Plan Continue Supportive measures with IV hydration On IV dexamethasone and IV Zithromax Supplemental oxygen. Home oxygen qualification. Elevated D-dimer could be related to COVID infection. Serum creatinine has improved. Obtain CTA thorax to rule out pulmonary embolus Follow COVID 19 test result. Pulmonary consult Droplet isolation.
[2019-11-10] MEDS ORDERED: ENOXAPARIN 40 MG/0.4 ML SQ SCH (09:00)
[2019-11-10] MEDS ORDERED: FUROSEMIDE 20 MG/ 2ML VIAL IV SCH (09:59)
--- NOTE | 2019-11-10 10:00 | P.CNS ---
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 Chief Complaint: Shortness of breath and cough History of Present Illness: Patient is 63 years of age with a history of hypertension admitted with a 4 day history of cough fever diarrhea shortness of breath he was recently exposed to nurse to was tested positive in bilateral infiltrates little hypoxic Allergies No Known Allergies Allergy (Verified 11/10/19 00:41) Home Medications: Albuterol Inhaler [Ventolin Inhaler] 2 puff IH Q4H PRN 12/03/15 Amlodipine Besylate [Norvasc] 10 mg PO DAILY 12/03/15 Codeine/APAP [Tylenol W/Codeine #3 tab] 1 tab PO Q4HP PRN 12/03/15 Hydralazine [Apresoline] 25 mg PO BID 12/03/15 Metoprolol Succinate [Toprol Xl] 50 mg PO BID 12/03/15 allopurinoL [Zyloprim] 300 mg PO DAILY 12/03/15 Ezetimibe/Simvastatin [Ezetimibe-Simvastatin 10-80 mg] 1 tab PO DAILY 11/10/19 Indomethacin 1 cap PO TID 11/10/19 Naproxen [Naprosyn] 1 tab PO Q12H PRN 11/10/19 - Past Medical/Surgical History Diabetic: No -: Hypertension -: highe cholesterol -: Aortic aneurysm surgery -: Back surgery -: prostate surgery - Social History Alcohol use: Yes CD- Drugs: No Caffeine use: Yes Place of Residence: Home Review of Systems General: Weakness Respiratory: Cough, Shortness of Breath Gastrointestinal: Abdominal Pain Physical Examination Temp Pulse Resp BP Pulse Ox 98.2 F 89 24 H 130/70 92 11/10/19 08:58 11/10/19 08:58 11/10/19 08:58 11/10/19 08:58 11/10/19 08:58 Laboratory Data (last 24 hrs) 11/09/19 19:30: PT 13.1 H, INR 1.11, APTT 37.6 H 11/09/19 19:30: WBC 7.8, Hgb 13.8, Hct 40.9, Plt Count 175 11/09/19 19:30: Sodium 138, Potassium 3.4 L, BUN 25 H, Creatinine 1.61 H, Glucose 118 H, Magnesium 2.2, Total Bilirubin 0.5, AST 98 H, ALT 56, Alkaline Phosphatase 157 H, Lipase 275 - Problems (1) Pneumonia due to human coronavirus Current Visit: Yes Status: Acute Plan: Patient is 63 years of age admitted having respiratory GI symptoms he is pneumonia suspect from caballero virus recently exposed Dc IV fluids continue with steroids Dc Zithromax continue with Decadron vital signs stable small dose of Lasix increase Lovenox dose
[2019-11-10 10:26] LABS: Platelet Estimate ADEQ; Urine White Blood Cell Casts OK
[2019-11-10 10:27] LABS: Blood Morphology Comment NOT SEEN (NOT SEEN)
[2019-11-10] MEDS ORDERED: NA CHLORIDE 0.9% 500 ML IV ONE (11:36)
--- NOTE | 2019-11-10 13:23 | P.CNS ---
Reason for Consult: VERONICA Requesting Physician: robby tao Chief Complaint: Shortness of breath and cough History of Present Illness: Pt is a 63 y/o female with past medical hx of HTN, HLD, presenting with complaints of sob and cough with known covid exposure. Pt stated symptoms star [facility] 4 days ago where he had audible wheezing, denies any orthopnea, pnd, fevers or chills. Pt presented due to progressiveness of symptoms as he taught he may have COVID. On admission pt noted to have VERONICA. Renal has been consulted for management of VERONICA. Final COVID tests are negative Allergies No Known Allergies Allergy (Verified 11/10/19 00:41) Home Medications: Albuterol Inhaler [Ventolin Inhaler] 2 puff IH Q4H PRN 12/03/15 Amlodipine Besylate [Norvasc] 10 mg PO DAILY 12/03/15 Codeine/APAP [Tylenol W/Codeine #3 tab] 1 tab PO Q4HP PRN 12/03/15 Hydralazine [Apresoline] 25 mg PO BID 12/03/15 Metoprolol Succinate [Toprol Xl] 50 mg PO BID 12/03/15 allopurinoL [Zyloprim] 300 mg PO DAILY 12/03/15 Ezetimibe/Simvastatin [Ezetimibe-Simvastatin 10-80 mg] 1 tab PO DAILY 11/10/19 Indomethacin 1 cap PO TID 11/10/19 Naproxen [Naprosyn] 1 tab PO Q12H PRN 11/10/19 - Past Medical/Surgical History Diabetic: No -: Hypertension -: highe cholesterol -: Aortic aneurysm surgery -: Back surgery -: prostate surgery - Social History Alcohol use: Yes CD- Drugs: No Caffeine use: Yes Place of Residence: Home Review of Systems General: Weakness Eyes: Pain, Vision Change, Conjunctivae Inflammation, Eyelid Inflammation, Redness, Other, As per HPI, Unremarkable ENT: Ear Pain, Ear Discharge, Nose Pain, Nose Discharge, Nose Congestion, Mouth Pain, Mouth Swelling, Throat Pain, Throat Swelling, Other, As per HPI, Unremarkable Respiratory: Cough, Shortness of Breath Cardiovascular: Chest Pain Gastrointestinal: Nausea, Vomiting, Abdominal Pain, Diarrhea, Distention, No Distention, Constipation, Melena, Hematochezia, Other, As per HPI, Unremarkable Genitourinary: Dysuria, Frequency, Urgency, Incontinence, Hematuria, Retention, Other, As per HPI, Unremarkable Musculoskeletal: Atrophy, Neck Pain, Shoulder Pain, Arm Pain, Back Pain, Hand Pain, Leg Pain, Foot Pain, Pedal edema, Other, As per HPI, Unremarkable Integumentary: Rash, Jaundice, Bruising, Other, As per HPI, Unremarkable Neurological: Weakness, Numbness, Incoordination, Change in Speech, Confusion, Seizures, Other, As per HPI, Unremarkable Physical Examination Temp Pulse Resp BP Pulse Ox 98.2 F 89 24 H 130/70 92 11/10/19 08:58 11/10/19 08:58 11/10/19 08:58 11/10/19 08:58 11/10/19 08:58 General: Alert, In no apparent distress HEENT: Atraumatic, PERRLA, Mucous membr. moist/pink, EOMI, Sclerae nonicteric Neck: Supple, 2+ carotid pulse no bruit, No LAD, Without JVD or thyroid abnormality Respiratory: Diminished Cardiovascular: Regular rate/rhythm, Normal S1 S2 Capillary refill: <2 Seconds Musculoskeletal: No tenderness Integumentary: No rashes Neurological: Normal gait, Normal speech, Normal tone, Normal affect Laboratory Data (last 24 hrs) 11/09/19 19:30: PT 13.1 H, INR 1.11, APTT 37.6 H 11/09/19 19:30: WBC 7.8, Hgb 13.8, Hct 40.9, Plt Count 175 11/09/19 19:30: Sodium 138, Potassium 3.4 L, BUN 25 H, Creatinine 1.61 H, Glucose 118 H, Magnesium 2.2, Total Bilirubin 0.5, AST 98 H, ALT 56, Alkaline Phosphatase 157 H, Lipase 275 Conclusions/Impression: Assessment and Plan VERONICA most likely prerenal VERONICA Continue with IV hydration Discontinue lasix Strict i/o daily weight Monitor for contrast kidney injury. Continue IV hydration for 24hrs post CT Avoid megan-i, nsaids, fleece enemas. Hold patients home naproxen Hypertension Controlled. Continue home meds Hypokalemia Improved.
--- NOTE | 2019-11-10 15:02 | RAD REPORT ---
EXAM DESCRIPTION: CT - Chest For Pe Angio - 11/10/2019 1:59 pm CLINICAL HISTORY: r/o PE COMPARISON: Chest Single View dated 11/09/2019 TECHNIQUE: Dynamically enhanced 3 mm thick images of the chest were obtained during administration o f approximately 150mL Isovue 370 IV contrast. Coronal and oblique MIP reconstruction images were gene rated and reviewed. Exam utilizes a protocol to evaluate the pulmonary arterial tree. All CT scans are performed using dose optimization technique as appropriate and may include automated exposure control or mA/KV adjustment according to patient size. FINDINGS: No pulmonary emboli are identified. The aorta as imaged shows no acute or suspicious finding. No pericardial thickening or effusion. Numerous ground-glass opacities are scattered throughout both lung mata primarily in a peripheral d istribution. This is a pattern well described with COVID-19 pneumonia. Provided history indicates neg ative COVID-19 test. Non COVID pneumonia is still a possibility. Pattern is not typical for failure o r volume overload. No pleural effusion or pleural thickening. No mediastinal or hilar suspicious masses. No chest wall masses or abnormal axillary lymphadenopathy. IMPRESSION: No pulmonary emboli identified. Bilateral ground-glass opacification throughout both lung mata. This a pattern well described with COVID-19 pneumonia no provided history indicates a negative chest. Non COVID viral pneumonia would be possible as well. Noninfectious alveolar edema would be possible t jono this is not a classic presentation.
[2019-11-10] MEDS: ENOXAPARIN 30 MG/0.3 ML SQ SCH (20:09)
[2019-11-10] MEDS ORDERED: AZITHROMYCIN IV 500 MG in NA CHLORIDE 0.9% 250 ML IVPB SCH (21:00)
[2019-11-11] MEDS: dexAMETHasone 10 MG/ML VIAL IV SCH ×3 (01:03→17:07)
[2019-11-11 04:58] VITALS: BMI 29.1
[2019-11-11 06:55] LABS: Absolute Lymphocytes (CBC) 0.6 K/uL (0.7-4.9); Basophils % 0.7 % (0-1.3); Hematocrit 38.6 % (39.6-49.0); Lymphocytes % 8.1 % (15.3-44.8); MPV 9.2 fL (7.6-11.3)
[2019-11-11 07:16] LABS: Potassium 3.9 mmol/L (3.5-5.1)
--- NOTE | 2019-11-11 08:56 | P.PN ---
Subjective Date of Service: 11/11/19 Chief Complaint: Shortness of breath and cough Patient has been coughing occasionally. He he is able to ambulate in his room. I am told his COVID 19 test is negative. Physical Examination - Vital Signs Temperature: 97.1 F Blood Pressure: 138/68 Pulse: 86 Respirations: 16 Pulse Ox (%): 97 - Physical Exam General: Alert, In no apparent distress Respiratory: Clear to auscultation bilaterally, Normal air movement Cardiovascular: No edema, Regular rate/rhythm, Normal S1 S2 Gastrointestinal: Normal bowel sounds, Soft and benign, Non-distended Musculoskeletal: No swelling, No erythema Integumentary: No rashes Neurological: Other (Nonfocal) - Studies Laboratory Data (last 24 hrs) 11/10/19 05:30: WBC 8.2, Hgb 13.6, Hct 39.6, Plt Count 181 Assessment And Plan - Current Problems (Diagnosis) (1) Viral pneumonia Current Visit: Yes Status: Acute (2) Acute viral disease Current Visit: Yes Status: Acute (3) Hypertension Current Visit: Yes Status: Acute (4) Acute respiratory failure with hypoxia Current Visit: Yes Status: Acute (5) Elevated d-dimer Current Visit: Yes Status: Acute (6) Influenza B Current Visit: Yes Status: Acute - Plan COVID 19 test result could be false negative. Viral pneumonia secondary to COVID vs Influenza B. Continue Supportive measures with IV hydration Continue steroid. Pulmonary input appreciated. Wean oxygen as tolerated. Home oxygen qualification. CTA thorax negative for pulmonary embolism. Droplet isolation.
[2019-11-11] MEDS ORDERED: POTASSIUM CL SA 10 MEQ TAB PO ONE (09:00)
[2019-11-11] MEDS: ENOXAPARIN 30 MG/0.3 ML SQ SCH ×2 (09:40→20:56)
--- NOTE | 2019-11-11 10:07 | P.PN ---
Subjective Date of Service: 11/11/19 Chief Complaint: Shortness of breath and cough Review of Systems General: Weakness Respiratory: Cough, Shortness of Breath Physical Examination - Vital Signs Temperature: 97.1 F Blood Pressure: 138/68 Pulse: 86 Respirations: 16 Pulse Ox (%): 97 - Physical Exam General: Alert, Cooperative - Studies Laboratory Data (last 24 hrs) 11/10/19 05:30: WBC 8.2, Hgb 13.6, Hct 39.6, Plt Count 181 Assessment & Plan - Problems (Diagnosis) (1) Pneumonia due to influenza Current Visit: Yes Status: Acute Plan: Patient has pneumonia due to influenza B infection as currently doing better desat on room air the continue to monitor his oxygen continue with steroids possible discharge tomorrow he still has a cough on an inhaler and prednisone
[2019-11-11] MEDS: ACETAMINOPHEN 500 MG TAB PO PRN (11:50)
--- NOTE | 2019-11-11 23:27 | P.PN ---
Subjective Date of Service: 11/12/19 Chief Complaint: Shortness of breath and cough Subjective: Improving Still coughing both overall feels better. Review of Systems General: Unremarkable Eyes: Unremarkable ENT: Unremarkable Respiratory: Cough, Shortness of Breath Cardiovascular: Unremarkable Gastrointestinal: Unremarkable Genitourinary: Unremarkable Musculoskeletal: Unremarkable Integumentary: Unremarkable Neurological: Unremarkable Physical Examination - Vital Signs Temperature: 97.8 F Blood Pressure: 145/72 Pulse: 84 Respirations: 18 Pulse Ox (%): 93 - Physical Exam General: Alert, In no apparent distress HEENT: Atraumatic, PERRLA, EOMI Neck: Supple, JVD not distended Respiratory: Expiratory wheezes Cardiovascular: Regular rate/rhythm, Normal S1 S2 Capillary refill: <2 Seconds Gastrointestinal: Normal bowel sounds, No tenderness Musculoskeletal: No tenderness Integumentary: No rashes Neurological: Normal speech, Normal tone, Normal affect Assessment & Plan Physician Review Additional Text: VERONICA most likely prerenal VERONICA; resolved May discontinue IVF since approx 12 to 24hr post contrast Resume lasix on discharge Strict i/o daily weight Avoid megan-i, nsaids, fleece enemas. Hold patients home naproxen Hypertension Controlled. Continue home meds Hypokalemia Improved.
[2019-11-12] MEDS: dexAMETHasone 10 MG/ML VIAL IV SCH ×2 (00:54→08:34)
[2019-11-12] MEDS: ENOXAPARIN 30 MG/0.3 ML SQ SCH (08:34)
[2019-11-12 12:14] VITALS: O2SAT 94
--- NOTE | 2019-11-12 13:54 | P.DS ---
Admission Date: 11/10/19 Discharge Date: 11/12/19 Primary Care Provider: Elsa Disposition: DC HOME/HOME HEALTH CARE Discharge Condition: GOOD Reason for Admission: Shortness of breath and cough Consultations: Nephrology-Dr. Saenz Pulmonary-Dr. Senior Procedures: CT Scan: FINDINGS: No pulmonary emboli are identified. The aorta as imaged shows no acute or suspicious finding. No pericardial thickening or effusion. Numerous ground-glass opacities are scattered throughout both lung mata primarily in a peripheral distribution. This is a pattern well described with COVID-19 pneumonia. Provided history indicates negative COVID-19 test. Non COVID pneumonia is still a possibility. Pattern is not typical for failure or volume overload. No pleural effusion or pleural thickening. No mediastinal or hilar suspicious masses. No chest wall masses or abnormal axillary lymphadenopathy. IMPRESSION: No pulmonary emboli identified. Bilateral ground-glass opacification throughout both lung mata. This a pattern well described with COVID-19 pneumonia no provided history indicates a negative chest. Non COVID viral pneumonia would be possible as well. Noninfectious alveolar edema would be possible though this is not a classic presentation. Medical Problem List: Shortness of breath secondary to bilateral viral pneumonia positive for influenza B Asthma exacerbation Acute renal insufficiency likely from dehydration Hypertension Hyperlipidemia Brief History of Present Illness: 63-year-old male presented to the emergency room with increasing shortness of breath. Patient was admitted for further evaluation. Patient found to have influenza B. Hospital Course: Patient presented with shortness of breath secondary to bilateral viral pneumonia with hypoxia. Patient with underlying asthma with suspected exacerbation as well. Patient was admitted for further evaluation and treatment. Patient seen by pulmonology. Patient required oxygen. Patient was also evaluated for COVID 19 infection. This was negative. The patient has done well but requires home oxygen at discharge. Pulmonology recommends no further intervention at this time. At discharge he will continue with home oxygen at 4 liters/minute to maintain oxygen saturations above 90%. Patient will also continue with Tamiflu 25 mg 1 pill twice daily for 3 more days. The patient will continue with Breo 1 puff daily and albuterol 2 puffs 3 times a day as needed for shortness of breath. The patient will also continue with prednisone 10 mg 1 pill twice daily for 7 days. Recommend to recheck chest x-ray in 2-4 weeks to monitor resolution. Oxygen will be weaned down appropriately with pulmonology. Recommend a follow up with pulmonology in 1 week to monitor his progress. Patient had mild acute renal insufficiency likely from dehydration. This has resolved. Recommend to follow up with his PCP to recheck lab-BMP in 1 week to monitors progress. Patient with hypertension. Blood pressures have remained stable. Medications adjusted during the course of his stay. At discharge recommend to continue Toprol-XL 50 mg 1 pill twice daily. Recommend to hold Norvasc 10 mg daily and hydralazine 25 mg 1 pill twice daily if blood pressure is less than 120 systolic. Recommend to monitor his blood pressure daily. Further adjustment can be done by his PCP. Patient with hyperlipidemia. At discharge recommend to hold medication for 1 week. This can be restarted after that time. Vital Signs/Physical Exam: Temp Pulse Resp BP Pulse Ox 97.6 F 77 20 143/78 H 95 11/12/19 08:00 11/12/19 08:00 11/12/19 08:00 11/12/19 08:00 11/12/19 08:00 General: Alert HEENT: Atraumatic Neck: Supple Respiratory: Clear to auscultation bilaterally, Normal air movement Cardiovascular: Normal pulses, Regular rate/rhythm Gastrointestinal: Normal bowel sounds, No tenderness, No masses, No rebound, No guarding Musculoskeletal: No erythema, No tenderness, No warmth Integumentary: No erythema, No warmth, No cyanosis Neurological: Normal speech, Normal strength at 5/5 x4 extr, Normal tone, Normal affect Laboratory Data at Discharge: WBC 7.5 K/uL (4.3-10.9) 11/11/19 06:40 Hgb 13.4 g/dL (13.6-17.9) L 11/11/19 06:40 Hct 38.6 % (39.6-49.0) L 11/11/19 06:40 Plt Count 204 K/uL (152-406) 11/11/19 06:40 PT 13.5 SECONDS (9.5-12.5) H 11/10/19 05:30 INR 1.15 11/10/19 05:30 APTT 37.6 SECONDS (24.3-36.9) H 11/09/19 19:30 Sodium 142 mmol/L (136-145) 11/12/19 04:45 Potassium 4.0 mmol/L (3.5-5.1) 11/12/19 04:45 BUN 20 mg/dL (7-18) H 11/12/19 04:45 Creatinine 1.01 mg/dL (0.55-1.3) 11/12/19 04:45 Glucose 158 mg/dL (74-106) H 11/12/19 04:45 Phosphorus 2.6 mg/dL (2.5-4.9) 11/10/19 05:30 Magnesium 2.4 mg/dL (1.8-2.4) 11/10/19 05:30 Total Bilirubin 0.5 mg/dL (0.2-1.0) 11/09/19 19:30 AST 98 U/L (15-37) H 11/09/19 19:30 ALT 56 U/L (12-78) 11/09/19 19:30 Alkaline Phosphatase 157 U/L (45-117) H 11/09/19 19:30 Lipase 275 U/L (73-393) 11/09/19 19:30 Home Medications: Codeine/APAP [Tylenol #3*] 1 tab PO Q4HP PRN 12/03/15 Metoprolol Succinate [Toprol Xl*] 50 mg PO BID 12/03/15 allopurinoL [Zyloprim*] 300 mg PO DAILY 12/03/15 Albuterol Inhaler [Ventolin Inhaler*] 2 puff IH Q4H PRN #1 11/12/19 Fluticasone/Vilanterol [Breo Ellipta 100-25 Mcg INH] 1 each IH DAILY #1 aer.pow.ba 11/12/19 Oseltamivir Phosphate [Tamiflu] 75 mg PO BID #6 capsule 11/12/19 predniSONE [Deltasone*] 10 mg PO BID #14 tab 11/12/19 New Medications: Fluticasone/Vilanterol [Breo Ellipta 100-25 Mcg INH] 1 each IH DAILY #1 aer.pow.ba predniSONE [Deltasone*] 10 mg PO BID #14 tab Oseltamivir Phosphate [Tamiflu] 75 mg PO BID #6 capsule Albuterol Inhaler [Ventolin Inhaler*] 2 puff IH Q4H PRN #1 PRN Reason: Shortness Of Breath Patient Discharge Instructions: 1. Recommend follow up with PCP in 1 week to follow up this hospitalization. 2. Patient presented with shortness of breath secondary to bilateral viral pneumonia with hypoxia. Patient with underlying asthma with suspected exacerbation as well. Patient was admitted for further evaluation and treatment. Patient seen by pulmonology. Patient required oxygen. Patient was also evaluated for COVID 19 infection. This was negative. The patient has done well but requires home oxygen at discharge. Pulmonology recommends no further intervention at this time. At discharge he will continue with home oxygen at 4 liters/minute to maintain oxygen saturations above 90%. Patient will also continue with Tamiflu 25 mg 1 pill twice daily for 3 more days. The patient will continue with Breo 1 puff daily and albuterol 2 puffs 3 times a day as needed for shortness of breath. The patient will also continue with prednisone 10 mg 1 pill twice daily for 7 days. Recommend to recheck chest x-ray in 2-4 weeks to monitor resolution. Oxygen will be weaned down appropriately with pulmonology. Recommend a follow up with pulmonology in 1 week to monitor his progress. 3. Patient had mild acute renal insufficiency likely from dehydration. This has resolved. Recommend to follow up with his PCP to recheck lab-BMP in 1 week to monitors progress. 4. Patient with hypertension. Blood pressures have remained stable. Medications adjusted during the course of his stay. At discharge recommend to continue Toprol-XL 50 mg 1 pill twice daily. Recommend to hold Norvasc 10 mg daily and hydralazine 25 mg 1 pill twice daily if blood pressure is less than 120 systolic. Recommend to monitor his blood pressure daily. Further adjustment can be done by his PCP. 5. Patient with hyperlipidemia. At discharge recommend to hold medication for 1 week. This can be restarted after that time. Diet: AHA Activity: Fall precautions Time spent managing pt's care (in minutes): 55
[2019-11-12 14:47] VITALS: BP 151/70; TEMP 98.1
[2019-11-12] MEDS ORDERED: dexAMETHasone 4 MG/ML VIAL IV SCH (17:00)
== END 2019-11-12 15:30 | disposition home or self-care (01) | DRG 193 ==
LOC: ER 18:35 → ERHOLD 22:22 → 4TH 23:42 → OBSVTOIN 11-10 14:02
PROVIDERS: ADMIT Internal Medicine; ATTEND Internal Medicine
DX: J11.08 Influenza due to unidentified influenza virus with specified pneumonia (principal); J96.01 Acute respiratory failure with hypoxia; N17.9 Acute kidney failure, unspecified; J45.901 Unspecified asthma with (acute) exacerbation; J12.9 Viral pneumonia, unspecified; E87.6 Hypokalemia; I10 Essential (primary) hypertension; E78.5 Hyperlipidemia, unspecified; Z20.828 Contact with and (suspected) exposure to other viral communicable diseases
CPT/HCPCS: 36415; 71045; 71275; 80048; 80076; 81003; 81015; 82550; 82553; 83605; 83690; 83735; 83880; 84100; 84484; 85025; 85379; 85610; 85730; 87040; 87086; 87088; 87804; 93005; 94760; 96365; 96375; 99285; G0378; J0456; J0696; J1100; J1650; J1940; J7030; J7050; Q9967

== ENCOUNTER 2024-09-12 12:01 | Emergency (ER) | payer BC, OTHER ==
[2024-09-12] MEDS ORDERED: KETOROLAC 30 MG/ML INJ ONE (12:47)
[2024-09-12] MEDS ORDERED: HYDROCODONE/APAP 7.5/325 MG TAB ONE (12:47)
[2024-09-12] MEDS ORDERED: dexAMETHasone 4 MG TAB ONE (12:48)
--- NOTE | 2024-09-12 13:10 | RAD REPORT ---
EXAMINATION: XR LEFT SHOULDER CLINICAL INDICATION: Male, 68 years old. PAIN TECHNIQUE: Internal and external AP view radiograph of the left shoulder were obtained. COMPARISON: No prior exam. FINDINGS: No evidence of fracture or dislocation. Normal alignment. Moderate to advanced AC joint deg enerative changes. No other focal bone lesion. Soft tissues are unremarkable. IMPRESSION: No acute osseous abnormalities. Degenerative changes as above.
--- NOTE | 2024-09-12 13:11 | RAD REPORT ---
EXAM: Chest Single View HISTORY: 68 years Male COUGH COMPARISON: 11/09/2019 FINDINGS: LUNGS/PLEURA: The lungs are clear. No pleural effusions or pneumothorax. No pulmonary edema. Elevated right hemidiaphragm is similar. CARDIAC/MEDIASTINUM: Magnified by portable technique, but may be within normal limits. UPPER ABDOMEN: No significant abnormality. BONES: No acute abnormality. LINES/TUBES/OTHER: N/A IMPRESSION: No evidence of acute cardiopulmonary disease.
--- NOTE | 2024-09-12 14:13 | EDPHYS ---
Physician Documentation [facility] Name: Mariano Hoyos Age: 68 yrs Sex: Male : 1955 Arrival Date: 09/12/2024 Time: 12:01 Bed DX3 Private MD: Slava Almaraz HPI: 09/12 14:06 This 68 yrs old Black Male presents to ER via Ambulatory with complaints of Shoulder adam Pain - LT. 14:06 The patient or guardian complains of decreased range of motion, pain, that is acute. adam left shoulder. Context: The problem was sustained at an unknown site, resulted from OLD INJURY. Onset: The symptoms/episode began/occurred 3 day(s) ago. Modifying factors: the symptoms are alleviated by remaining still, The symptoms are aggravated by movement. Associated signs and symptoms: The patient has no apparent associated signs or symptoms. Severity of symptoms: At their worst the symptoms were moderate, in the emergency department the symptoms are unchanged. Treatment prior to arrival includes: no previous treatment. The patient has experienced similar episodes in the past, several times. Historical: - Allergies: 12:14 No Known Allergies; me1 - PMHx: 12:14 High Cholesterol; Hypertension; me1 - PSHx: 12:14 AAA repair (Unknown); prostate surgery (Unknown); back surgery (Unknown); Operative me1 procedure on knee; - Immunization history:: Adult Immunizations up to date. - Infectious Disease History:: Denies. - Social history:: Smoking status: Patient denies any tobacco usage or history of. - Family history:: not pertinent. ROS: 14:06 Constitutional: Negative for fever, chills, and weight loss, Eyes: Negative for injury, adam pain, redness, and discharge, ENT: Negative for injury, pain, and discharge, Neck: Negative for injury, pain, and swelling, Cardiovascular: Negative for chest pain, palpitations, and edema, Respiratory: Negative for shortness of breath, cough, wheezing, and pleuritic chest pain, Abdomen/GI: Negative for abdominal pain, nausea, vomiting, diarrhea, and constipation, Back: Negative for injury and pain, : Negative for injury, bleeding, discharge, and swelling, Skin: Negative for injury, rash, and discoloration, Neuro: Negative for headache, weakness, numbness, tingling, and seizure, Psych: Negative for depression, anxiety, suicide ideation, homicidal ideation, and hallucinations, Allergy/Immunology: Negative for hives, rash, and allergies, Endocrine: Negative for neck swelling, polydipsia, polyuria, polyphagia, and marked weight changes, Hematologic/Lymphatic: Negative for swollen nodes, abnormal bleeding, and unusual bruising, 14:06 MS/extremity: Positive for decreased range of motion, pain, tenderness, of the anterior aspect of left shoulder and posterior aspect of left shoulder, Exam: 14:06 Constitutional: This is a well developed, well nourished patient who is awake, alert, adam and in no acute distress. Head/Face: Normocephalic, atraumatic. Eyes: Pupils equal round and reactive to light, extra-ocular motions intact. Lids and lashes normal. Conjunctiva and sclera are non-icteric and not injected. Cornea within normal limits. Periorbital areas with no swelling, redness, or edema. ENT: Nares patent. No nasal discharge, no septal abnormalities noted. Tympanic membranes are normal and external auditory canals are clear. Oropharynx with no redness, swelling, or masses, exudates, or evidence of obstruction, uvula midline. Mucous membranes moist. Neck: Trachea midline, no thyromegaly or masses palpated, and no cervical lymphadenopathy. Supple, full range of motion without nuchal rigidity, or vertebral point tenderness. No Meningismus. Chest/axilla: Normal chest wall appearance and motion. Nontender with no deformity. No lesions are appreciated. Cardiovascular: Regular rate and rhythm with a normal S1 and S2. No gallops, murmurs, or rubs. Normal PMI, no JVD. No pulse deficits. Respiratory: Lungs have equal breath sounds bilaterally, clear to auscultation and percussion. No rales, rhonchi or wheezes noted. No increased work of breathing, no retractions or nasal flaring. Abdomen/GI: Soft, non-tender, with normal bowel sounds. No distension or tympany. No guarding or rebound. No evidence of tenderness throughout. Back: No spinal tenderness. No costovertebral tenderness. Full range of motion. Male : Normal genitalia with no discharge or lesions. Skin: Warm, dry with normal turgor. Normal color with no rashes, no lesions, and no evidence of cellulitis. Neuro: Awake and alert, GCS 15, oriented to person, place, time, and situation. Cranial nerves II-XII grossly intact. Motor strength 5/5 in all extremities. Sensory grossly intact. Cerebellar exam normal. Normal gait. Psych: Awake, alert, with orientation to person, place and time. Behavior, mood, and affect are within normal limits. 14:06 Musculoskeletal/extremity: Extremities: grossly normal except: noted in the anterior aspect of left shoulder and posterior aspect of left shoulder: decreased ROM, pain, ROM: no acute changes, Circulation is intact in all extremities. Sensation intact. Compartment Syndrome exam of affected extremity: is normal. Weight bearin:10 Musculoskeletal/extremity: DVT Exam: no swelling, negative Homans' sign noted on exam, [facility] no appreciated bluish discoloration, no erythema, no increased warmth, pain, tenderness, 14:14 ECG was reviewed by the Attending Physician. [facility] Vital Signs: 12:11 BP 130 / 80; Pulse 75; Resp 17; Temp 98.5; Pulse Ox 98% ; Weight 97.07 kg; Height 5 ft. me1 10 in. ; Pain 10/10; 13:10 BP 144 / 77; Pulse 78; Resp 20; Pulse Ox 100% ; kj2 14:03 BP 139 / 77; Pulse 76; Resp 20; kj2 12:11 Body Mass Index 30.71 (97.07 kg, 177.8 cm) me1 12:11 Pain Scale: Adult me1 MDM: 12:09 Medical Screening Exam initiated adam 14:10 Differential diagnosis: Anterior dislocation with fracture, Anterior dislocation adam without fracture, Posterior dislocation with fracture, Posterior dislocation without fracture, humeral head fracture, glenoid fracture, DJD, tendonitis. Data reviewed: vital signs, nurses notes, lab test result(s), EKG, radiologic studies, plain films. Consideration of Admission/Observation Escalation of care including admission/observation considered. I considered the following discharge prescriptions or medication management in the emergency department Medications were administered in the Emergency Department. See MAR. Independent interpretation of the following test(s) in the Emergency Department EKG: See my EKG interpretation above. Test considered but Not performed: Labs: NO LABS. 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 09/12 12:10 Order name: XRAY Chest (1 view); Complete Time: 14:06 [facility] 09/12 12:10 Order name: Shoulder Left (2 View) XRAY; Complete Time: 14:06 [facility] 09/12 12:10 Order name: EKG; Complete Time: 12:11 [facility] 09/12 12:10 Order name: Cardiac monitoring; Complete Time: 14: [facility] 09/12 12:10 Order name: O2 Per Protocol; Complete Time: 14: [facility] 09/12 12:10 Order name: O2 Sat Monitoring; Complete Time: 14: [facility] 09/12 12:35 Order name: Sling; Complete Time: 14:18 [facility] 09/12 12:35 Order name: Ice pack; Complete Time: 14:18 [facility] EC: Rate is 72 beats/min. Rhythm is regular. QRS Hughson is Normal. WI interval is normal. QRS adam interval is normal. QT interval is normal. No Q waves. T waves are Normal. No ST changes noted. Clinical impression: NSR w/ Non-specific ST/T Changes and No evidence of ischemia. Interpreted by me. Reviewed by me. Administered Medications: 12:34 CANCELLED (Duplicate Order): aspirinchewable tablet 324 mg PO once; 81 mg tablets x 4 adam 13:00 Drug: Dexamethasone PO 10 mg PO once Route: PO; kj2 14:16 Follow up: Response: No adverse reaction kj2 13:00 Drug: Ketorolac IM 30 mg IM once Route: IM; Site: right deltoid; kj2 14:16 Follow up: Response: No adverse reaction kj2 13:00 Drug: Hydrocodone-Acetaminophen PO (7.5 mg-325 mg) 1 tabs PO once Route: PO; kj2 14:16 Follow up: Response: No adverse reaction kj2 14:17 Not Given (Physician Discretion; per physii): ns 0.9% 500 ml 500 ml IV at 1 bolus once; kj2 to be given as a bolus over 30 minutes Disposition Summary: 09/12/24 14:12 Discharge Ordered Notes: Location: Home adam Problem: new adam Symptoms: have improved adam Condition: Stable adam Diagnosis - Pain in left shoulder adam - Adhesive capsulitis of left shoulder adam Followup: adam - With: Private Physician - When: 2 - 3 days - Reason: Recheck today's complaints, Continuance of care, Re-evaluation by your physician Followup: adam - With: Baldomero Del Angel MD - When: 2 - 3 days - Reason: Recheck today's complaints, Re-evaluation by your physician Discharge Instructions: - Discharge Summary Sheet adam - Joint Pain adam - Arthritis adam - Musculoskeletal Pain adam - Shoulder Pain [facility] - How to Use Cold Therapy, [id number] [facility] - Shoulder Range of Motion Exercises adam - Shoulder Pain, [id number] adam - Arthritis, [id number] adam - Adhesive Capsulitis adam - Joint Pain, [id number] [facility] Forms: - Medication Reconciliation Form [facility] - Antibiotic Education [facility] - Prescription Opioid Use [facility] - Patient Portal Instructions [facility] - Leadership Thank You Letter [facility] Prescriptions: - diclofenac sodium 25 mg Oral tablet, delayed release (enteric coated) - take 1 tablet ORAL route 3 times per day; 21 tablet; Refills: 0, Product [facility] Selection Permitted - Medrol (Keegan) 4 mg Oral Tablets, Dose Pack - take 1 tablet ORAL route as directed - follow package instructions; 1 packet; [facility] Refills: 0, Product Selection Permitted - Tylenol-Codeine #3 300mg-30mg Oral tablet - take 1 tablet ORAL route every 4 hours As needed; 20 tablet; Refills: 0, [facility] Product Selection Permitted Signatures: Dispatcher [employer] Slava Munguia MD MD cha Eddleman, Michelle, RN RN me1 Tamara Conroy, RN RN kj2 Corrections: (The following items were deleted from the chart) 12:34 12:10 Aspirin PO Chewable Tablet 324 mg PO once; 81 mg tablets x 4 ordered. [facility] 12:34 12:10 EKG - Nurse/Tech ordered. [facility] 14:17 12:10 IV Saline Lock ordered. adam kj2 14:17 12:10 Labs collected and sent ordered. adam kj2
--- NOTE | 2024-09-12 14:13 | ER ---
Nurse's Notes [facility] Name: Mariano Hoyos Age: 68 yrs Sex: Male : 1955 Arrival Date: 09/12/2024 Time: 12:01 Bed DX3 Private MD: Diagnosis: Pain in left shoulder;Adhesive capsulitis of left shoulder Presentation: 09/12 12:11 Chief complaint: Patient states: about 4 days ago patient was pushing himself up from a me1 kneeling position and has had left shoulder pain since. 02/08. Reports injury to left shoulder about 23 years ago. Coronavirus screen: Vaccine status: Patient reports receiving the 2nd dose of the covid vaccine. Ebola Screen: No symptoms or risks identified at this time. Initial Sepsis Screen: Does the patient meet any 2 criteria? No. Patient's initial sepsis screen is negative. Does the patient have a suspected source of infection? No. Patient's initial sepsis screen is negative. Risk Assessment: Do you want to hurt yourself or someone else? Patient reports no desire to harm self or others. Onset of symptoms was September 09, 2023. 12:11 Method Of Arrival: Ambulatory ia1 12:11 Acuity: LESLIE 4 me1 Historical: - Allergies: 12:14 No Known Allergies; me1 - PMHx: 12:14 High Cholesterol; Hypertension; me1 - PSHx: 12:14 AAA repair (Unknown); prostate surgery (Unknown); back surgery (Unknown); Operative me1 procedure on knee; - Immunization history:: Adult Immunizations up to date. - Infectious Disease History:: Denies. - Social history:: Smoking status: Patient denies any tobacco usage or history of. - Family history:: not pertinent. Screenin:30 [facility] ED Fall Risk Assessment (Adult) History of falling in the last 3 months, kj2 including since admission No falls in past 3 months (0 pts) Confusion or Disorientation No (0 pts) Intoxicated or Sedated No (0 pts) Impaired Gait No (0 pts) Mobility Assist Device Used No (0 pt) Altered Elimination No (0 pt) Score/Fall Risk Level 0 - 2 = Low Risk Maintained a safe environment, Hourly rounding (assess needs \T\ fall precautionary measures) done. Abuse screen: Denies threats or abuse. Denies injuries from another. Nutritional screening: No deficits noted. Tuberculosis screening: No symptoms or risk factors identified. Assessment: 12:30 General: Appears in no apparent distress. uncomfortable, Behavior is cooperative. Pain: kj2 Complains of pain in left shoulder Pain currently is 9 out of 10 on a pain scale. Neuro: Level of Consciousness is awake, alert, obeys commands, Oriented to person, place, time, situation. Cardiovascular: Patient's skin is warm and dry. Respiratory: Airway is patent Respiratory effort is unlabored. GI: No signs and/or symptoms were reported involving the gastrointestinal system. : No signs and/or symptoms were reported regarding the genitourinary system. 13:13 Reassessment: Patient appears in no apparent distress at this time. Patient and/or kj2 family updated on plan of care and expected duration. Pain level reassessed. 13:57 Reassessment: Patient appears in no apparent distress at this time. Patient and/or kj2 family updated on plan of care and expected duration. Pain level reassessed. Patient is alert, oriented x 3, equal unlabored respirations, skin warm/dry/pink. 14:36 Reassessment: Patient appears in no apparent distress at this time. Patient and/or kj2 family updated on plan of care and expected duration. Pain level reassessed. Patient is alert, oriented x 3, equal unlabored respirations, skin warm/dry/pink. patient request to speak with MD before leaving. MD notified. Vital Signs: 12:11 BP 130 / 80; Pulse 75; Resp 17; Temp 98.5; Pulse Ox 98% ; Weight 97.07 kg; Height 5 ft. me1 10 in. ; Pain 10/10; 13:10 BP 144 / 77; Pulse 78; Resp 20; Pulse Ox 100% ; kj2 14:03 BP 139 / 77; Pulse 76; Resp 20; kj2 12:11 Body Mass Index 30.71 (97.07 kg, 177.8 cm) me1 12:11 Pain Scale: Adult me1 ED Course: 12:04 Patient arrived in ED. cj3 12:09 Slava Sun MD is Attending Physician. [facility] 12:14 Triage completed. me1 12:14 Arm band placed on Patient placed in waiting room. me1 12:30 Patient has correct armband on for positive identification. Bed in low position. Call kj2 light in reach. Adult w/ patient. Provided Education on: call light. 12:48 Tamara Conroy, RN is Primary Nurse. kj2 12:51 XRAY Chest (1 view) In Process Unspecified. EDMS 12:51 Shoulder Left (2 View) XRAY In Process Unspecified. EDMS 14:11 Baldomero Del Angel MD is Referral Physician. [facility] 14:18 No provider procedures requiring assistance completed. Patient did not have IV access kj2 during this emergency room visit. Administered Medications: 12:34 CANCELLED (Duplicate Order): aspirinchewable tablet 324 mg PO once; 81 mg tablets x 4 [facility] 13:00 Drug: Dexamethasone PO 10 mg PO once Route: PO; kj2 14:16 Follow up: Response: No adverse reaction kj2 13:00 Drug: Ketorolac IM 30 mg IM once Route: IM; Site: right deltoid; kj2 14:16 Follow up: Response: No adverse reaction kj2 13:00 Drug: Hydrocodone-Acetaminophen PO (7.5 mg-325 mg) 1 tabs PO once Route: PO; kj2 14:16 Follow up: Response: No adverse reaction kj2 14:17 Not Given (Physician Discretion; per physii): ns 0.9% 500 ml 500 ml IV at 1 bolus once; kj2 to be given as a bolus over 30 minutes Medication: 12:30 VIS not applicable for this client. kj2 Outcome: 14:12 Discharge ordered by . [facility] 14:18 Discharged to home ambulatory, kj2 14:18 Condition: stable 14:18 Discharge instructions given to patient, family, Instructed on discharge instructions, follow up and referral plans. Demonstrated understanding of instructions, follow-up care, 14:55 Patient left the ED. me1 Signatures: Dispatcher [employer] Slava Munguia MD MD cha Eddleman, Michelle, RN RN me1 Tamara Conroy, ALLISON RN kj2 Minal Morton 3
[2024-09-12 15:26] VITALS: BP 139/77; TEMP 98.5; O2SAT 100
--- NOTE | 2024-09-17 17:02 | EKG ---
Test Date: 2024-09-12 Test Time: 13:22:08 Java Groovy Developer: ABIGAIL MEASUREMENT RESULTS: Intervals: Rate: 72 MN: 170 QRSD: 80 QT: 408 QTc: 446 [place]: P: 49 MN: 170 QRS: 55 T: 52 INTERPRETIVE STATEMENTS: Normal sinus rhythm Cannot rule out Anterior infarct, age undetermined Abnormal ECG Compared to ECG 11/09/2019 19:32:05 No significant changes Electronically Signed On 09-17-24 16:56:18 CDT by Otf Cooper
== END 2024-09-12 14:55 | disposition home or self-care (01) ==
LOC: ER 12:01
DX: M75.02 Adhesive capsulitis of left shoulder (principal); I10 Essential (primary) hypertension; E78.00 Pure hypercholesterolemia, unspecified
CPT/HCPCS: 71045; 73030; J8540; 93005; 96372; 99284

== ENCOUNTER 2024-12-15 11:05 | Emergency (ER) | payer OTHER ==
[2024-12-15] MEDS ORDERED: KETOROLAC 30 MG/ML INJ ONE (12:40)
[2024-12-15] MEDS ORDERED: ONDANSETRON 4 MG/2 ML VIAL ONE (12:40)
[2024-12-15] MEDS ORDERED: MORPHINE 4 MG/ML SYR ONE (12:40)
[2024-12-15] MEDS ORDERED: NA CHLORIDE 0.9% 1,000 ML ONE (12:41)
[2024-12-15 12:51] LABS: Absolute Lymphocytes (CBC) 1.0 K/uL (0.7-4.9); Hematocrit 41.4 % (39.6-49.0); Hemoglobin 13.9 g/dL (13.6-17.9); MCH 31.8 pg (27.0-35.0); MCHC 33.6 g/dL (32.0-36.0); MCV 94.5 fL (80-100); MPV 9.8 fL (7.6-11.3); Nucleated RBC Absolute Count 0.0 (0-0); Nucleated Red Blood Cells % 0.0 % (0-0); RBC Red Blood Cell Count 4.38 M/uL (4.33-5.43); White Blood Count 10.30 thou/uL (4.3-10.9)
[2024-12-15 13:04] LABS: Sqamous Epithelial <5 /HPF (None Seen); Urine Culture Reflex Order NOT NEEDED; Urine Microscopic Reflex YN ORDER UMIC
[2024-12-15 13:11] LABS: ALT/SGPT 51.0 U/L (16-61); AST/SGOT 113.0 U/L (15-37); Albumin 3.7 g/dL (3.4-5.0); Albumin/Globulin Ratio 0.9 (1.1-1.8); Alkaline Phosphatase 187.0 U/L (45-117); Anion Gap 9.8 mEq/L (5.0-15.0); BUN Blood Urea Nitrogen 18.0 mg/dL (7-18); Globulin 3.9 g/dL (2.3-3.5); Glucose Level 106.0 mg/dL (74-106); Lipase 35.0 U/L (13-75); Potassium 3.8 mEq/L (3.5-5.1)
--- NOTE | 2024-12-15 14:40 | RAD REPORT ---
EXAM: CTA of the chest, abdomen and pelvis HISTORY: Chest and abdominal pain COMPARISON: CT chest 2019 TECHNIQUE: Multiple contiguous axial images were obtained a CTA of the chest and abdomen with contras t per aortic dissection protocol. Sagittal and coronal 3-D MIP reformats were performed. 100 cc Isovue-370 administered intravenously.Automated exposure control, adjustment of the mA and kV accordi ng to the patient size, and iterative reconstruction. Unless otherwise specified, incidental findings do not require dedicated imaging follow-up. FINDINGS: An aorto biiliac graft has been placed. The graft is patent. The galena left common iliac artery is thrombosed. Most of the galena left internal iliac artery thro mbosis. Mild plaque within the thoracic aorta and proximal aorta prior to the graft. An aortic dissection not seen. No aortic aneurysm The celiac and SMA are patent. Opacification of the inferior mesenteric artery not seen likely a snowblower mechanic javier finding. Renal arteries do not demonstrate a significant abnormality. Lungs are clear Mild fatty liver The spleen, pancreas, adrenals, kidneys and bladder do not demonstrate a significant abnormality No evidence of diverticulitis. Normal appendix. Post surgical changes lumbar spine. Moderate to marked prostatic enlargement Diastases of the rectus abdominis muscles with laxity of the anterior abdominal wall. Mild gallbladder distention IMPRESSION: No evidence of an aortic dissection Mild gallbladder distention
--- NOTE | 2024-12-15 14:53 | ER ---
Nurse's Notes [facility] Name: Mariano Hoyos Age: 69 yrs Sex: Male : 1955 Arrival Date: 12/15/2024 Time: 11:05 Bed 19 Private MD: Diagnosis: Strain of muscle and tendon of unspecified wall of thorax-right Presentation: 12/15 11:26 Chief complaint: Patient states: C/O right sided flank pain x3 days. Coronavirus ar8 screen: At this time, the client does not indicate any symptoms associated with coronavirus-19. Ebola Screen: No symptoms or risks identified at this time. Initial Sepsis Screen: Does the patient meet any 2 criteria? No. Patient's initial sepsis screen is negative. Does the patient have a suspected source of infection? No. Patient's initial sepsis screen is negative. Risk Assessment: Do you want to hurt yourself or someone else? Patient reports no desire to harm self or others. Onset of symptoms was December 12, 2024. 11:26 Method Of Arrival: Wheelchair ar8 11:26 Acuity: LESLIE 3 ar8 Triage Assessment: 11:29 General: Appears in no apparent distress. Behavior is calm, cooperative, appropriate ar8 for age. Pain: Complains of pain in posterior aspect of right lateral abdomen Pain currently is 10 out of 10 on a pain scale. Musculoskeletal: Circulation, motion, and sensation intact. Reports pain in right flank. Historical: - Allergies: 11:29 No Known Allergies; ar8 - PMHx: 11:29 High Cholesterol; Hypertension; ar8 - PSHx: 11:29 AAA repair; back surgery; Operative procedure on knee; Prostate surgery; ar8 - Immunization history:: Adult Immunizations up to date. - Infectious Disease History:: Denies. - Social history:: Smoking status: Patient denies any tobacco usage or history of. Screenin:00 [facility] ED Fall Risk Assessment (Adult) History of falling in the last 3 months, jl7 including since admission No falls in past 3 months (0 pts) Confusion or Disorientation No (0 pts) Intoxicated or Sedated No (0 pts) Impaired Gait Yes (1 pt) Mobility Assist Device Used Yes (1 pt) Altered Elimination No (0 pt) Score/Fall Risk Level 0 - 2 = Low Risk Oriented to surroundings, Maintained a safe environment. Abuse screen: Denies threats or abuse. Denies injuries from another. Nutritional screening: No deficits noted. Tuberculosis screening: No symptoms or risk factors identified. Assessment: 12:45 General: Appears in no apparent distress. uncomfortable, Behavior is calm, cooperative, jl7 appropriate for age. Pain: Complains of pain in back Pain currently is 10 out of 10 on a pain scale. Neuro: Cooper Agitation-Sedation Scale (RASS): 0 - Alert and Calm Level of Consciousness is awake, alert, obeys commands, Oriented to person, place, time, situation. Cardiovascular: Patient's skin is warm and dry. Respiratory: Airway is patent Respiratory effort is even, unlabored, Respiratory pattern is regular, symmetrical. Derm: Skin is pink, warm \T\ dry. 13:45 Reassessment: Patient appears in no apparent distress at this time. Patient and/or jl7 family updated on plan of care and expected duration. Pain level reassessed. Patient is alert, oriented x 3, equal unlabored respirations, skin warm/dry/pink. Patient states feeling better. Patient states symptoms have improved. 14:45 Reassessment: Patient appears in no apparent distress at this time. No changes from jl7 previously documented assessment. Patient and/or family updated on plan of care and expected duration. Pain level reassessed. Patient is alert, oriented x 3, equal unlabored respirations, skin warm/dry/pink. Vital Signs: 11:26 BP 123 / 74; Pulse 78; Resp 18; Temp 98.2; Pulse Ox 98% on R/A; Weight 97.07 kg; Height ar8 5 ft. 10 in. ; Pain 10/10; 14:45 BP 137 / 71; Pulse 72; Resp 15; Pulse Ox 94% ; jl7 11:26 Body Mass Index 30.71 (97.07 kg, 177.8 cm) ar8 11:26 Pain Scale: Adult ar8 ED Course: 11:10 Patient arrived in ED. im 11:14 Fany Agee PA-C is PHCP. sb4 11:14 Marni Hahn MD is Attending Physician. sb4 11:29 Triage completed. ar8 11:32 Arm band placed on right wrist. ar8 12:34 Bright Weston RN is Primary Nurse. jl7 12:45 Inserted saline lock: 22 gauge in left antecubital area, using aseptic technique. Blood ts3 collected. Flushed with 10 mL NS. 12:46 Initial lab(s) drawn, by ED staff, sent to lab. ts3 12:57 Urine collected: clean catch specimen, sent to lab. ts3 13:00 Patient has correct armband on for positive identification. Provided Education on: use jl7 of call lopez. 14:10 CT Aorta for Dissection In Process Unspecified. EDMS 15:09 No provider procedures requiring assistance completed. IV discontinued, intact, jl7 bleeding controlled, No redness/swelling at site. Pressure dressing applied. Administered Medications: 12:58 Drug: Ondansetron IVP 4 mg IVP once; over 2 minutes Route: IVP; Site: left antecubital; jl7 15:08 Follow up: Response: No adverse reaction jl7 12:58 Drug: NS 0.9% IV 1000 ml IV at 1 bolus Per protocol; to be given as a bolus over 60 jl7 minutes Route: IV; Rate: 1 bolus; Site: left antecubital; 14:00 Follow up: Response: No adverse reaction; IV Status: Completed infusion; IV Intake: jl7 1000ml 12:59 Drug: TORadol - Ketorolac IVP 15 mg IVP once Route: IVP; Site: left antecubital; jl7 13:30 Follow up: Response: No adverse reaction; Pain is decreased jl7 12:59 Drug: morphine IVP or IV 4 mg IVP once over 4 mins Route: IVP; Infused Over: 4 mins; jl7 Site: left antecubital; 13:30 Follow up: Response: No adverse reaction; Pain is decreased jl7 Medication: 14:45 VIS not applicable for this client. jl7 Intake: 14:00 IV: 1000ml; Total: 1000ml. jl7 Outcome: 14:53 Discharge ordered by . sb4 15:09 Discharged to home via wheelchair, with family, jl7 15:09 Condition: stable 15:09 Discharge instructions given to patient, family, Instructed on discharge instructions, follow up and referral plans. medication usage, Demonstrated understanding of instructions, follow-up care, medications, Prescriptions given X 2, 15:10 Patient left the ED. jl7 Signatures: Dispatcher [employer] EDBright Sawant RN RN jl7 Fany Agee PA-C PA-C sb4 Smita Guerrero Taisha ts3 Rakesh Rodriguez, RN RN ar8
--- NOTE | 2024-12-15 14:53 | EDPHYS ---
Physician Documentation [facility] Name: Mariano Hoyos Age: 69 yrs Sex: Male : 1955 Arrival Date: 12/15/2024 Time: 11:05 Bed 19 Private MD: ED Physician Marni Hahn HPI: 12/15 13:28 This 69 yrs old Black Male presents to ER via Wheelchair with complaints of Flank Pain, sb4 Back Pain. 13:28 Patient reports right-sided flank pain and abdominal pain for about 3 days now. sb4 Believes it is secondary to straining himself while mowing the lawn. States the pain is improved with rest, ice, and heat, worse with movements. Denies any urinary symptoms, constipation, nausea, vomiting, diarrhea, fever, chills. Historical: - Allergies: 11:29 No Known Allergies; ar8 - PMHx: 11:29 High Cholesterol; Hypertension; ar8 - PSHx: 11:29 AAA repair; back surgery; Operative procedure on knee; Prostate surgery; ar8 - Immunization history:: Adult Immunizations up to date. - Infectious Disease History:: Denies. - Social history:: Smoking status: Patient denies any tobacco usage or history of. ROS: 13:28 Constitutional: Negative for fever, chills, and weight loss, sb4 13:28 Back: Positive for pain at rest, of the right mid back, 13:28 All other systems are negative, Exam: 13:28 Head/Face: Normocephalic, atraumatic. Eyes: Extra-ocular motions intact. Periorbital sb4 areas with no swelling, redness, or edema. ENT: Mucous membranes moist. Cardiovascular: Regular rate and rhythm with a normal S1 and S2. Respiratory: No increased work of breathing, no retractions or nasal flaring. Abdomen/GI: Soft, non-tender, no distension. Skin: Warm, dry with normal turgor. Normal color with no rashes, no lesions, and no evidence of cellulitis. Neuro: Awake and alert, GCS 15, oriented to person, place, time, and situation. Motor strength 5/5 in all extremities. Sensory grossly intact. 13:28 Constitutional: The patient appears in no acute distress, alert, awake, Vital Signs: 11:26 BP 123 / 74; Pulse 78; Resp 18; Temp 98.2; Pulse Ox 98% on R/A; Weight 97.07 kg; Height ar8 5 ft. 10 in. ; Pain 10/10; 14:45 BP 137 / 71; Pulse 72; Resp 15; Pulse Ox 94% ; jl7 11:26 Body Mass Index 30.71 (97.07 kg, 177.8 cm) ar8 11:26 Pain Scale: Adult ar8 MDM: 11:16 Medical Screening Exam initiated sb4 13:29 Differential diagnosis: nephrolithiasis, pyelonephritis, UTI, ruptured AAA, dissecting sb4 AAA, Muscle strain. Historians other than the Patient: Spouse/Significant Other: . Care significantly affected by the following chronic conditions: Hypertension. 14:55 Data reviewed: vital signs, nurses notes, lab test result(s), radiologic studies, and sb4 as a result, I will discharge patient. Counseling: I had a detailed discussion with the patient and/or guardian regarding the historical points, exam findings, and any diagnostic results supporting the discharge/admit diagnosis, lab results, radiology results, the need for outpatient follow up, for definitive care, to return to the emergency department if symptoms worsen or persist or if there are any questions or concerns that arise at home. Special discussion: I discussed with the patient the need to follow-up with the PCP/specialist for the noted incidental finding on X-ray/CT scanning. 12/15 12:36 Order name: CBC with Diff; Complete Time: 12:58 sb4 12/15 12:36 Order name: CMP; Complete Time: 13:11 sb4 12/15 12:36 Order name: Lipase; Complete Time: 13:11 sb4 12/15 12:37 Order name: UA Rfx Sung Cult if indicated; Complete Time: 13:06 sb4 12/15 13:07 Order name: CT Aorta for Dissection; Complete Time: 14:42 sb4 12/15 12:36 Order name: IV Saline Lock; Complete Time: 12:43 sb4 12/15 12:37 Order name: Labs collected and sent; Complete Time: 12:43 sb4 Administered Medications: 12:58 Drug: Ondansetron IVP 4 mg IVP once; over 2 minutes Route: IVP; Site: left antecubital; 7 15:08 Follow up: Response: No adverse reaction jl7 12:58 Drug: NS 0.9% IV 1000 ml IV at 1 bolus Per protocol; to be given as a bolus over 60 jl7 minutes Route: IV; Rate: 1 bolus; Site: left antecubital; 14:00 Follow up: Response: No adverse reaction; IV Status: Completed infusion; IV Intake: jl7 1000ml 12:59 Drug: TORadol - Ketorolac IVP 15 mg IVP once Route: IVP; Site: left antecubital; jl7 13:30 Follow up: Response: No adverse reaction; Pain is decreased jl7 12:59 Drug: morphine IVP or IV 4 mg IVP once over 4 mins Route: IVP; Infused Over: 4 mins; jl7 Site: left antecubital; 13:30 Follow up: Response: No adverse reaction; Pain is decreased jl7 Disposition Summary: 12/15/24 14:53 Discharge Ordered Notes: Location: Home sb4 Problem: new sb4 Symptoms: have improved sb4 Condition: Stable sb4 Diagnosis - Strain of muscle and tendon of unspecified wall of thorax - right sb4 Followup: sb4 - With: Emergency Department - When: As needed - Reason: Trouble breathing, Worsening of condition Discharge Instructions: - Discharge Summary Sheet sb4 - Muscle Strain, [id number] sb4 - Flank Pain, Adult, [id number] sb4 - Gallbladder Eating Plan sb4 Forms: - Patient Portal Instructions sb4 - Leadership Thank You Letter sb4 Prescriptions: - Anaprox DS 550 mg Oral Tablet - take 1 tablet ORAL route every 12 hours As needed; 20 tablet; Refills: 0, sb4 Product Selection Permitted - methocarbamol 750 mg Oral tablet - take 1 tablet ORAL route every 4 hours; 15 tablet; Refills: 0, Product sb4 Selection Permitted Signatures: Dispatcher [employer] EDMS Bright Weston RN RN jl7 Fany Agee PA-C PAEugenio sb4 Rakesh Rodriguez, RN RN ar8 Corrections: (The following items were deleted from the chart) 12:37 12:37 UA Rfx Sung Cult if indicated+[id number].BRZ ordered. EDMS EDMS
[2024-12-15 20:57] VITALS: TEMP 98.2
[2024-12-15 21:04] VITALS: BP 137/71; O2SAT 94
== END 2024-12-15 15:10 | disposition home or self-care (01) ==
LOC: ER 11:05
DX: S29.012A Strain of muscle and tendon of back wall of thorax, initial encounter (principal)
CPT/HCPCS: 96361; 85025; 81001; 36415; 83690; 80053; 71275; 74175; 96375; 96374; 99284; Q9967; J2405; J7030